=== PATIENT | female | born 1995 | race Caucasian/White ===

== ENCOUNTER 2016-05-26 02:56 | Day surgery (SDC) | payer MEDICAID, OTHER ==
[~2016-05-26] VITALS: Ht 152.4 cm; Wt 55.1 kg
--- OUTSIDE RECORDS SUMMARY | 2016-05-26 03:03 | XMS REPORT | Continuity of Care Document ---
Author Author [facility] Organization [facility] Address [address] [place] [address] Phone Unavailable Care Team Providers Care Mail Courier Name Role Phone ELINA GREENFIELD JR, MD PCP Insurance Providers Payer Name Policy Number Subscriber Name Relationship [facility] [id number] Laure Steiner 19 [facility] [id number] Laure Steiner 18 Self / Same As Patient Advance Directives Directive Response Recorded Date/Time Living Will No 03/27/13 4:41pm Advance Directives No 09/19/14 7:43pm Durable POA for HC No 09/19/14 7:43pm Power of Pressure Supervisor No 09/19/14 7:43pm Organ Donor No 09/19/14 7:42pm Living Will No 09/19/14 7:43pm Problems No known problems or medical conditions. Medications No known medications. Social History Social History Problem Response Recorded Date/Time Smoking Status Never smoker 09/19/2014 8:21pm Smoked in the last 12 months? No 09/19/2014 8:21pm Do you dip or chew tobacco? No 09/19/2014 8:21pm Approx how many cigs per day? 0 09/19/2014 8:21pm Level of Dependence Low 09/19/2014 8:21pm Former smoker, last day smoked? never 09/19/2014 8:21pm Query Response Start Date Stop Date Smoking Status Never smoker Hospital Discharge Instructions No hospital discharge instructions. Plan of Care No plan of care. Functional Status Query Response Date Recorded Activities of Daily Living Performs w/o Assistance September 19, 2014 8:22pm Cognitive Function Intact September 19, 2014 8:22pm Allergies, Adverse Reactions, Alerts No known allergies. Immunizations No immunization records. Vital Signs Acute Vital Signs Vital Response Date/Time Pulse Pulse Ox Pulse Rate (adult) 88 beats per minute (60 - 90) Pulse Location Modifier Right Oxygen Saturation Respiratory Rate 20 breaths per minute (12 - 24) O2 Sat by Pulse Oximetry 97 % (90 - 100) Blood Pressure 137/89 mm Hg Blood Pressure Mean 105 mm Hg Height 5 ft 0 in Weight 125 lb Body Mass Index 24.4 kg/m^2 Results No known relevant diagnostic tests, laboratory data and/or discharge summary. Procedures No known history of procedures. Encounters Encounter Location Date/Time Departed Emergency Room [facility] 09/19/14 7:43pm
[2016-05-26 03:29] LABS: BILIRUBIN,URINE NEGATIVE (NEGATIVE); KETONES,URINE NEGATIVE (NEGATIVE); NITRITE,URINE NEGATIVE (NEGATIVE); PH,URINE 6 (5-9); PROTEIN,URINE NEGATIVE (NEGATIVE); UROBILINOGEN,URINE NORMAL (NORMAL)
[2016-05-26 03:42] LABS: LEUKOCYTE ESTERASE ,URINE 1+ (NEGATIVE)
[2016-05-26 03:43] LABS: BASOPHILS % (AUTO) 0 % (0-10); EOSINOPHILS # (AUTO) 0.3 10^3/uL (0.0-0.3); EOSINOPHILS % (AUTO) 3 % (0-10); LYMPHOCYTES # (AUTO) 4.1 X 10^3 (1.0-4.0); LYMPHOCYTES % (AUTO) 39 % (12-44); MEAN CORPUSCULAR HEMOGLOBIN 30 PG (25-34); MEAN CORPUSCULAR HGB CONC 34 G/DL (32-36); MEAN CORPUSCULAR VOLUME 88 FL (80-99); MEAN PLATELET VOLUME 10.2 FL (7.4-10.4); MONOCYTES # (AUTO) 0.9 X 10^3 (0.0-1.0); MONOCYTES % (AUTO) 9 % (0-12); NEUTROPHILS % (AUTO) 49 % (42-75); PLATELET COUNT 263 10^3/uL (130-400); RED BLOOD COUNT 4.73 10^6/uL (4.35-5.85); RED CELL DISTRIBUTION WIDTH 13.1 % (10.0-14.5); WHITE BLOOD COUNT 10.3 10^3/uL (4.3-11.0)
[2016-05-26 03:43] LABS: WBC,URINE 0-2 /HPF
[2016-05-26 03:57] LABS: ALANINE AMINOTRANSFERASE 12 U/L (0-55); ALBUMIN 4.3 G/DL (3.2-4.5); ANION GAP 11 MMOL/L (5-14); ASPARTATE AMINO TRANSFERASE 16 U/L (5-34); BILIRUBIN,TOTAL 0.4 MG/DL (0.1-1.0); BLOOD UREA NITROGEN 13 MG/DL (7-18); BUN/CREATININE RATIO 15; CALCIUM 9.7 MG/DL (8.5-10.1); CARBON DIOXIDE 24 MMOL/L (21-32); CHLORIDE 106 MMOL/L (98-107); CREATININE SERUM 0.87 MG/DL (0.60-1.30); GFR ESTIMATED > 60; GLUCOSE 91 MG/DL (70-105); POTASSIUM 3.8 MMOL/L (3.6-5.0); SODIUM 141 MMOL/L (135-145); TOTAL PROTEIN 7.1 G/DL (6.4-8.2)
[2016-05-26] MEDS ORDERED: NS 100 ML (IVPB) BAG IV ONE (04:00)
[2016-05-26] MEDS ORDERED: IOHEXOL 350 MG/ML 100 ML (OMNIPAQUE 350) VIAL IV ONE (04:00)
[2016-05-26] MEDS ORDERED: KETOROLAC 30 MG/ML VIAL IVP ONE (05:15)
[2016-05-26] MEDS ORDERED: PIPERACILLIN SODIUM/TAZOBACTAM 4.5 GM in NS (IVPB) 100 ML IV ONE ×2 (05:15→13:45)
[2016-05-26] MEDS ORDERED: D5 1/2 NS 1000 ML IV SOLUTION 1,000 ML IV ONE (06:00)
[2016-05-26] MEDS: D5 1/2 NS 1000 ML IV SOLUTION 1,000 ML IV SCH ×2 (06:10→11:21)
[2016-05-26] MEDS ORDERED: ONDANSETRON 4 MG/2 ML (SDV) Z0FRAN IV PRN (06:15)
[2016-05-26] MEDS ORDERED: fentaNYL INJECTION 100 MCG/2 ML AMP IV PRN (06:30)
[2016-05-26] MEDS ORDERED: CATHETER FLUSH 10 ML SYR IV PRN (06:30)
--- NOTE | 2016-05-26 06:37 | ED Abdominal Pain ---
General Chief Complaint: Abdominal/GI Problems Stated Complaint: RLQ PAIN POSSIBLE APPENDICITIS Nursing Triage Note: Pt. advises lower abdominal pain that has become progressively worse. She advises a previous hx. of bladder and kidney infections. Sepsis Screen: No Definite Risk Source of Information: Patient History of Present Illness Time Seen By Provider: 03:23 Initial Comments PT STATES FOR THE LAST 2 DAYS SHE HAS HAD A CONSTANT DULL PAIN IN LOWER ABDOMEN TONIGHT PAIN IS MUCH WORSE AND SHARP AND IS IN RLQ AND RADIATES TO RIGHT FLANK HAS SOME PAIN AT THE END OF VOIDING, BUT OTHERWISE NO URINARY SYMPTOMS + NAUSEA, NO VOMITING. C/O DECREASED APPETITE--LAST FOOD INTAKE WAS 1700 YESTERDAY NO KNOWN FEVER, BUT HAS BEEN HAVING CHILLS LMP 1 WEEK AGO, ON OCP'S. DENIES MISSED DOSES OF PILLS. PCP: NONE--JUST MOVED HERE IN JANUARY FROM [place] Allergies and Home Medications Allergies Coded Allergies: No Known Drug Allergies (Unverified , 05/26/16) Review of Systems Constitutional: see HPI chills EENTM: No Symptoms Reported Respiratory: No Symptoms Reported Cardiovascular: No Symptoms Reported Gastrointestinal: See HPI Abdominal PainDenies Diarrhea, Nausea Poor AppetiteDenies Vomiting Genitourinary: See HPIDenies Burning, Denies Frequency, Flank PainDenies Hematuria, PainDenies Urgency Musculoskeletal: see HPI back pain Skin: no symptoms reported Psychiatric/Neurological: No Symptoms Reported Endocrine: No Symptoms Reported Hematologic/Lymphatic: No Symptoms Reported Past Iwilfgo-Wsphdy-Xlqnpo Hx Patient Social History Alcohol Use: Denies Use Recreational Drug Use: No Smoking Status: Never a Smoker Recent Foreign Travel: No Contact w/Someone Who Travel: No Recent Infectious Disease Expo: No Recent Hopitalizations: No Seasonal Allergies Seasonal Allergies: No Surgeries HX Surgeries: No Respiratory Hx Respiratory Disorders: Yes Respiratory Disorders: Asthma Cardiovascular Hx Cardiac Disorders: Yes Cardiac Disorders: Heart Murmur, Valvular Heart Disease Neurological Hx Neurological Disorders: No Reproductive System : No Hx : 1 Hx Para: 1 Hx Reproductive Disorders: No Female Reproductive Disorders: Denies Genitourinary Hx Genitourinary Disorders: Yes (HAS UTI'S APPROXIMATELY ONCE A YEAR ) Genitourinary Disorders: Kidney Infection, Bladder Infection Gastrointestinal Hx Gastrointestinal Disorders: No Musculoskeletal Hx Musculoskeletal Disorders: No Endocrine Hx Endocrine Disorders: No HEENT HX ENT Disorders: No Cancer Hx Cancer: No Psychosocial Hx Psychiatric Problems: No Integumentary HX Skin/Integumentary Disorder: No Blood Transfusions Hx Blood Disorders: No Physical Exam Vital Signs VS - Last 72 Hours, by Label 05/26/16 03:23 Pulse 86 Resp 12 B/P 127/77 Pulse Ox 98 O2 Delivery Room Air Capillary Refill : Less Than 3 Seconds General Appearance: WD/WN no apparent distress other (WALKS UPRIGHT AND MOVES WITHOUT DIFFICULTY) HEENT: PERRL/EOMI Neck: normal inspection Respiratory: normal breath sounds no respiratory distress no accessory muscle use Cardiovascular: regular rate, rhythm no murmur Gastrointestinal: normal bowel sounds soft no organomegaly no pulsatile massNo distended, No guarding, No rebound, tenderness (SIGNIFICANT TENDERNESS IN RLQ AND SUPRAPUBIC AREA, MILD TO MODERATE TENDERNESS IN RIGHT FLANK AND IN LLQ. EQUIVOCAL ROVSING'S. NEGATIVE HEEL TAP. EQUIVOCAL PSOAS AND OBTURATOR SIGNS. ) Back: CVA tenderness (R) Neurologic/Psychiatric: ribbon lapper tender II-XII nml as tested no motor/sensory deficits alert normal mood/affect oriented x 3 Skin: normal color warm/dryNo rash Progress/Results/Core Measures Results/Orders Lab Results Laboratory Tests Test 05/26/16 03:10 05/26/16 03:19 Range/Units Urine Bacteria TRACE /HPF Urine Bilirubin NEGATIVE NEGATIVE Urine Casts NONE /LPF Urine Clarity CLEAR Urine Color YELLOW Urine Crystals NONE /LPF Urine Culture Indicated NO Urine Glucose (UA) NEGATIVE NEGATIVE Urine Ketones NEGATIVE NEGATIVE Urine Leukocyte Esterase 1+ H NEGATIVE Urine Mucus NEGATIVE /LPF Urine Nitrite NEGATIVE NEGATIVE Urine Protein NEGATIVE NEGATIVE Urine RBC NONE /HPF Urine RBC (Auto) NEGATIVE NEGATIVE Urine Specific [place] 1.010 L 1.016-1.022 Urine Squamous Epithelial Cells 5-10 /HPF Urine Urobilinogen NORMAL NORMAL MG/DL Urine WBC 0-2 /HPF Urine pH 6 5-9 Alanine Aminotransferase (ALT/SGPT) 12 0-55 U/L Albumin 4.3 3.2-4.5 G/DL Alkaline Phosphatase 93 40-136 U/L Anion Gap 11 5-14 MMOL/L Aspartate Amino Transf (AST/SGOT) 16 5-34 U/L BUN/Creatinine Ratio 15 Basophils # (Auto) 0.0 0.0-0.1 10^3/uL Basophils (%) (Auto) 0 0-10 % Blood Urea Nitrogen 13 7-18 MG/DL Calcium Level 9.7 8.5-10.1 MG/DL Carbon Dioxide Level 24 21-32 MMOL/L Chloride Level 106 98-107 MMOL/L Creatinine 0.87 0.60-1.30 MG/DL Eosinophils # (Auto) 0.3 0.0-0.3 10^3/uL Eosinophils (%) (Auto) 3 0-10 % Estimat Glomerular Filtration Rate > 60 Glucose Level 91 70-105 MG/DL Hematocrit 42 35-52 % Hemoglobin 14.1 11.5-16.0 G/DL Lymphocytes # (Auto) 4.1 H 1.0-4.0 X 10^3 Lymphocytes (%) (Auto) 39 12-44 % Mean Corpuscular Hemoglobin 30 25-34 PG Mean Corpuscular Hemoglobin Concent 34 32-36 G/DL Mean Corpuscular Volume 88 80-99 FL Mean Platelet Volume 10.2 7.4-10.4 FL Monocytes # (Auto) 0.9 0.0-1.0 X 10^3 Monocytes (%) (Auto) 9 0-12 % Neutrophils # (Auto) 5.0 1.8-7.8 X 10^3 Neutrophils (%) (Auto) 49 42-75 % Platelet Count 263 130-400 10^3/uL Potassium Level 3.8 3.6-5.0 MMOL/L Red Blood Count 4.73 4.35-5.85 10^6/uL Red Cell Distribution Width 13.1 10.0-14.5 % Sodium Level 141 135-145 MMOL/L Total Bilirubin 0.4 0.1-1.0 MG/DL Total Protein 7.1 6.4-8.2 G/DL White Blood Count 10.3 4.3-11.0 10^3/uL My Orders Orders-GARDENIA XIAO DO Ua Culture If Indicated (05/26/16 03:23) Urine Bedside (05/26/16 03:23) Cbc With Automated Diff (05/26/16 03:32) Comprehensive Metabolic Panel (05/26/16 03:32) Ct Abd/Pelv W (Appendicitis) (05/26/16 03:52) Iohexol Injection (Omnipaque 350 Mg/Ml 1 (05/26/16 04:00) Ns (Ivpb) (Sodium Chloride 0.9% Ivpb Bag (05/26/16 04:00) Medications Given in ED Current Medications Medications Dose Ordered Sig/Rodger Route Start Time Stop Time Status Last Admin Dose Admin Iohexol 100 ml ONCE ONCE IV 05/26/16 04:00 05/26/16 06:14 DC 05/26/16 04:13 100 ML Sodium Chloride 100 ml ONCE ONCE IV 05/26/16 04:00 05/26/16 06:14 DC 05/26/16 04:13 80 ML Vital Signs/I&O Vital Sign - Last 12Hours 05/26/16 03:23 Pulse 86 Resp 12 B/P 127/77 Pulse Ox 98 O2 Delivery Room Air Blood Pressure Mean: 94 Point of Care Testing Urine -Bedside: Negative Diagnostic Imaging Comments CT ABDOMEN/PELVIS--APPENDIX 6 MM WITHOUT EVIDENCE OF INTRALUMINAL FLUID OR ADJACENT INFILTRATIVE CHANGES, BILATERAL ADNEXAL CYSTS 4.7 CM ON LEFT, 5.5 CM ON RIGHT--PER [facility] VIA FAX @ [phone] Reviewed: Reviewed by Me Departure Communication Progress Notes 0505--SPOKE WITH DR. POLANCO, ACCEPTS PT FOR ADMIT, ORDERS NOTED. Impression Impression: Primary Impression: RLQ PAIN, POSSIBLE APPENDICITIS Disposition: ADMITTED INPATIENT Condition: Stable Decision to Admit Reason: Admit from ER (General) Decision to Admit/Date: May 26, 2016 Time/Decision to Admit Time: 05:05 Departure-Patient Inst. Referrals: NO,LOCAL PHYSICIAN (PCP) Primary Care Physician GARDENIA XIAO DO May 26, 2016 06:37
[2016-05-26 08:00] VITALS: BP 100/61
--- NOTE | 2016-05-26 08:07 | Diagnostic Imaging Report ---
PROCEDURE: CT abdomen and pelvis with contrast, rule out appendicitis. TECHNIQUE: Multiple contiguous axial images were obtained through the abdomen and pelvis after the administration of intravenous contrast. INDICATION: Right lower quadrant pain. Appendix best seen on axial image 80 with maximal transverse diameter 5.7 mm. No appreciable periappendiceal edema or infiltration of the adjacent fat. No appendicolith. No findings felt suggestive of evidence for appendicitis. There is an elongated thin walled left adnexal cyst presumed ovarian 4.6 x 3.3 cm. The uterus, right adnexa and urinary bladder appeared normal. There is probable posterior uterine body and fundal fibroids There is no hydronephrosis or perinephric edema. The gallbladder contracted with no visualized stone. Liver, bile ducts, spleen, adrenals and pancreas unremarkable. IMPRESSION: Unremarkable appendix, large left ovarian/adnexal cyst. Likely chronic uterine fibroids. Unobstructed urinary tracts, no focal inflammatory process, ascites or viscus perforation. Dictated by: Dictated on workstation # [id number]
--- NOTE | 2016-05-26 08:39 | History & Physical-Surgical ---
History of Present Illness History of Present Illness Reason for visit/HPI Patient reports that she has been having right lower quadrant pain for the last 2 days. Patient states that she was at work when it first stated and she tried to power through her shift. Reports some nausea but no vomiting. She describes pain as sharp. Abdomen is soft to palpation. Patient complains of pain with palpation to the right lower quadrant. No rebound tenderness. Patient was admitted to the hospital through the ER. Denied any fever in the last two days. She also states that nothing made the pain better or worse. Date of Admission May 26, 2016 at 05:05 I consulted on this patient on 05/26/16 08:34 Attending Physician Rupert Polanco DO Admitting Physician Susanna,Local Physician Consult Allergies and Home Medications Allergies Coded Allergies: No Known Drug Allergies (Unverified , 05/26/16) Home Medications Docusate Sodium 100 Mg Capsule #60 100 MG PO BID Prescribed by: RUPERT POLANCO on 05/26/16 1345 Hydrocodone/Acetaminophen 1 Each Tablet #30 1 TAB PO Q4H PRN PRN Prescribed by: RUPERT POLANCO on 05/26/16 1345 Norgestimate-Ethinyl Estradiol 1 Each Tablet 1 TAB PO DAILY (Reported) Past Olyiezl-Frbxrk-Tycicu Hx Patient Social History Alcohol Use: Denies Use Recreational Drug Use: No Smoking Status: Never a Smoker Recent Foreign Travel: No Contact w/Someone Who Travel: No Recent Infectious Disease Expo: No Recent Hopitalizations: No Physical Abuse Screen: No Sexual Abuse: No Immunizations Up To Date Date of Influenza Vaccine: Jan 17, 2016 Seasonal Allergies Seasonal Allergies: No Surgeries HX Surgeries: No Respiratory Hx Respiratory Disorders: Yes Respiratory Disorders: Asthma Cardiovascular Hx Cardiac Disorders: Yes Cardiac Disorders: Heart Murmur, Valvular Heart Disease Neurological Hx Neurological Disorders: No Reproductive System : No Hx : 1 Hx Para: 1 Hx Reproductive Disorders: No Sexually Transmitted Disease: No HIV/AIDS: No Female Reproductive Disorders: Denies Genitourinary Hx Genitourinary Disorders: Yes (HAS UTI'S APPROXIMATELY ONCE A YEAR ) Genitourinary Disorders: Kidney Infection, Bladder Infection Gastrointestinal Hx Gastrointestinal Disorders: No Musculoskeletal Hx Musculoskeletal Disorders: No Endocrine Hx Endocrine Disorders: No HEENT HX ENT Disorders: No Cancer Hx Cancer: No Psychosocial Hx Psychiatric Problems: No Integumentary HX Skin/Integumentary Disorder: No Blood Transfusions Hx Blood Disorders: No Adverse Reaction to a Blood Tr: No Family Medical History Significant Family History: No Pertinent Family Hx Constitutional: see HPI EENTM: no symptoms reported Respiratory: no symptoms reported Cardiovascular: no symptoms reported Gastrointestinal: RLQ nausea Genitourinary: no symptoms reported Musculoskeletal: no symptoms reported Skin: no symptoms reported Psychiatric/Neurological: No Symptoms Reported Physical Exam Vital Signs Vital Sign - Last 12Hours 05/26/16 05/26/16 03:23 08:00 Temp 98.3 Pulse 86 Resp 12 B/P 127/77 Pulse Ox 98 O2 Delivery Room Air Capillary Refill : Less Than 3 Seconds General Appearance: No Apparent Distress WD/WN Neck: Normal Inspection Non Tender Respiratory: Chest Non Tender No Accessory Muscle Use No Respiratory Distress Cardiovascular: Regular Rate, Rhythm Gastrointestinal: No Organomegaly No Pulsatile Mass Soft Tenderness (RLQ and suprapubic) Extremity: Non Tender No Calf Tenderness No Pedal Edema Neurologic/Psychiatric: Alert Oriented x3 Skin: Normal Color Data Review Labs Microbiology 05/26/16 MRSA Screen - Final, Complete MRSA not isolated Radiology NAME: ALVARO KIDD [facility] REC#: [id number] PT STATUS: ADM Kaci : 1995 PHYSICIAN: GARDENIA XIAO DO ADMIT DATE: 05/26/16 Draft Date of Exam:05/26/16 CT ABD/PELV W (APPENDICITIS) PROCEDURE: CT abdomen and pelvis with contrast, rule out appendicitis. TECHNIQUE: Multiple contiguous axial images were obtained through the abdomen and pelvis after the administration of intravenous contrast. INDICATION: Right lower quadrant pain. Appendix best seen on axial image 80 with maximal transverse diameter 5.7 mm. No appreciable periappendiceal edema or infiltration of the adjacent fat. No appendicolith. No findings felt suggestive of evidence for appendicitis. There is an elongated thin walled left adnexal cyst presumed ovarian 4.6 x 3.3 cm. The uterus, right adnexa and urinary bladder appeared normal. There is probable posterior uterine body and fundal fibroids There is no hydronephrosis or perinephric edema. The gallbladder contracted with no visualized stone. Liver, bile ducts, spleen, adrenals and pancreas unremarkable. IMPRESSION: Unremarkable appendix, large left ovarian/adnexal cyst. Likely chronic uterine fibroids. Unobstructed urinary tracts, no focal inflammatory process, ascites or viscus perforation. Dictated on workstation # [id number] Dict: 05/26/16 0800 Trans: 05/26/16 0806 [facility] [id number] Interpreted by: SO LARKIN Electronically signed by: Assessment/Plan Assessment/Plan Assessment/Plan RLQ pain Nausea Large left ovarian/adnexal cyst. Currently Transvaginal Ultrasound has been ordered. Patient NPO. Possible diagnostic Laparoscopy, cystectomy, possible oophorectomy and all other indicated procedures for this afternoon. We will continue to monitor pt. Oly- patient is mzaclpn-bbtt-xub female who is been having a dull aching pain in the right lower quadrant last 2 days. Pain this morning became sharp pain more focalized to the right lower quadrant. No radiation of the pain. Pain is moderate to severe. Nothing seems to make worsened nothing seems to make it better for her she states. Patient was also having associated nausea but no emesis. Patient has CT scan due to straining bilateral adnexal cysts and appendix was upper limits of normal size. She denies any fever sweats chills shortness of breath or chest pain. Gen. patient's in no acute distress Head is normocephalic atraumatic eyes nonicteric nares are patent mouth is moist trachea is midline Heart regular Lungs nonlabored breathing Abdomen soft point tenderness the right lower quadrant at McBurney's point Extremities nontender Normal mood and affect Alert and oriented Right lower quadrant abdominal pain, ovarian cysts, possible appendicitis. Patient exam consistent with appendicitis but also may be ovarian in nature. Discussed with patient risk and benefits of diagnostic laparoscopy all other indicated procedures such as appendectomy cystectomy oophorectomy. She understands and wishes to proceed. Discussed with Dr. Buckley and we'll get a transvaginal ultrasound prior to diagnostic laparoscopy. Also obtain urine test. Zosyn. Clinical Quality Measures DVT/VTE Risk/Contraindication: Risk Factor Score Per Nursin RFS Level Per Nursing on Admit: 1=Low/No VTE PPX BLAKE MCCALL APRN May 26, 2016 08:39 RUPERT POLANCO DO May 26, 2016 09:27 Patient exam consistent with appendicitis but also may be ovarian in nature. Discussed with patient risk and benefits of diagnostic laparoscopy all other indicated procedures such as appendectomy cystectomy oophorectomy. She understands and wishes to proceed. Discussed with Dr. Buckley and we'll get a transvaginal ultrasound prior to diagnostic laparoscopy. Also obtain urine test. Carlos. Clinical Quality Measures DVT/VTE Risk/Contraindication: Risk Factor Score Per Nursin RFS Level Per Nursing on Admit: 1=Low/No VTE PPX STEFANYSTUPEDRO Lucas APRN May 26, 2016 08:39 RUPERT POLANCO DO May 26, 2016 09:27 Glucose Level 91 70-105 MG/DL Hematocrit 42 35-52 % Hemoglobin 14.1 11.5-16.0 G/DL Lymphocytes # (Auto) 4.1 H 1.0-4.0 X 10^3 Lymphocytes (%) (Auto) 39 12-44 % Mean Corpuscular Hemoglobin 30 25-34 PG Mean Corpuscular Hemoglobin Concent 34 32-36 G/DL Mean Corpuscular Volume 88 80-99 FL Mean Platelet Volume 10.2 7.4-10.4 FL Monocytes # (Auto) 0.9 0.0-1.0 X 10^3 Monocytes (%) (Auto) 9 0-12 % Neutrophils # (Auto) 5.0 1.8-7.8 X 10^3 Neutrophils (%) (Auto) 49 42-75 % Platelet Count 263 130-400 10^3/uL Potassium Level 3.8 3.6-5.0 MMOL/L Red Blood Count 4.73 4.35-5.85 10^6/uL Red Cell Distribution Width 13.1 10.0-14.5 % Sodium Level 141 135-145 MMOL/L Total Bilirubin 0.4 0.1-1.0 MG/DL Total Protein 7.1 6.4-8.2 G/DL White Blood Count 10.3 4.3-11.0 10^3/uL Radiology NAME: ALVARO KIDD Ricardo [facility] REC#: [id number] PT STATUS: ADM Kaci : 1995 PHYSICIAN: GARDENIA XIAO DO ADMIT DATE: 05/26/16/ Draft Date of Exam:05/26/16 CT ABD/PELV W (APPENDICITIS) PROCEDURE: CT abdomen and pelvis with contrast, rule out appendicitis. TECHNIQUE: Multiple contiguous axial images were obtained through the abdomen and pelvis after the administration of intravenous contrast. INDICATION: Right lower quadrant pain. Appendix best seen on axial image 80 with maximal transverse diameter 5.7 mm. No appreciable periappendiceal edema or infiltration of the adjacent fat. No appendicolith. No findings felt suggestive of evidence for appendicitis. There is an elongated thin walled left adnexal cyst presumed ovarian 4.6 x 3.3 cm. The uterus, right adnexa and urinary bladder appeared normal. There is probable posterior uterine body and fundal fibroids There is no hydronephrosis or perinephric edema. The gallbladder contracted with no visualized stone. Liver, bile ducts, spleen, adrenals and pancreas unremarkable. IMPRESSION: Unremarkable appendix, large left ovarian/adnexal cyst. Likely chronic uterine fibroids. Unobstructed urinary tracts, no focal inflammatory process, ascites or viscus perforation. Dictated on workstation # [id number] Dict: 05/26/16 0800 Trans: 05/26/16 0806 [facility] [id number] Interpreted by: SO LARKIN Electronically signed by: Assessment/Plan Assessment/Plan Assessment/Plan RLQ pain Nausea left adnexal cyst presumed ovarian 4.6 x 3.3 cm. Currently Transvaginal Ultrasound has been ordered. Patient NPO. Possible diagnostic Laparotomy, cystectomy, possible oophorectomy and all other indicated procedures for this afternoon. We will continue to monitor pt. Clinical Quality Measures DVT/VTE Risk/Contraindication: Risk Factor Score Per Nursin RFS Level Per Nursing on Admit: 1=Low/No VTE PPX BLAKE MCCALL APRN May 26, 2016 08:39
[2016-05-26] MEDS ORDERED: NORG1TAB6 PO (09:09)
[2016-05-26 09:55] VITALS: BP 97/58
--- NOTE | 2016-05-26 10:32 | Diagnostic Imaging Report ---
EXAMINATION: Transvaginal pelvic ultrasound. INDICATION: Pelvic pain. FINDINGS: The uterus is 7.3 x 4.6 x 3.8 cm. The endometrial stripe is 6 mm in thickness. The myometrium demonstrate no discrete mass. Slight heterogeneity in the anterior myometrium however is seen. The right ovary is 5.8 x 5.4 x 6.2 CM with a 5.4 x 5.3 x 4.8 cm unilocular cystic lesion seen without a solid component identified. The left ovary is 5.2 x 5.6 x 3 CM. Similar on the right side there is a 4.6 x 2.4 x 4.4 cm unilocular cystic lesion with no solid component identified. Arterial and venous waveforms are demonstrated in the peripheral ovarian tissue around the cystic lesions seen on both sides. IMPRESSION: Relatively large unilocular cystic lesions in the ovaries bilaterally. These could be large simple ovarian cysts versus low-grade cystic neoplasms. Followup with ultrasound in 6 months is recommended. Dictated by: Dictated on workstation # [id number]
[2016-05-26] MEDS ORDERED: LIDOCAINE 1% INJ 20 ML (XYLOCAINE) VIAL ONE (11:24)
[2016-05-26] MEDS ORDERED: BUPIVACAINE 0.5% 30 ML (SENSORCAINE) VIAL ONE (11:25)
[2016-05-26] MEDS ORDERED: ONDANSETRON 4 MG/2 ML (SDV) Z0FRAN ONE (11:32)
[2016-05-26] MEDS ORDERED: ROCURONIUM 50 MG/5 ML (ZEMURON) VIAL IV ONE (11:32)
[2016-05-26] MEDS ORDERED: proPOfol 200 MG/20 ML (DIPRIVAN) VIAL IV ONE (11:32)
[2016-05-26] MEDS ORDERED: fentaNYL INJECTION 100 MCG/2 ML AMP ONE (11:32)
[2016-05-26] MEDS ORDERED: LACTATED RINGERS 1,000 ML IV ONE (11:32)
[2016-05-26] MEDS ORDERED: LIDOCAINE PF 2% 10 ML (XYLOCAINE) AMP ONE (11:32)
[2016-05-26] MEDS ORDERED: MIDAZOLAM 2 MG/2 ML (VERSED) VIAL ONE (11:33)
[2016-05-26] MEDS ORDERED: DEXAMETHASONE PF 10 MG/ML (DECADRON) VIAL ONE (11:33)
[2016-05-26] MEDS ORDERED: KETOROLAC 30 MG/ML VIAL ONE (11:36)
[2016-05-26] MEDS ORDERED: SEVOFLURANE (ULTANE) 15 ML INHAL SOLN ONE ×6 (11:37→13:55)
[2016-05-26] MEDS ORDERED: LACTATED RINGERS 1,000 ML IV PRN (12:15)
[2016-05-26] MEDS ORDERED: ceFAZolin 1,000 MG (ANCEF) VIAL ONE (12:16)
--- NOTE | 2016-05-26 13:44 | Progress Note-Post Operative ---
Post-Operative Progess Note Pre-Operative Diagnosis rlq abdominal pain Post-Operative Diagnosis early appendicitis b/l ovarian cyst Post-Op Procedure Note Date of Procedure: May 26, 2016 Name of Procedure: laparoscopic appendectomy- Oly. b/l cystectomy- Dr. Buckley Procedure Note/Findings see note Anesthesia Type general Estimated blood loss (mL): minimal Specimen(s) collected appendix, b/l cyst wall RUPERT POLANCO DO May 26, 2016 13:44
[2016-05-26] MEDS ORDERED: HYDR-3812 PO (13:45)
[2016-05-26] MEDS ORDERED: DOCU-143 PO (13:45)
[2016-05-26] MEDS ORDERED: HYDROcodone/APAP 5 MG/325 MG (LORTAB) TAB PO PRN (13:45)
--- NOTE | 2016-05-26 13:47 | Discharge Inst-Simple/Standard ---
Discharge Inst-Standard Discharge Medications New, Converted or Re-Newed RX: RX on Chart Patient Instructions/Follow Up Plan of Care/Instructions/FU: Oly 2 weeks. Ina 2 weeks. Activity as Tolerated: No Discharge Diet: Regular Diet Other Inst to Patient Follow up Appt: Make appointment for 2 week Mari. Instructions: No lifting greater than 10 pounds. No strenuous activity. May shower in 24 hours, no tub bath or soaking. Use incentive spirometer at home as directed. No Smoking Skin/Wound Care: May remove bandages in 24 hours. You need to leave the white strips over incision on they will fall off on their own. Symptoms to Report: Appetite Changes, Extremity Discoloration, Numbness/Tingling, Swelling Increased , Bleeding Excessive, Eyesight Changes, Pain Increased, Urine Color Change, Constipation(Persistent), Fever over 101 degree F, Pain/Pressure in chest, Urinating Difficulty, Cough Up/Vomit Blood, Heart Beat Irreg/Pounding, Pain/ Pressure in jaw, Vaginal Bleeding Increase, Cramps in feet or legs, Lightheadedness, Pain/Pressure in shoulder, Diarrhea(Persistent), Memory Changes Suddenly, Questions/Concerns, Weight gain consecutive days, Dizziness/ Fainting, Nausea/Vomiting, Shortness of Breath, Weight gain over 2 pounds If questions or concerns contact your physician Or seek help at emergency department. RUPERT POLANCO DO May 26, 2016 13:47
[2016-05-26] MEDS ORDERED: CATHETER FLUSH 10 ML SYR IV SCH (14:00)
[2016-05-26] MEDS ORDERED: MEPERIDINE (DEMEROL) INJ 50 MG/ML IVP PRN (14:00)
[2016-05-26] MEDS ORDERED: morphine INJ 10 MG/ML 1ML (SYR OR VIAL) IVP PRN (14:00)
[2016-05-26] MEDS ORDERED: ONDANSETRON 4 MG/2 ML (SDV) Z0FRAN IVP PRN (14:00)
[2016-05-26] MEDS ORDERED: HYDROmorphone (DILAUDID) 2 MG/ML VIAL IVP PRN (14:00)
[2016-05-26 14:58] VITALS: BP 104/68
--- NOTE | 2016-05-26 16:43 | Progress Note ---
Objective Exam Vital Signs Date Time Temp Pulse Resp B/P Pulse Ox O2 Delivery O2 Flow Rate FiO2 05/26/16 14:58 97.4 81 16 104/68 100 Room Air 05/26/16 09:55 98.4 68 18 97/58 98 Room Air 05/26/16 08:00 98.3 64 20 100/61 97 Room Air 05/26/16 06:00 87 14 98 05/26/16 03:23 86 12 127/77 98 Room Air I & O 05/26/16 07:00 Intake Total 100 ml Output Total 0 ml Balance 100 ml Capillary Refill : Less Than 3 Seconds General Appearance: No Apparent Distress WD/WN Neck: Normal Inspection Non Tender Respiratory: Chest Non Tender No Accessory Muscle Use No Respiratory Distress Cardiovascular: Regular Rate, Rhythm Gastrointestinal: normal bowel sounds soft no organomegaly no pulsatile massNo distended, No guarding, No rebound, tenderness (SIGNIFICANT TENDERNESS IN RLQ AND SUPRAPUBIC AREA, MILD TO MODERATE TENDERNESS IN RIGHT FLANK AND IN LLQ. EQUIVOCAL ROVSING'S. NEGATIVE HEEL TAP. EQUIVOCAL PSOAS AND OBTURATOR SIGNS. ) Extremity: Non Tender No Calf Tenderness No Pedal Edema Neurologic/Psychiatric: Alert Oriented x3 Skin: Normal Color Results Lab Laboratory Tests 05/26/16 03:10: Urine Bacteria TRACE, Urine Bilirubin NEGATIVE, Urine Casts NONE, Urine Clarity CLEAR, Urine Color YELLOW, Urine Crystals NONE, Urine Culture Indicated NO, Urine Glucose (UA) NEGATIVE, Urine Ketones NEGATIVE, Urine Leukocyte Esterase 1+ H, Urine Mucus NEGATIVE, Urine Nitrite NEGATIVE, Urine Protein NEGATIVE, Urine RBC NONE, Urine RBC (Auto) NEGATIVE, Urine Specific [place] 1.010L, Urine Squamous Epithelial Cells 5-10, Urine Urobilinogen NORMAL, Urine WBC 0-2, Urine pH 6 05/26/16 03:19: Alanine Aminotransferase (ALT/SGPT) 12, Albumin 4.3, Alkaline Phosphatase 93, Anion Gap 11, Aspartate Amino Transf (AST/SGOT) 16, BUN/Creatinine Ratio 15, Basophils # (Auto) 0.0, Basophils (%) (Auto) 0, Blood Urea Nitrogen 13, Calcium Level 9.7, Carbon Dioxide Level 24, Chloride Level 106, Creatinine 0.87, Eosinophils # (Auto) 0.3, Eosinophils (%) (Auto) 3, Estimat Glomerular Filtration Rate > 60, Glucose Level 91, Hematocrit 42, Hemoglobin 14.1, Lymphocytes # (Auto) 4.1H, Lymphocytes (%) (Auto) 39, Mean Corpuscular Hemoglobin 30, Mean Corpuscular Hemoglobin Concent 34, Mean Corpuscular Volume 88, Mean Platelet Volume 10.2, Monocytes # (Auto) 0.9, Monocytes (%) (Auto) 9, Neutrophils # (Auto) 5.0, Neutrophils (%) (Auto) 49, Platelet Count 263, Potassium Level 3.8, Red Blood Count 4.73, Red Cell Distribution Width 13.1, Sodium Level 141, Total Bilirubin 0.4, Total Protein 7.1, White Blood Count 10.3 05/26/16 10:50: Urine Test NEGATIVE Assessment/Plan Assessment/Plan Assessment/Plan RLQ pain s/p appendectomy b/l cystectomy early appendicitis Final Diagnosis RLQ pain s/p laparoscopic appendectomy b/l cystectomy early appendicitis Clinical Quality Measures DVT/VTE Risk/Contraindication: Risk Factor Score Per Nursin RFS Level Per Nursing on Admit: 1=Low/No VTE PPX RUPERT POLANCO DO May 26, 2016 16:42
[2016-05-26 17:31] VITALS: BP 113/71
--- NOTE | 2016-05-26 20:39 | OB/GYN Operative Report ---
Operative Report Date of Procedure: May 26, 2016 Preoperative Diagnosis: Bilateral ovarian cysts, pelvic pain, possible appendicitis Postoperative Diagnosis: Same plus early appendicitis Procedure: Operative laparoscopy, appendectomy (Dr. Aldridge), bilateral ovarian cystectomies (myself) Surgeon: Dr. Amarjit Aldridge, Dr. Remi Buckley Anesthesia: General Indications for Procedure: This is a 21 year old female who presented to the ER with abdominal pain. CT scan was concerning for appendicitis; there were also bilateral ovarian cysts noted, right greater than left in size. They were simple in appearance and ultrasound was ordered as a confirmatory gynecologic study. Bilateral cysts were simple in appearance with no ultrasonographic findings concerning for malignancy. Dr. Aldridge asked me to assist him in this case for possible ovarian cystectomies. The patient was aware of the possibility of oophorectomy and consented to all indicated procedures. I unfortunately was not able to visit with the patient prior to the case but Dr. Aldridge had discussed these procedures with her. She reportedly has been off oral contraceptive pills which she utilizes partially for reduction of ovarian cyst formation which she has had in the past, but plans to fill this prescription today from her mold operator in [place]. Estimated Blood Loss: Minimal Specimens: Bilateral ovarian cyst rodriguez to pathology; appendix to pathology Findings: Bilateral simple ovarian cysts, right greater than left in size. Normal appearing uterus and bilateral fallopian tubes. Remainder of abdominal and pelvic survey as per Dr. Aldridge. Procedure: Please see Dr. Aldridge's dictation for the description of the operative laparoscopy with appendectomy. Following appendectomy, I performed a pelvic survey which noted the aforementioned findings. The right ovary was gently lifted out of the pelvis. The Harmonic scalpel was utilized to drain the right ovarian cyst with clear fluid noted and quickly removed from the pelvis with suction. The cyst wall was from healthy appearing ovarian tissue with the use of the Harmonic scalpel. This was completely excised from the ovary and removed intact and sent to pathology. Floseal was placed in the cyst wall bed of the right ovary for excellent hemostasis, and the ovary was returned to the pelvis. Great care was taken to avoid injury to the fallopian tube. The same procedure was repeated on the patient's left side, with again noted clear fluid. The abdomen and pelvis were inspected and noted to be hemostatic. Please see Dr. Aldridge's note for further details on the case including closure. The patient was awakened from general anesthesia and taken to recovery in stable condition. Sponge, lap and needle counts were correct. Complications: None Disposition: Recovery room, stable REMI BUCKLEY MD May 26, 2016 20:39
--- NOTE | 2016-05-27 13:35 | Anesthesia-General Post-Op ---
General Patient Condition Mental Status/LOC: Same as Preop Cardiovascular: Satisfactory Nausea/Vomiting: Absent Respiratory: Satisfactory Pain: Controlled Complications: Absent Post Op Complications Complications None Follow Up Care/Instructions Patient Instructions None needed. Anesthesia/Patient Condition Patient Condition Patient is doing well, no complaints, stable vital signs, no apparent adverse anesthesia problems. No complications reported per nursing. D/C home per [facility] Criteria: Yes KAILA CHAPPELL CRNA May 27, 2016 13:34
--- NOTE | 2016-05-28 08:03 | OPERATIVE REPORT ---
PROCEDURE PHYSICIAN: RUPERT POLANCO DATE OF PROCEDURE: 05/26/2016 PREOPERATIVE DIAGNOSIS: Right lower quadrant abdominal pain. POSTOPERATIVE DIAGNOSIS: 1. Early appendicitis. 2. Bilateral ovarian cyst. PROCEDURE: Laparoscopic appendectomy performed by myself and bilateral cystectomy by Dr. Buckley SURGEON: Oly. ANESTHESIA: General. ESTIMATED BLOOD LOSS: Minimal. COMPLICATIONS: None. INDICATIONS: The patient is a 21-year-old female who presented with 2 days of right lower quadrant abdominal pain that was dull, which then became more sharp and pinpoint. The patient had a CT scan, which I reviewed with Dr. Harvey. The appendix did appear to be fairly normal but there was some very slight straightening appearance around this area. The patient also with a large cyst to the right ovary and also to the left. Transvaginal ultrasound was also performed which demonstrated these to be likely simple cysts. The patient's physical exam was consistent with appendicitis. I discussed the risks and benefits of diagnostic laparoscopy and all other indicated procedures with the patient which she understands the risks and benefits and wished to proceed. Consent was on the chart. PROCEDURE: The patient was taken to the operating suite. She was prepped and draped in the sterile fashion. A surgical pause was performed. A 5 mm incision was made at the umbilicus. Sujatha used to dissect down the fascia, grasped and elevated. A Veress needle was inserted in the abdomen and pneumoperitoneum was achieved. Under direct visualization of the laparoscope, a 5 mm trocar was then placed. Under direct visualization of the laparoscope, a 5 mm trocar was placed in the suprapubic region and a 12 mm trocar was placed in the left lower quadrant. The small bowel was then slightly moved away from the cecum, and the appendix was visualized. The tip of the appendix appeared to be slightly rigid and with some slight erythema. The base of the appendix appears normal and normal caliber in size. Due to the slight inflammation and rigidity at the tip of the appendix it was decided to remove the appendix. [place] was used to dissect around the base of the appendix which had an Endo NAZANIN 2.5 stapler fired across the base. An endo- Endo NAZANIN 2.0 reload was then fired across the mesoappendix. The appendix was then placed in an Endobag and removed through the 12 mm trocar site. The patient is also noted to have a normal appearing uterus. There was a large cyst on the right ovary that was able to be visualized. Another 5 mm trocar was placed in the right lower quadrant. Dr. Buckley then performed a right ovarian cystectomy. The left ovary was then elevated out of the pelvis which also demonstrated another large cyst on the left ovary which Dr. Buckley performed cystectomy as well. At this time the abdomen was irrigated and suctioned. Hemostasis had been achieved. The 12 mm fascial defect was then closed using 0 Vicryl with Endo Close. The abdomen was then desufflated. The trocars were removed. A total of 20 mL of 0.5% Marcaine and 1% lidocaine at 50:50 ratio was used to anesthetize the trocar sites. The skin was then closed using 4-0 Vicryl in a subcuticular fashion. The area was then washed and dried. Mastisol and Steri-Strips Atripla and sterile bandages were applied. The patient tolerated procedure well without any complications. She was taken to recovery room in stable condition. Job ID: [id number] Dictated Date: 05/26/2016 16:49:17 Endorsement Clerk Date: 05/28/2016 07:52:02 / sho
--- OUTSIDE RECORDS SUMMARY | 2016-05-28 13:58 | XMS REPORT | Continuity of Care Document ---
Author Author [facility] Organization [facility] Address [address] [place] [address] Phone Unavailable Care Team Providers Care Quality Assurance Supervisor Final Name Role Phone ELINA GREENFIELD JR, MD PCP Insurance Providers Payer Name Policy Number Subscriber Name Relationship [facility] [id number] Laure Steiner 19 [facility] [id number] Laure Steiner 18 Self / Same As Patient Advance Directives Directive Response Recorded Date/Time Living Will No 03/27/13 4:41pm Advance Directives No 09/19/14 7:43pm Durable POA for HC No 09/19/14 7:43pm Power of Distributed Energy Systems Consultant No 09/19/14 7:43pm Organ Donor No 09/19/14 [...] Encounters Encounter Location Date/Time Departed Emergency Room [facility] 09/19/14 7:43pm
--- OUTSIDE RECORDS SUMMARY | 2016-05-28 13:58 | XMS REPORT | Continuity of Care Document ---
Author Author [facility] Organization [facility] Address [address] [place] [address] Phone Unavailable Care Team Providers Care Shower Enclosure Installer Name Role Phone ELINA GREENFIELD JR, MD PCP Insurance Providers Payer Name Policy Number Subscriber Name Relationship [facility] [id number] Laure Steiner 19 [facility] [id number] Laure Steiner 18 Self / Same As Patient Advance Directives Directive Response Recorded Date/Time Living Will No 03/27/13 4:41pm Advance Directives No 09/19/14 7:43pm Durable POA for HC No 09/19/14 7:43pm Power of Carpet Mechanic No 09/19/14 7:43pm Organ Donor No 09/19/14 [...] Encounters Encounter Location Date/Time Departed Emergency Room [facility] 09/19/14 7:43pm
== END 2016-05-26 17:50 | disposition home or self-care (01) ==
LOC: ER 02:59 → 4TH 05:05 → UNDOADMOB 05:05 → ER 05:59 → WS 06:00 → SDC 06:00 → 4TH 09:56 → WS 09:56 → SDC 17:50 → UNDODISOB 17:50
PROVIDERS: ATTEND Surgery
DX: K37 Unspecified appendicitis (principal); N83.201 Unspecified ovarian cyst, right side; N83.202 Unspecified ovarian cyst, left side
CPT/HCPCS: 36415; 74177; 76830; 80053; 81000; 84703; 85025; 87081; 88304; 88307; 94664; 96361; 96365; 96375

== ENCOUNTER 2017-05-17 02:18 | Emergency (ER) | payer MEDICAID ==
[~2017-05-17] VITALS: Ht 152.4 cm; Wt 59.0 kg
[~2017-05-17 02:18] MED LIST: ACHD5005 PO; DOCU-143 PO; NORG1TAB6 PO
--- OUTSIDE RECORDS SUMMARY | 2017-05-17 02:24 | XMS REPORT | Continuity of Care Document ---
Author Author [facility] Organization [facility] Address [address] [place] [address] Phone Unavailable Care Team Providers Care Fur Operator Name Role Phone ELINA GREENFIELD JR, MD PCP Insurance Providers Payer Name Policy Number Subscriber Name Relationship [facility] Comm Plan [id number] Laure Steiner 18 Self / Same As Patient Advance Directives Directive Response Recorded Date/Time Living Will No 03/27/13 4:41pm Advance Directives No 09/19/14 7:43pm Advance Directive on File No 07/05/15 6:49pm Durable POA for HC No 07/05/15 6:49pm Power of Design Chief No 07/05/15 6:49pm Organ Donor No 07/05/15 6:49pm Living Will No 07/05/15 6:49pm Chief Complaint and Reason for Visit Chief Complaint OB/Uterine Contactions Reason for Visit [id number] Problems Active Problems Medical Problem Onset Date Status Contusion Unknown Acute Intrauterine normal Unknown Acute UTI (urinary tract infection) in in third trimester Unknown Acute UTI (urinary tract infection) in in third trimester Unknown Acute Medications Current Home Medications Medication Dose Units Route Directions Days/Qty Instructions Start Date Nitrofurantoin Macrocrystal (Macrobid) 100 Mg 100 Mg Oral Twice A Day With Meals 20 Take until gone, even if you are feeling better. This is an antibiotic for bladder infection. Take w/ food to avoid stomach upset. 07/05/15 Social History Social History Problem Response Recorded Date/Time Alcohol Use none 07/05/2015 7:17pm Drug Use none 07/05/2015 7:17pm Smoking Status Never smoker 07/05/2015 6:50pm Smoked in the last 12 months? No 07/05/2015 6:50pm Do you dip or chew tobacco? No 07/05/2015 6:50pm Approx how many cigs per day? 0 07/05/2015 6:50pm Level of Dependence Low 07/05/2015 7:17pm Former smoker, last day smoked? 0 07/05/2015 6:50pm Query Response Start Date Stop Date Smoking Status Never smoker Hospital Discharge Instructions No hospital discharge instructions. Plan of Care Discharge Date 07/05/15 7:35pm Disposition 01 D/C HOME Condition at Discharge Improved Instructions/Education Provided (ED) Forms Provided ER Discharge Phone Call Check Prescriptions See Medication Section Referrals ELINA GREENFIELD JR, MD - Additional Instructions/Education Drink water every 20 minutes while awake -- - your urine should be either clear or very pale yellow. A culture has been obtained. This typically takes 3-4 days in order to obtain results. Occasionally a different antibiotic will be needed based on your results. You may obtain these results through the [facility] Patient Portal, or by contacting your provider's office. Take all of your antibiotics until gone, even if you are feeling better. Reference Links Adult immunizations Functional Status Query Response Date Recorded Activities of Daily Living Performs w/o Assistance July 05, 2015 6:51pm Cognitive Function Intact July 05, 2015 6:51pm Allergies, Adverse Reactions, Alerts No known allergies. Immunizations No immunization records. Vital Signs Acute Vital Signs Vital Response Date/Time Temperature (Fahrenheit) 97.8 degrees F (97.6 - 99.5) 07/05/2015 6:35pm Temperature (Calculated Celsius) 36.33995 degrees C (36.4 - 37.5) 07/05/2015 6:35pm Temperature Source Oral 07/05/2015 6:35pm Pulse Pulse Ox Pulse Rate (adult) 80 beats per minute (60 - 90) 07/05/2015 6:35pm Pulse Location Modifier Right 07/05/2015 6:35pm Oxygen Saturation Respiratory Rate 18 breaths per minute (12 - 24) 07/05/2015 6:35pm O2 Sat by Pulse Oximetry 100 % (90 - 100) 07/05/2015 6:35pm Blood Pressure 122/74 mm Hg 07/05/2015 6:35pm Blood Pressure Mean 90 mm Hg 07/05/2015 6:35pm Height 5 ft 0 in Weight 141 lb Body Mass Index 27.5 kg/m^2 Results Laboratory Results Test Name Result Units Flags Reference Collection Date/Time Result Date/ Time Comments Volume Urine Centrifuged 12 ML ml 07/05/2015 6:54pm 07/05/2015 7: 15pm Test based ON 12 ml volume. Urine Color STRAW STRAW 07/05/2015 6:54pm 07/05/2015 7:15pm Urine Clarity HAZY A CLEAR 07/05/2015 6:54pm 07/05/2015 7:15pm Urine Specific [place] 1.020 1.010-1.020 07/05/2015 6:54pm 2015 7:15pm Urine pH 6.0 5.0-6.0 07/05/2015 6:54pm 07/05/2015 7:15pm Urine Leukocyte Esterase 2+ A NEGATIVE 07/05/2015 6:54pm 07/05/2015 7: 15pm Urine Nitrite NEGATIVE NEGATIVE 07/05/2015 6:54pm 07/05/2015 7:15pm Urine Protein NEGATIVE NEGATIVE 07/05/2015 6:54pm 07/05/2015 7:15pm Urine Glucose (UA) NEGATIVE NEGATIVE 07/05/2015 6:54pm 07/05/2015 7: 15pm Urine Ketones NEGATIVE NEGATIVE 07/05/2015 6:54pm 07/05/2015 7:15pm Urine Urobilinogen 0.2 0.2-1.0 07/05/2015 6:54pm 07/05/2015 7:15pm Urine Bilirubin NEGATIVE NEGATIVE 07/05/2015 6:54pm 07/05/2015 7: 15pm Urine Occult Blood TRACE A NEGATIVE 07/05/2015 6:54pm 07/05/2015 7: 15pm Urine WBC 11-25 #/HPF A OCCASIONAL 07/05/2015 6:54pm 07/05/2015 7:15pm Urine RBC NONE #/HPF OCCASIONAL 07/05/2015 6:54pm 07/05/2015 7:15pm Urine Epithelial Cells MANY #/HPF A OCCASIONAL 07/05/2015 6:54pm 2015 7:15pm Urine Other Casts NONE #/LPF NEGATIVE 07/05/2015 6:54pm 07/05/2015 7: 15pm Urine Bacteria NONE NONE 07/05/2015 6:54pm 07/05/2015 7:15pm Urine Other Crystals NONE NONE 07/05/2015 6:54pm 07/05/2015 7:15pm Urine Mucus NONE NONE 07/05/2015 6:54pm 07/05/2015 7:15pm Urine Culture Indicated YES A NO 07/05/2015 6:54pm 07/05/2015 7:15pm Procedures No known history of procedures. Encounters Encounter Location Arrival/Admit Date Discharge/Depart Date Attending Provider Departed Emergency Room [facility] 07/05/15 6:35pm 07/05/15 7: 35pm DINAH SUGGS APRN Recent Diagnosis
--- OUTSIDE RECORDS SUMMARY | 2017-05-17 02:24 | XMS REPORT | Continuity of Care Document ---
Author Author [facility] Organization [facility] Address [facility] [address] [place] [address] Phone Unavailable Care Team Providers Care Business Services Administrator Name Role Phone Jan Story M.D. PCP Insurance Providers Payer Name Policy Number Subscriber Name Relationship [facility] [id number] Laure Kidd 18 Self / Same As Patient Advance Directives Directive Response Recorded Date/Time Advance Directives No 09/03/15 3:23am Living Will No 09/03/15 3:23am Health Care Proxy No 10/03/15 5:31pm Power of Vice Provost for Health Care No 09/03/15 3:23am Organ, Tissue, or Eye Donor No 09/03/15 3:23am Do you have a signed organ donor card? No 06/18/15 11:06pm Chief Complaint and Reason for Visit Chief Complaint FEMALE UROGENITAL PROBLEMS Reason for Visit [id number] Problems Active Problems Medical Problem Onset Date Status Vulvar edema Unknown Acute Medications Current Home Medications Medication Dose Units Route Directions Days/Qty Instructions Start Date Albuterol (Ventolin 17GM Hfa Inhaler*) 1 Puff 2 Puff Inhalation As Needed as needed for Ad INHALE 2 PUFFS 06/18/15 Prenat Multivit/[place]/Iron/Folic Ac 1 Each 1 Udtab Oral Daily Past Home Medications Medication Directions Ordered Status Prenat Multivit/Fire Alarm Technician/Iron/Folic Ac 1 Each Tablet, 1 Udtab Oral 06/18/15 Discontinued Social History Social History Problem Response Recorded Date/Time Smoking Status Never smoker 09/03/2015 3:23am Alcohol Use none 10/03/2015 7:11pm Drug Use none 10/03/2015 7:11pm Query Response Start Date Stop Date Smoking Status Never smoker Hospital Discharge Instructions No hospital discharge instructions. Plan of Care Discharge Date 10/03/15 7:20pm Condition at Discharge Stable Prescriptions See Medication Section Referrals Jan Story M.D. - Additional Instructions/Education You have been seen today for edema in your vulva. After this was inspected by your physician, this appears to be a normal finding after your recent vaginal delivery. The doctor feels at this time that it is safe for you to be discharged. You must monitor closely for any concerning symptoms including but not limited to fever chills vulvar pain dysuria vaginal discharge or abnormal bleeding difficulty with bowel movements Please return to the ER if you develop any concerning symptoms or your condition worsens in any way. Otherwise, keep your follow up appointment with your OBGYN as scheduled. Functional Status Query Response Date Recorded [place] Coma Scale Total 15 October 03, 2015 6:02pm Patient Behavior Cooperative Appropriate October 03, 2015 6:02pm Allergies, Adverse Reactions, Alerts No known allergies. Immunizations Name Given Type Hx Diphtheria, Pertussis, Tetanus Vaccination Up To Date Historical Hx Influenza Vaccination Y JAN 2015 Historical Hx Pneumococcal Vaccination No Historical Vital Signs Acute Vital Signs Vital Response Date/Time Temperature (Fahrenheit) 97.4 degrees F (97.6 - 99.5) 10/03/2015 7:20pm Temperature Source Temporal Artery 10/03/2015 7:20pm Pulse Rate (adult) 85 bpm (60 - 90) 10/03/2015 7:20pm Respiratory Rate 18 bpm (12 - 24) 10/03/2015 7:20pm Blood Pressure 104/70 mm Hg 10/03/2015 7:20pm O2 Sat by Pulse Oximetry 99 % (90 - 100) 10/03/2015 7:20pm Oxygen Delivery Method 10/03/2015 7:20pm Pain Intensity 6 09/04/2015 3:30am Pain Location Body Site Modifier 09/05/2015 12:00am Pain Description 09/05/2015 12:00am Height 5 ft 0 in Weight 125 lb Body Mass Index 24.0 kg/m^2 Results Pending Laboratory Results Test Name Collection Date/Time Procedures Procedure Status Date Provider(s) DELIVERY OF PRODUCTS OF CONCEPTION, EXTERNAL APPROACH Completed 09/03/15 Jan Story M.D. Encounters Encounter Location Arrival/Admit Date Discharge/Depart Date Attending Provider Departed Emergency Room [facility] 10/03/15 5:33pm 10/03/15 7:20pm DIYA BUENO MD Discharged Inpatient [facility] 09/03/15 2:01am 09/04/15 11:59pm Jan Story M.D. Registered Clinic [facility] 08/31/15 1:47am Jan Story M.D. Registered Clinic [facility] 08/26/15 12:01pm Jan Story M.D. Registered Referred [facility] 08/19/15 2:17pm Jan Story M.D. Registered Clinic [facility] 07/28/15 1:49am Jan Story M.D. Registered Referred [facility] 07/22/15 11:16am JORDAN BARRY APRN Recent Diagnosis
--- OUTSIDE RECORDS SUMMARY | 2017-05-17 02:24 | XMS REPORT | Continuity of Care Document ---
Author Author [facility] Organization [facility] Address [address] [place] [address] Phone Unavailable Care Team Providers Care Lead Producer Name Role Phone ELINA GREENFIELD JR, MD PCP Insurance Providers Payer Name Policy Number Subscriber Name Relationship [facility] Comm Plan [id number] Laure Steiner 18 Self / Same As Patient Advance Directives Directive Response Recorded Date/Time Living Will No 03/27/13 4:41pm Advance Directives No 09/19/14 7:43pm Advance Directive on File No 08/03/15 11:23pm Durable POA for HC No 08/03/15 11:23pm Power of Breakdown Worker No 08/03/15 11:23pm Organ Donor No 08/03/15 11:23pm Living Will No 08/03/15 11:23pm Chief Complaint and Reason for Visit Chief Complaint Skin Rash/Abscess Reason for Visit [id number] Problems Active Problems Medical Problem Onset Date Status Abscess of bursa, right elbow Unknown Acute Contusion Unknown Acute Intrauterine normal Unknown Acute UTI (urinary tract infection) in in third trimester Unknown Acute UTI (urinary tract infection) in in third trimester Unknown Acute Medications Current Home Medications Medication Dose Units Route Directions Days/Qty Instructions Start Date Amoxicillin/Potassium Clav 500-125 1 Each Oral Twice A Day 20 08/03/15 [Hibiclens Wash] 0.5 Oz External Four Times A Day 120 08/03/15 [ Vit] for 08/03/15 Past Home Medications Medication Directions Ordered Status Nitrofurantoin Macrocrystal 100 Mg Capsule, 100 Mg Oral Twice A Day With Meals 07/05/15 Discontinued Social History Social History Problem Response Recorded Date/Time Smoking Status Never smoker 08/03/2015 11:23pm Smoked in the last 12 months? No 08/03/2015 11:23pm Do you dip or chew tobacco? No 08/03/2015 11:23pm Approx how many cigs per day? 0 08/03/2015 11:23pm Level of Dependence Low 08/03/2015 11:23pm Former smoker, last day smoked? na 08/03/2015 11:23pm Query Response Start Date Stop Date Smoking Status Never smoker Hospital Discharge Instructions No hospital discharge instructions. Plan of Care Discharge Date 08/03/15 10:20pm Disposition 01 D/C HOME Condition at Discharge Improved Instructions/Education Provided Abscess (ED) Forms Provided ER Discharge Phone Call Check Prescriptions See Medication Section Referrals ELINA GREENFIELD JR, MD - Additional Instructions/Education Apply warm/moist compresses to area 4-6 times a day to encourage circulation and drainage. Avoid use of topical creams or ointments for healing, as it is important the the wound remain able to drain. Avoid squeezing or pinching. Take antibiotics as prescribed until gone. Follow up if symptoms worsen or fail to resolve. Reference Links Immunizations Functional Status Query Response Date Recorded Activities of Daily Living Performs w/o Assistance July 05, 2015 6:51pm Allergies, Adverse Reactions, Alerts No known allergies. Immunizations No immunization records. Vital Signs Acute Vital Signs Vital Response Date/Time Temperature (Fahrenheit) 98.3 degrees F (97.6 - 99.5) 08/03/2015 11:23pm Temperature (Calculated Celsius) 36.20636 degrees C (36.4 - 37.5) 08/03/2015 11:23pm Temperature Source Temporal Artery Scan 08/03/2015 11:23pm Pulse Pulse Ox Pulse Rate (adult) 69 beats per minute (60 - 90) 08/03/2015 11:23pm Oxygen Saturation Respiratory Rate 18 breaths per minute (12 - 24) 08/03/2015 11:23pm O2 Sat by Pulse Oximetry 96 % (90 - 100) 08/03/2015 11:23pm Blood Pressure 128/67 mm Hg 08/03/2015 11:23pm Blood Pressure Mean 87 mm Hg 08/03/2015 11:23pm Height 5 ft 0 in Weight 144 lb Body Mass Index 28.1 kg/m^2 Results No known relevant diagnostic tests, laboratory data and/or discharge summary. Procedures No known history of procedures. Encounters Encounter Location Arrival/Admit Date Discharge/Depart Date Attending Provider Departed Emergency Room [facility] 08/03/15 9:45pm 08/03/15 10: 20pm DINAH SUGGS APRN Recent Diagnosis
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
--- OUTSIDE RECORDS SUMMARY | 2017-05-17 02:24 | XMS REPORT | Continuity of Care Document ---
Author Author [facility] Organization [facility] Address [address] [place] [address] Phone Unavailable Care Team Providers Care Coding And Reimbursement Specialist Name Role Phone ELINA GREENFIELD JR, MD PCP Insurance Providers Payer Name Policy Number Subscriber Name Relationship [facility] [id number] Laure Steiner 19 [facility] [id number] Laure Steiner 18 Self / Same As Patient Advance Directives Directive Response Recorded Date/Time Living Will No 03/27/13 4:41pm Advance Directives No 09/19/14 7:43pm Durable POA for HC No 09/19/14 7:43pm Power of Treating Plant Supervisor No 09/19/14 7:43pm Organ Donor No [...] Encounters Encounter Location Date/Time Departed Emergency Room [facility] 09/19/14 7:43pm
--- OUTSIDE RECORDS SUMMARY | 2017-05-17 02:25 | XMS REPORT | Continuity of Care Document ---
Author Author [facility] Organization [facility] Address Unknown Phone Unavailable Allergies Active Description Code Type Severity Reaction Onset Reported/Identified Relationship to Patient Clinical Status Yes No Known Medication Allergies Drug N/A N/A Yes No Known Medication Allergies Drug N/A N/A Medications There is no data. Problems Date Dx Coded Attending Type Code Diagnosis Diagnosed By 05/20/2014 SNEHA SHAHID Final 620.2 Other and Unspecified Ovarian Cyst 05/20/2014 SNEHA SHAHID Final 788.1 Dysuria 05/20/2014 SNEHA SHAHID Final 789.04 Abdominal Pain, Left Lower Quadrant Procedures There is no data. Results There is no data. Encounters ACCT No. Visit Date/Time Discharge Status Pt. Type Provider Facility Loc./Unit Complaint [id number] 05/19/2014 22:43:00 05/20/2014 03:05:00 DIS Emergency [facility] ER Abdominal Pain [id number] 05/31/2014 00:00:00 05/31/2014 23:59:59 [facility] Outpatient Scanned Documents [id number] 05/29/2014 10:14:16 05/29/2014 23:59:59 [facility] Outpatient Alban Cavanaugh [employer] OBG f/u [facility] ED 05/20/14
[2017-05-17] MEDS ORDERED: NORG1TAB14 (02:31)
[2017-05-17 03:02] LABS: BASOPHILS # (AUTO) 0.1 10^3/uL (0.0-0.1); BASOPHILS % (AUTO) 1 % (0-10); EOSINOPHILS # (AUTO) 0.5 10^3/uL (0.0-0.3); EOSINOPHILS % (AUTO) 7 % (0-10); HEMATOCRIT 42 % (35-52); HEMOGLOBIN 14.4 G/DL (11.5-16.0); LYMPHOCYTES # (AUTO) 2.8 X 10^3 (1.0-4.0); LYMPHOCYTES % (AUTO) 36 % (12-44); MEAN CORPUSCULAR HEMOGLOBIN 31 PG (25-34); MEAN CORPUSCULAR HGB CONC 35 G/DL (32-36); MEAN CORPUSCULAR VOLUME 88 FL (80-99); MEAN PLATELET VOLUME 9.4 FL (7.4-10.4); MONOCYTES % (AUTO) 12 % (0-12); NEUTROPHILS # (AUTO) 3.5 X 10^3 (1.8-7.8); NEUTROPHILS % (AUTO) 44 % (42-75); PLATELET COUNT 318 10^3/uL (130-400); RED BLOOD COUNT 4.72 10^6/uL (4.35-5.85); RED CELL DISTRIBUTION WIDTH 12.3 % (10.0-14.5); WHITE BLOOD COUNT 7.9 10^3/uL (4.3-11.0)
[2017-05-17 03:06] LABS: AMPHETAMINE SCREEN, URINE NEGATIVE (NEGATIVE); BARBITURATE SCREEN URINE NEGATIVE (NEGATIVE); BENZODIAZEPINES SCREEN URINE NEGATIVE (NEGATIVE); CANNABINOID SCREEN, URINE NEGATIVE (NEGATIVE); COCAINE SCREEN URINE NEGATIVE (NEGATIVE); METHADONE STAT NEGATIVE (NEGATIVE); METHAMPHETAMINE SCREEN URINE S NEGATIVE (NEGATIVE); OPIATE SCREEN URINE NEGATIVE (NEGATIVE); OXYCODONE STAT NEGATIVE (NEGATIVE); PROPOXYPHENE STAT NEGATIVE (NEGATIVE); TRICYCLIC ANTIDEPRESSANTS SCRE NEGATIVE (NEGATIVE)
[2017-05-17 03:23] LABS: ALANINE AMINOTRANSFERASE 18 U/L (0-55); ALBUMIN 3.9 GM/DL (3.2-4.5); ALKALINE PHOSPHATASE 69 U/L (40-136); BILIRUBIN,TOTAL 0.4 MG/DL (0.1-1.0); BUN/CREATININE RATIO 18; CARBON DIOXIDE 25 MMOL/L (21-32); CHLORIDE 106 MMOL/L (98-107); CREATININE SERUM 0.95 MG/DL (0.60-1.30); GFR ESTIMATED > 60; GLUCOSE 97 MG/DL (70-105); POTASSIUM 3.5 MMOL/L (3.6-5.0); SODIUM 142 MMOL/L (135-145); TOTAL PROTEIN 7.4 GM/DL (6.4-8.2)
[2017-05-17 03:30] VITALS: BP 121/89
[2017-05-17 03:43] LABS: TSH (THYROID ANALYZER) 6.12 UIU/ML (0.35-4.94)
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
[2017-05-17] MEDS ORDERED: AMOX-358 PO (04:17)
[2017-05-17] MEDS ORDERED: FLUT9.9S NS (04:17)
[2017-05-17] MEDS ORDERED: GUAI1TBM19 PO (04:17)
[2017-05-17 04:18] VITALS: BP 115/67
[2017-05-17 04:19] LABS: FREE T4 (FREE THYROXINE) 1.24 NG/DL (0.70-1.48)
[2017-05-17 04:27] VITALS: BP 115/67
--- NOTE | 2017-05-17 08:11 | Diagnostic Imaging Report ---
INDICATION: Heart palpitations. No prior examinations are available for comparison. FINDINGS: The heart size, mediastinal configuration, and pulmonary vascularity are within normal limits. There is no pleural effusion, pneumothorax, or pneumonia. The osseous structures are unremarkable. IMPRESSION: No acute cardiopulmonary abnormality. Dictated by: Dictated on workstation # [id number]
== END 2017-05-17 04:27 | disposition home or self-care (01) ==
LOC: EDUNIT# 02:18 → ER 02:21
DX: F51.5 Nightmare disorder (principal); R00.2 Palpitations; J06.9 Acute upper respiratory infection, unspecified; H65.93 Unspecified nonsuppurative otitis media, bilateral; R94.6 Abnormal results of thyroid function studies; J45.909 Unspecified asthma, uncomplicated; F41.9 Anxiety disorder, unspecified; Z90.49 Acquired absence of other specified parts of digestive tract; Z87.448 Personal history of other diseases of urinary system
CPT/HCPCS: 36415; 71045; 80053; 80306; 80320; 83735; 84439; 84443; 84484; 84703; 85025; 87804; 93005; 93041

== ENCOUNTER 2017-08-16 11:08 | Emergency (ER) | payer MEDICAID ==
[~2017-08-16] VITALS: Ht 152.4 cm; Wt 59.0 kg
[~2017-08-16 11:08] MED LIST changes: +AMOX-358 PO; +FLUT9.9S NS; +GUAI1TBM19 PO; +NORG1TAB14
[2017-08-16] MEDS ORDERED: TR1C15 (11:25)
[2017-08-16] MEDS ORDERED: NORE1PAT7 (11:25)
--- NOTE | 2017-08-16 11:44 | ED GU-Female ---
General Chief Complaint: Abdominal/GI Problems Stated Complaint: ABDOMINAL PAIN Nursing Triage Note: ARRIVED VIA WC TO ROOM 08. COMPLAINS OF ABD CRAMPING STARTING APPX 30MINS AGO. STATES SHE THINKS ITS HER OVARIAN CYST AND THAT SHE CHANGED CONTROL 2 WEEKS AGO. STATES SHE TOOK A CYCLOBENZAPRINE BEFORE COMING Nursing Sepsis Screen: No Definite Risk Source: patient, spouse Exam Limitations: no limitations History of Present Illness Date Seen by Provider: August 16, 2017 Time Seen by Provider: 11:44 Initial Comments 22 yo female patient presents to the ED via POV with c/o pelvic pain beginning 30 minutes [employer]. Patient tried using flexeril. initially did not feel like the flexeril was helping, but now thinks the pain is a little better. Patient does have a h/o ovarian cysts. Patient reports having a pelvic exam, pelvic cultures , and a pap 2 wks ago. She was also changed from BCP's to a patch to better regulate the ovarian cysts. LMP approx 1.5-2 wks ago. Timing/Duration: just prior to arrival, other (improved) Severity/Quality: cramping Location: suprapubic Radiation: none Activities at Onset: none Prior Genitourinary Problems: similar symptoms Sexual [place] History: less than 2 months ago, single partner Allergies and Home Medications Allergies Coded Allergies: No Known Drug Allergies (Unverified , 05/26/16) Home Medications Hydrocodone Bit/Acetaminophen 1 Tab Tab, 1 TAB PO Q4H PRN for pain Prescribed by: LUCY CHACON on 08/16/171426 Naproxen 500 Mg Tablet, 500 MG PO BID PRN for pain Prescribed by: LUCY CHACON on 08/16/17 142 Ondansetron 8 Mg Tab.rapdis, 8 MG PO Q6H PRN for NAUSEA/VOMITING-1ST LINE Prescribed by: LUCY CHACON on 08/16/17 142 Patient Home Medication List Home Medication List Reviewed: Yes Review of Systems Constitutional: No chills, No diaphoresis, No dizziness, No fever, No malaise EENTM: no symptoms reported Respiratory: no symptoms reported Cardiovascular: no symptoms reported Gastrointestinal: see HPI, abdominal pain (pelvic pain); No constipation, No diarrhea, No loss of appetite, No melena, No nausea, No vomiting Genitourinary: see HPI; denies burning, denies discharge, denies dysuria, denies frequency, denies flank pain, denies hematuria; pain : No Musculoskeletal: no symptoms reported Skin: no symptoms reported Psychiatric/Neurological: No Symptoms Reported All Other Systemes Reviewed Negative Unless Noted: Yes (Negative excepted noted.) Past Mradwar-Nmelez-Ncgaht Hx Patient Social History Alcohol Use: Denies Use Recreational Drug Use: No Smoking Status: Never a Smoker 2nd Hand Smoke Exposure: No Recent Foreign Travel: No Contact w/Someone Who Travel: No Recent Infectious Disease Expo: No Recent Hopitalizations: No Immunizations Up To Date Tetanus Booster (TDap): Unknown Date of Influenza Vaccine: Jan 17, 2016 Seasonal Allergies Seasonal Allergies: No Past Medical History Surgeries: Yes (BILATERAL OVARIAN CYSTS REMOVED WITH APPY 05/2016) Appendectomy Respiratory: Yes Asthma Cardiac: Yes (Pulmonary Valve Prolapse) Heart Murmur, Valvular Heart Disease Neurological: No : No Hx : 1 Hx Para: 1 Hx Total # of Abortions (Sp): 0 Reproductive Disorders: No Female Reproductive Disorders: Ovarian Cyst Sexually Transmitted Disease: No HIV/AIDS: Yes Genitourinary: Yes Kidney Infection, Bladder Infection Gastrointestinal: No Musculoskeletal: No Endocrine: No HEENT: No Cancer: No Psychosocial: Yes Anxiety Integumentary: No Blood Disorders: No Adverse Reaction/Blood Tranf: No Family Medical History Reviewed Nursing Family Hx No Pertinent Family Hx Physical Exam Vital Signs Vital Signs - First Documented 08/16/17 11:10 Temp 98.0 Pulse 77 Resp 18 B/P (MAP) 136/88 (104) Pulse Ox 96 O2 Delivery Room Air Capillary Refill : Less Than 3 Seconds General Appearance: WD/WN, no apparent distress HEENT: PERRL/EOMI, pharynx normal Neck: supple, normal inspection Cardiovascular: normal peripheral pulses, regular rate, rhythm, no murmur Respiratory: lungs clear, normal breath sounds, no respiratory distress, no accessory muscle use Gastrointestinal: normal bowel sounds, soft, no organomegaly; No distended; guarding (mild suprapubic guarding); No rebound; tenderness (suprapubic tenderness); No mass Back: normal inspection, no CVA tenderness Extremities: no pedal edema, normal capillary refill Neurologic/Psychiatric: alert, normal mood/affect, oriented x 3 Skin: normal color, warm/dry Progress/Results/Core Measures Suspected Sepsis Recent Fever Within 48 Hours: No Infection Criteria Present: None New/Unexplained Altered Menta: No Sepsis Screen: No Definite Risk SIRS Temperature:98.0 Pulse: 77 Respiratory Rate: 18 Laboratory Tests 08/16/17 11:45: White Blood Count 10.0 Blood Pressure 136 /88 Mean: 104 Laboratory Tests 08/16/17 11:45: Creatinine 0.89, Platelet Count 263, Total Bilirubin 1.0 Results/Orders Lab Results Laboratory Tests Test 08/16/17 11:45 08/16/17 11:55 Range/Units White Blood Count 10.0 4.3-11.0 10^3/uL Red Blood Count 4.97 4.35-5.85 10^6/uL Hemoglobin 15.1 11.5-16.0 G/DL Hematocrit 44 35-52 % Mean Corpuscular Volume 88 80-99 FL Mean Corpuscular Hemoglobin 30 25-34 PG Mean Corpuscular Hemoglobin Concent 35 32-36 G/DL Red Cell Distribution Width 12.3 10.0-14.5 % Platelet Count 263 130-400 10^3/uL Mean Platelet Volume 9.9 7.4-10.4 FL Neutrophils (%) (Auto) 62 42-75 % Lymphocytes (%) (Auto) 29 12-44 % Monocytes (%) (Auto) 6 0-12 % Eosinophils (%) (Auto) 3 0-10 % Basophils (%) (Auto) 0 0-10 % Neutrophils # (Auto) 6.1 1.8-7.8 X 10^3 Lymphocytes # (Auto) 2.9 1.0-4.0 X 10^3 Monocytes # (Auto) 0.6 0.0-1.0 X 10^3 Eosinophils # (Auto) 0.3 0.0-0.3 10^3/uL Basophils # (Auto) 0.0 0.0-0.1 10^3/uL Sodium Level 139 135-145 MMOL/L Potassium Level 3.9 3.6-5.0 MMOL/L Chloride Level 106 98-107 MMOL/L Carbon Dioxide Level 21 21-32 MMOL/L Anion Gap 12 5-14 MMOL/L Blood Urea Nitrogen 12 7-18 MG/DL Creatinine 0.89 0.60-1.30 MG/DL Estimat Glomerular Filtration Rate > 60 BUN/Creatinine Ratio 13 Glucose Level 86 70-105 MG/DL Calcium Level 9.6 8.5-10.1 MG/DL Total Bilirubin 1.0 0.1-1.0 MG/DL Aspartate Amino Transf (AST/SGOT) 20 5-34 U/L Alanine Aminotransferase (ALT/SGPT) 16 0-55 U/L Alkaline Phosphatase 50 40-136 U/L Total Protein 7.8 6.4-8.2 GM/DL Albumin 4.5 3.2-4.5 GM/DL Lipase 17 8-78 U/L Urine Color YELLOW Urine Clarity CLEAR Urine pH 6 5-9 Urine Specific [place] 1.015 L 1.016-1.022 Urine Protein NEGATIVE NEGATIVE Urine Glucose (UA) NEGATIVE NEGATIVE Urine Ketones NEGATIVE NEGATIVE Urine Nitrite NEGATIVE NEGATIVE Urine Bilirubin NEGATIVE NEGATIVE Urine Urobilinogen NORMAL NORMAL MG/DL Urine Leukocyte Esterase 1+ H NEGATIVE Urine RBC (Auto) NEGATIVE NEGATIVE Urine RBC NONE /HPF Urine WBC RARE /HPF Urine Squamous Epithelial Cells 2-5 /HPF Urine Crystals NONE /LPF Urine Bacteria TRACE /HPF Urine Casts NONE /LPF Urine Mucus NEGATIVE /LPF Urine Culture Indicated NO My Orders Orders - LUCY CHACON Cbc With Automated Diff (08/16/17 11:34) Comprehensive Metabolic Panel (08/16/17 11:34) Lipase (08/16/17 11:34) Ua Culture If Indicated (08/16/17 11:34) Saline Lock/Iv-Start (08/16/17 11:34) Urine Bedside (08/16/17 11:34) Ketorolac Injection (Toradol Injection) (08/16/17 12:18) Ns Iv 1000 Ml (Sodium Chloride 0.9%) (08/16/17 12:18) Us Non Ob Pelvis Comp/Transvag (08/16/17 ) Medications Given in ED Vital Signs/I&O 08/16/17 14:36 Pulse 76 Resp 18 B/P (MAP) 124/74 Pulse Ox 100 O2 Delivery Room Air Capillary Refill : Less Than 3 Seconds Blood Pressure Mean: 104 Diagnostic Imaging Diagonstic Imaging: Ultrasound Plain Films/CT/US/NM/MRI: pelvis Comments Date of Exam:08/16/17 US NON OB PELVIS COMP/TRANSVAG INDICATION: Pelvic pain. TECHNIQUE: Transabdominal and transvaginal pelvic sonography was performed. FINDINGS: The uterus measures 6.9 x 5.0 x 4.4 cm. Endometrium is 8 mm in thickness. No uterine mass is detected. The right ovary measures 5.2 x 4.1 x 3.4 cm and the left ovary measures 2.1 x 1.5 x 2.1 cm. There is a probable hemorrhagic cyst involving the right ovary measuring 3.6 x 3.0 x 3.5 cm. There is also a slightly complicated cyst in the right ovary measuring approximately 1.7 x 1.9 cm. There is some free fluid in the right adnexa. IMPRESSION: Right ovarian complicated cysts, largest approximately 3.6 cm in diameter with some adjacent free fluid. Findings are most consistent with hemorrhagic cysts with recent rupture. No other abnormality is seen. Dictated on workstation # [id number] Reviewed: Reviewed by Me (radiology report reviewed by me) Departure Communication (Admissions) Hasn't seen and evaluated. Plan for discharge to home with follow-up as an outpatient with her PCP for recheck and outpatient pelvic culture results. Patient call for an appointment time. Impression Primary Impression: Hemorrhagic cyst of ovary Disposition: , SELF-CARE Condition: Improved Departure-Patient Inst. Decision time for Depature: 14:25 Referrals: NO,LOCAL PHYSICIAN (PCP/Family) Primary Care Physician Patient Instructions: Ovarian Cyst (DC) Add. Discharge Instructions: All discharge instructions reviewed with patient and/or family. Voiced understanding. Medications as instructed. All up with your primary care provider for recheck as an outpatient. They may schedule a repeat outpatient ultrasound to further evaluate the ovarian cyst. Call for appointment time. Return to the emergency department for worsened symptoms, fever, vomiting, decreased urination, or any other concerns. Scripts Naproxen (Naprosyn) 500 Mg Tablet 500 MG PO BID PRN for pain, #20 TAB 0 Refills Prov: LUCY CHACON 08/16/17 Ondansetron (Ondansetron Odt) 8 Mg Tab.rapdis 8 MG PO Q6H PRN for NAUSEA/VOMITING-1ST LINE, #10 TAB 0 Refills Prov: LUCY CHACON 08/16/17 Hydrocodone Bit/Acetaminophen (Hydrocodone/Acetaminophen 5/325mg Tablet) 1 Tab Tab 1 TAB PO Q4H PRN for pain, #14 TAB 0 Refills Prov: LUCY CHACON 08/16/17 LUCY CHACON August 16, 2017 11:44
[2017-08-16 12:01] LABS: BASOPHILS % (AUTO) 0 % (0-10); EOSINOPHILS # (AUTO) 0.3 10^3/uL (0.0-0.3); EOSINOPHILS % (AUTO) 3 % (0-10); HEMATOCRIT 44 % (35-52); HEMOGLOBIN 15.1 G/DL (11.5-16.0); LYMPHOCYTES # (AUTO) 2.9 X 10^3 (1.0-4.0); LYMPHOCYTES % (AUTO) 29 % (12-44); MEAN CORPUSCULAR HEMOGLOBIN 30 PG (25-34); MEAN CORPUSCULAR HGB CONC 35 G/DL (32-36); MEAN CORPUSCULAR VOLUME 88 FL (80-99); MEAN PLATELET VOLUME 9.9 FL (7.4-10.4); MONOCYTES # (AUTO) 0.6 X 10^3 (0.0-1.0); MONOCYTES % (AUTO) 6 % (0-12); NEUTROPHILS # (AUTO) 6.1 X 10^3 (1.8-7.8); NEUTROPHILS % (AUTO) 62 % (42-75); PLATELET COUNT 263 10^3/uL (130-400); RED BLOOD COUNT 4.97 10^6/uL (4.35-5.85); RED CELL DISTRIBUTION WIDTH 12.3 % (10.0-14.5)
[2017-08-16 12:02] LABS: BILIRUBIN,URINE NEGATIVE (NEGATIVE); CLARITY,URINE CLEAR; COLOR,URINE YELLOW; GLUCOSE, URINE (UA) NEGATIVE (NEGATIVE); KETONES,URINE NEGATIVE (NEGATIVE); LEUKOCYTE ESTERASE ,URINE 1+ (NEGATIVE); NITRITE,URINE NEGATIVE (NEGATIVE); PH,URINE 6 (5-9); PROTEIN,URINE NEGATIVE (NEGATIVE); UROBILINOGEN,URINE NORMAL (NORMAL)
[2017-08-16 12:13] LABS: BACTERIA,URINE TRACE /HPF; WBC,URINE RARE /HPF
[2017-08-16] MEDS ORDERED: NS IV 1000 ML 1,000 ML IV ONE (12:18)
[2017-08-16] MEDS ORDERED: KETOROLAC 30 MG/ML VIAL IVP STA (12:18)
[2017-08-16 12:25] LABS: ALANINE AMINOTRANSFERASE 16 U/L (0-55); ALBUMIN 4.5 GM/DL (3.2-4.5); ALKALINE PHOSPHATASE 50 U/L (40-136); BUN/CREATININE RATIO 13; CALCIUM 9.6 MG/DL (8.5-10.1); CARBON DIOXIDE 21 MMOL/L (21-32); CHLORIDE 106 MMOL/L (98-107); CREATININE SERUM 0.89 MG/DL (0.60-1.30); GFR ESTIMATED > 60; GLUCOSE 86 MG/DL (70-105); LIPASE 17 U/L (8-78); POTASSIUM 3.9 MMOL/L (3.6-5.0); SODIUM 139 MMOL/L (135-145); TOTAL PROTEIN 7.8 GM/DL (6.4-8.2)
--- NOTE | 2017-08-16 14:12 | Diagnostic Imaging Report ---
INDICATION: Pelvic pain. TECHNIQUE: Transabdominal and transvaginal pelvic sonography was performed. FINDINGS: The uterus measures 6.9 x 5.0 x 4.4 cm. Endometrium is 8 mm in thickness. No uterine mass is detected. The right ovary measures 5.2 x 4.1 x 3.4 cm and the left ovary measures 2.1 x 1.5 x 2.1 cm. There is a probable hemorrhagic cyst involving the right ovary measuring 3.6 x 3.0 x 3.5 cm. There is also a slightly complicated cyst in the right ovary measuring approximately 1.7 x 1.9 cm. There is some free fluid in the right adnexa. IMPRESSION: Right ovarian complicated cysts, largest approximately 3.6 cm in diameter with some adjacent free fluid. Findings are most consistent with hemorrhagic cysts with recent rupture. No other abnormality is seen. Dictated by: Dictated on workstation # [id number]
[2017-08-16] MEDS ORDERED: ONDA8TAB13 PO (14:27)
[2017-08-16] MEDS ORDERED: NAPR-1071 PO (14:27)
[2017-08-16] MEDS ORDERED: ACHD5005 PO (14:27)
[2017-08-16 14:36] VITALS: BP 124/74
== END 2017-08-16 14:36 | disposition home or self-care (01) ==
LOC: EDUNIT# 11:08 → ER 11:12
DX: N83.201 Unspecified ovarian cyst, right side (principal); J45.909 Unspecified asthma, uncomplicated; F41.9 Anxiety disorder, unspecified; Z21 Asymptomatic human immunodeficiency virus [HIV] infection status; Z90.49 Acquired absence of other specified parts of digestive tract
CPT/HCPCS: 36415; 76830; 76856; 80053; 81000; 83690; 84703; 85025; 96361; 96374

== ENCOUNTER 2019-05-23 20:05 | Emergency (ER) | payer MEDICAID ==
[~2019-05-23] VITALS: Ht 152 cm; Wt 64.8 kg
[~2019-05-23 20:05] MED LIST changes: +HYOS0.1283 SL; +NAPR-1071 PO; +NORE1PAT7; +ONDA8TAB13 PO; +ONDA8TAB9 PO; +TR1C15
--- NOTE | 2019-05-23 22:09 | ED Cough/URI ---
General Chief Complaint: Cough/Cold/Flu Symptoms Stated Complaint: FEVER,CONGESTION Nursing Triage Note: cough/sneezing/ runny nose, sore throat, fever since 05/19/2019 Sepsis Screen: Possible Severe Sepsis Risk Source: patient Exam Limitations: no limitations History of Present Illness Date Seen by Provider: May 23, 2019 Time Seen by Provider: 22:07 Initial Comments To ER with cough runny nose sneeze sore throat fever since 05/19/19. Timing/Duration: just prior to arrival Severity/Quality: dry cough Associated Symptoms: cough, sore throat Allergies and Home Medications Allergies Coded Allergies: No Known Drug Allergies (Unverified , 05/26/16) Home Medications Hydrocodone Bit/Acetaminophen 1 Tab Tab, 1 TAB PO Q4H PRN for pain Prescribed by: LUCY CHACON on 08/16/17 142 Hyoscyamine Sulfate 0.125 Mg Tab.subl, 0.125 MG SL Q4H PRN for CRAMPS Prescribed by: YESICA MENDIOLA on 12/11/172207 Naproxen 500 Mg Tablet, 500 MG PO BID PRN for pain Prescribed by: LUCY CHACON on 08/16/17 142 Ondansetron 8 Mg Tab.rapdis, 8 MG PO Q6H PRN for NAUSEA/VOMITING-1ST LINE Prescribed by: LUCY CHACON on 08/16/17 142 Ondansetron 8 Mg Tab.rapdis, 8 MG PO Q6H PRN for NAUSEA/VOMITING-1ST LINE Prescribed by: YESICA MENDIOLA on 12/11/172207 Patient Home Medication List Home Medication List Reviewed: Yes Review of Systems Review of Systems Constitutional: see HPI EENTM: see HPI Respiratory: see HPI Cardiovascular: no symptoms reported Genitourinary: no symptoms reported Musculoskeletal: no symptoms reported Skin: no symptoms reported Psychiatric/Neurological: No Symptoms Reported Hematologic/Lymphatic: No Symptoms Reported Immunological/Allergic: no symptoms reported Past Ystubvm-Kvghid-Jsejmf Hx Patient Social History Alcohol Use: Denies Use Recreational Drug Use: No Smoking Status: Never a Smoker 2nd Hand Smoke Exposure: No Recent Foreign Travel: No Contact w/Someone Who Travel: No Recent Infectious Disease Expo: No Recent Hopitalizations: No Physical Abuse: No Sexual Abuse: No Mistreated: No Fear: No Immunizations Up To Date Tetanus Booster (TDap): Unknown Date of Influenza Vaccine: Jan 17, 2016 Seasonal Allergies Seasonal Allergies: No Past Medical History Surgeries: Yes (BILATERAL OVARIAN CYSTS REMOVED WITH APPY 05/2016) Appendectomy Respiratory: Yes Asthma Cardiac: Yes (Pulmonary Valve Prolapse) Heart Murmur, Valvular Heart Disease Neurological: No : No Reproductive Disorders: No Female Reproductive Disorders: Ovarian Cyst Sexually Transmitted Disease: No HIV/AIDS: Yes Genitourinary: Yes Kidney Infection, Bladder Infection Gastrointestinal: No Musculoskeletal: No Endocrine: No HEENT: No Cancer: No Psychosocial: Yes Anxiety Integumentary: No Blood Disorders: No Adverse Reaction/Blood Tranf: No Family Medical History No Pertinent Family Hx Physical Exam Vital Signs - First Documented 05/23/19 21:25 Temp 38.2 Pulse 102 Resp 18 B/P (MAP) 122/70 (87) Pulse Ox 100 O2 Delivery Room Air Capillary Refill : Less Than 3 Seconds Height: 5'2.00" Weight: 130lbs. 0oz. 58.263185pn; 28.00 BMI Method:Stated General Appearance: WD/WN, no apparent distress Eyes: Bilateral Eye Normal Inspection, Bilateral Eye PERRL, Bilateral Eye EOMI HEENT: PERRL/EOMI, normal ENT inspection Neck: non-tender, full range of motion Respiratory: no respiratory distress, no accessory muscle use Gastrointestinal: normal bowel sounds, non tender Extremities: normal range of motion, non-tender Neurologic/Psychiatric: alert, normal mood/affect, oriented x 3 Skin: normal color, warm/dry Progress/Results/Core Measures Suspected Sepsis Recent Fever Within 48 Hours: Yes Infection Criteria Present: Suspected New Infection New/Unexplained Altered Menta: No Sepsis Screen: Possible Severe Sepsis Risk SIRS Temperature: Pulse: 102 Respiratory Rate: 18 Blood Pressure 122 /70 Mean: 87 Results/Orders Lab Results Laboratory Tests Test 05/23/19 21:30 Range/Units Group A Streptococcus Screen NEGATIVE NEGATIVE Micro Results Microbiology 05/23/19 Influenza Types A,B Antigen (PIERRE) - Final, Complete My Orders Orders - YESICA MENDIOLA APRN Rapid Strep A Screen (05/23/19 20:14) Influenza A And B Antigens (05/23/19 20:14) Vital Signs/I&O 05/23/19 05/23/19 05/23/19 21:25 21:25 22:11 Temp 38.2 38.2 Pulse 102 102 Resp 18 18 B/P (MAP) 122/70 (87) 122/70 (87) Pulse Ox 100 100 O2 Delivery Room Air Room Air Room Air Capillary Refill : Less Than 3 Seconds Blood Pressure Mean: 87 Departure Impression Primary Impression: Influenza Disposition: 01 HOME, SELF-CARE Condition: Stable Departure-Patient Inst. Decision time for Depature: 22:20 Referrals: NO,LOCAL PHYSICIAN (PCP/Family) Primary Care Physician Patient Instructions: Flu Add. Discharge Instructions: 1. Return to ER for any concerns 2. Follow-up with your doctor next week 3. All discharge instructions reviewed with patient and/or family. Voiced understanding. Work/School Note: Work Release Form Date Seen in the Emergency Department: May 23, 2019 Return to Work: May 28, 2019 YESICA MENDIOLA APRN May 23, 2019 22:09
[2019-05-23 22:11] VITALS: BP 122/70
== END 2019-05-23 22:15 | disposition home or self-care (01) ==
LOC: EDUNIT# 20:05 → ER 20:06
DX: J11.1 Influenza due to unidentified influenza virus with other respiratory manifestations (principal)
CPT/HCPCS: 87430; 87804

== ENCOUNTER 2020-04-30 04:25 | Inpatient (IN) | payer MEDICAID ==
[2020-04-30] VITALS (47 sets, daily range): BP systolic 119–177; BP diastolic 49–96
[~2020-04-30] VITALS: Ht 60 cm; Wt 74.9 kg
--- NOTE | 2020-04-30 04:25 | NUR ---
ALVARO KIDD presented to unit via AMBULATORY from ED, accompanied by ADULT MALE, with c/o CONTRACTIONS. ALVARO KIDD weighed, gowned, voided, and to bed. EFHM and TOCO applied, VS taken. ALVARO KIDD oriented to bed controls, call light, TV, heat, and A/C controls. ABOVE AND FURTHER ASSESSMENTS PER THIS RN.
[2020-04-30 04:57] LABS: BILIRUBIN,URINE NEGATIVE (NEGATIVE); CLARITY,URINE SL CLOUDY; COLOR,URINE YELLOW; GLUCOSE, URINE (UA) NEGATIVE (NEGATIVE); KETONES,URINE 1+ (NEGATIVE); LEUKOCYTE ESTERASE ,URINE 1+ (NEGATIVE); NITRITE,URINE NEGATIVE (NEGATIVE); PROTEIN,URINE 1+ (NEGATIVE)
[2020-04-30] MEDS ORDERED: FAMO-144 PO (05:14)
[2020-04-30] MEDS ORDERED: PREN-8 PO (05:14)
[2020-04-30 05:20] LABS: BACTERIA,URINE LARGE /HPF; HYALINE CASTS, URINE 0-2 /LPF
[2020-04-30] MEDS ORDERED: MINERAL OIL CONCENTRATE 99.9% 15 ML UDC TOP PRN (06:45)
[2020-04-30] MEDS ORDERED: D5 LR IV SOLUTION 1,000 ML IV SCH (06:45)
[2020-04-30 07:02] LABS: BASOPHILS # (AUTO) 0.1 10^3/uL (0.0-0.1); BASOPHILS % (AUTO) 1 % (0-10); EOSINOPHILS # (AUTO) 0.2 10^3/uL (0.0-0.3); EOSINOPHILS % (AUTO) 1 % (0-10); HEMATOCRIT 33 % (35-52); HEMOGLOBIN 10.2 g/dL (11.5-16.0); LYMPHOCYTES # (AUTO) 3.2 10^3/uL (1.0-4.0); LYMPHOCYTES % (AUTO) 24 % (12-44); MEAN CORPUSCULAR HEMOGLOBIN 26 pg (25-34); MEAN CORPUSCULAR HGB CONC 31 g/dL (32-36); MEAN CORPUSCULAR VOLUME 84 fL (80-99); MEAN PLATELET VOLUME 10.6 fL (9.0-12.2); MONOCYTES # (AUTO) 0.9 10^3/uL (0.0-1.0); MONOCYTES % (AUTO) 7 % (0-12); NEUTROPHILS # (AUTO) 8.8 10^3/uL (1.8-7.8); NEUTROPHILS % (AUTO) 65 % (42-75); PLATELET COUNT 386 10^3/uL (130-400); WHITE BLOOD COUNT 13.5 10^3/uL (4.3-11.0)
[2020-04-30] MEDS ORDERED: fentaNYL 2 mcg/ml BUPIVA 0.125 100 ML ONE (07:30)
[2020-04-30] MEDS ORDERED: LIDOCAINE PF 2% 5 ML (XYLOCAINE) VIAL ONE (07:50)
[2020-04-30] MEDS ORDERED: fentaNYL INJECTION 100 MCG/2 ML AMP ONE (07:50)
[2020-04-30] MEDS ORDERED: BUPIVACAINE 0.25% 30 ML (SENSORCAINE) VIAL ONE (07:50)
[2020-04-30] MEDS ORDERED: diphenhydrAMINE 50 MG/ML INJ (BENADRYL) IV PRN (08:15)
[2020-04-30] MEDS ORDERED: ONDANSETRON 4 MG/2 ML (SDV) Z0FRAN IV PRN (08:15)
[2020-04-30] MEDS ORDERED: LACTATED RINGERS 1,000 ML IV SCH (08:15)
[2020-04-30] MEDS ORDERED: EPIDURAL (fentaNYL 2 MCG/ML BUPIVA 0.125%)100 ML BAG EPI PRN (08:15)
[2020-04-30] MEDS ORDERED: NALOXONE 0.4 MG/ML 1 ML (NARCAN) VIAL IV PRN (08:15)
[2020-04-30] MEDS ORDERED: fentaNYL 2 mcg/ml BUPIVA 0.125 100 ML EPI PRN (08:30)
[2020-04-30] MEDS ORDERED: OXYTOCIN PRE-MIX DRIP 500 ML IV ONE (10:10)
[2020-04-30] MEDS ORDERED: OXYTOCIN PRE-MIX DRIP 500 ML IV SCH ×2 (10:15→14:15)
[2020-04-30] MEDS ORDERED: LIDOCAINE/EPI 2% 1:200,00 (XYLOCAINE) 10 ML VIAL ONE (13:16)
[2020-04-30] MEDS ORDERED: MISOPROSTOL 200 MCG (CYTOTEC) TABLET ONE (13:43)
--- NOTE | 2020-04-30 13:44 | NUR ---
Spontaneous vaginal delivery of placenta with cord. 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 pitocin increased to 999ml/hr as ordered by dr flores. noted moderate to heavy bleeding. 1347 cytotec 800mcg placed rectally per dr flores at this time 1349 ffu/0 with mod rubra noted, no clots expressed. vss. pt assisted to sf position 1357 epidural infusion stopped and epidural catheter dc'd with tip intact. 1404 vss. ffu/0 with moderate rubra noted, no clots expressed. 1419 BP noted. pt denies c/o headache, blurry vision 1430 bp rechecked. ffu/0 with lt-mod rubra noted, no clots expressed. 1504 ffu/0 with moderate rubra noted, no clots expressed.
[2020-04-30] MEDS ORDERED: CATHETER FLUSH 10 ML SYR IV SCH ×2 (14:00→22:00)
--- NOTE | 2020-04-30 14:04 | History & Physical-OB ---
OB - Chief Complaint & HPI Date/Time Date of Admission: Date of Admission: Date seen by a Provider: Apr 30, 2020 Time Seen by a Provider: 13:30 Chief Complaint/History OB-Reason for Admission/Chief: Onset of Labor Hx : 2 Hx Para: 1 Expected Date of Delivery: May 04, 2020 Gestational Age in Weeks: 39 Gestational Age in Days: 3 History of Labs O+, Ab neg, Rub NON IMMUNE, GC/Chyl neg, HIV/HepB/RPR NR Normal GTT GBS Neg Allergies and Home Medications Allergies Coded Allergies: No Known Drug Allergies (Unverified , 05/26/16) Home Medications Famotidine 10 Mg Tablet, 10 MG PO BID, (Reported) Vit W-Ca,Fe,FA(<1 mg) 1 Each Tablet, 1 EACH PO DAILY, (Reported) Patient Home Medication List Home Medication List Reviewed: Yes OB - History Hx of Present Care: Yes Ultrasounds: Normal mid trimester US Obstetrical Complications: None Medical Complications: None Information Induced Hypertension: No Maternal Gestational Diabetes: No Hemorrhage: No Obstetrical History Hx : 2 Hx Para: 1 Hx # Term Pregnancies: 1 Number of Living Children: 1 Hx Total # of Abortions (Spona: 0 Delivery History Hx Blood Disorders: No Adverse Rxn to Tranfusion: No Patient Past Medical History None Social History/Family History Alcohol Use: Denies Use Recreational Drug Use: No Smoking Cessation: Never smoker 2nd Hand Smoke Exposure: No Immunizations Tetanus Booster (TDap): Less than 5yrs (04/02/2020) Date of Influenza Vaccine: Jan 28, 2021 Rubella: not immune RPR/VDRL: Negative GBS Status: Negative HBsAG: Negative OB - Admission Exam Physical Exam Vitals: Vital Signs 04/30/20 04/30/20 05:00 07:00 Temp 36.8 Pulse 82 Resp 18 B/P (MAP) 148/86 (106) Pulse Ox 97 O2 Delivery Room Air HEENT: NCAT Heart: Rhythm Normal Lungs: Clear Abdomen: Gravid Cervical Dilatation: 10cm Effacement: 100% Station: +2 Membranes: Ruptured Amniotic Fluid: Clear Decelerations: No Decelerations Short Term Variability: Present Contractions on Admission: < 5 Minutes Apart Intensity: Firm Labs Laboratory Tests Test 04/30/20 04:50 04/30/20 06:30 04/30/20 10:15 Range/Units Urine Color YELLOW Urine Clarity SL CLOUDY Urine pH 6.0 5-9 Urine Specific [place] 1.025 H 1.016-1.022 Urine Protein 1+ H NEGATIVE Urine Glucose (UA) NEGATIVE NEGATIVE Urine Ketones 1+ H NEGATIVE Urine Nitrite NEGATIVE NEGATIVE Urine Bilirubin NEGATIVE NEGATIVE Urine Urobilinogen 0.2 < = 1.0 MG/DL Urine Leukocyte Esterase 1+ H NEGATIVE Urine RBC (Auto) TRACE-I NEGATIVE Urine RBC NONE /HPF Urine WBC 2-5 /HPF Urine Squamous Epithelial Cells 2-5 /HPF Urine Crystals NONE /LPF Urine Bacteria LARGE H /HPF Urine Casts PRESENT /LPF Urine Hyaline Casts 0-2 H /LPF Urine Mucus SMALL H /LPF Urine Culture Indicated YES White Blood Count 13.5 H 4.3-11.0 10^3/uL Red Blood Count 3.92 3.80-5.11 10^6/uL Hemoglobin 10.2 L 11.5-16.0 g/dL Hematocrit 33 L 35-52 % Mean Corpuscular Volume 84 80-99 fL Mean Corpuscular Hemoglobin 26 25-34 pg Mean Corpuscular Hemoglobin Concent 31 L 32-36 g/dL Red Cell Distribution Width 14.1 10.0-14.5 % Platelet Count 386 130-400 10^3/uL Mean Platelet Volume 10.6 9.0-12.2 fL Immature Granulocyte % (Auto) 2 % Neutrophils (%) (Auto) 65 42-75 % Lymphocytes (%) (Auto) 24 12-44 % Monocytes (%) (Auto) 7 0-12 % Eosinophils (%) (Auto) 1 0-10 % Basophils (%) (Auto) 1 0-10 % Neutrophils # (Auto) 8.8 H 1.8-7.8 10^3/uL Lymphocytes # (Auto) 3.2 1.0-4.0 10^3/uL Monocytes # (Auto) 0.9 0.0-1.0 10^3/uL Eosinophils # (Auto) 0.2 0.0-0.3 10^3/uL Basophils # (Auto) 0.1 0.0-0.1 10^3/uL Immature Granulocyte # (Auto) 0.3 H 0.0-0.1 10^3/uL OB - Assessment/Plan/Diagnosis Assessment Assessment: active labor Admission Dx Term 39 week gestation Active Labor Admission Status: Inpatient Order (span 2 midnights) Reason for Inpatient Admission: Labor Plan Plan: Expectant Management Other Plan 25 yo F @ 39.3 wga, here for Active Labor Plan - AROM - Expectant management - GBS Neg Copy Copies To 1: MOIRA MACK MD, HOLLY R MD Apr 30, 2020 14:04
--- NOTE | 2020-04-30 14:09 | OB Labor & Delivery Record ---
Vag Delivery Note Vag Delivery Note Date of Delivery: 04/30/20 Preoperative Diagnosis: Laure Steiner is a (25 /Para 2 / 1, Gestational Age (wks)39.3 here for Active Labor Postoperative Diagnosis: Same Surgeon: MOIRA MACK Business Analysis Consultant: Nathan Barbosa [id number] Anesthesia: Epidural Delivery Type: @ 1340 Findings: Viable Female , apgars 8/9, weight 8#8, 3850 grams Lacerations: none Intact placenta with 3 vessel cord. No nuchal cord, body cord or shoulder dystocia Cytotec 800 mcg placed for hemorrhage prophylaxis Estimated Blood Loss: 200 ml Complications: None Condition: Stable Description of Procedure: The patient is a 25 year old female who presented in active labor. She was adm itted and informed consent was obtained. Her labor course was unremarkable She progressed to complete dilatation and began to push. She was then set up for delivery. The 's head was delivered atraumatically in the KAT position. The shoulders and remainder of the 's body were then delivered without difficulty. Upon delivery, the head was held below the level of the perineum and the mouth and nares were bulb suctioned. Double nuchal cord reduced at perinium. The cord was doubly clamped and cut after 2 min delay and the was placed on maternal abdomen and attended to by the pediatric staff. An intact placenta with 3-vessel cord delivered via [place] and there was found to be minimal bleeding.~ Vigorous fundal massage was performed and the fu ndus was found to be firm. IV oxytocin was given. Examination of the vagina and perineum revealed no lacerations that required repair. Following the repair, sponge, instrument and needle counts were correct. Mom and baby were both in stable condition in the labor suite. Vitals - Labs Vital Signs - I&O Vital Signs Date Time Temp Pulse Resp B/P (MAP) Pulse Ox O2 Delivery O2 Flow Rate FiO2 04/30/20 07:00 82 18 97 Room Air 04/30/20 06:00 83 18 98 Room Air 04/30/20 05:00 36.8 75 18 148/86 (106) Room Air 04/30/20 04:56 36.8 75 16 98 Room Air Labs Laboratory Tests 04/30/20 04:50: Urine Color YELLOW, Urine Clarity SL CLOUDY, Urine pH 6.0, Urine Specific [place] 1.025H, Urine Protein 1+H, Urine Glucose (UA) NEGATIVE, Urine Ketones 1+H, Urine Nitrite NEGATIVE, Urine Bilirubin NEGATIVE, Urine Urobilinogen 0.2, Urine Leukocyte Esterase 1+H, Urine RBC (Auto) TRACE-I, Urine RBC NONE, Urine WBC 2-5, Urine Squamous Epithelial Cells 2-5, Urine Crystals NONE, Urine Bacteria LARGEH, Urine Casts PRESENT, Urine Hyaline Casts 0-2H, Urine Mucus SMALLH, Urine Culture Indicated YES 04/30/20 06:30: White Blood Count 13.5H, Red Blood Count 3.92, Hemoglobin 10.2L, Hematocrit 33L, Mean Corpuscular Volume 84, Mean Corpuscular Hemoglobin 26, Mean Corpuscular Hemoglobin Concent 31L, Red Cell Distribution Width 14.1, Platelet Count 386, Mean Platelet Volume 10.6, Immature Granulocyte % (Auto) 2, Neutrophils (%) (Auto) 65, Lymphocytes (%) (Auto) 24, Monocytes (%) (Auto) 7, Eosinophils (%) (Auto) 1, Basophils (%) (Auto) 1, Neutrophils # (Auto) 8.8H, Lymphocytes # (Auto) 3.2, Monocytes # (Auto) 0.9, Eosinophils # (Auto) 0.2, Basophils # (Auto) 0.1, Immature Granulocyte # (Auto) 0.3H 04/30/20 10:15: MOIRA MACK MD Apr 30, 2020 14:09
[2020-04-30] MEDS ORDERED: WITCH HAZEL(TUCKS) 40 EA JAR TOP PRN (14:15)
[2020-04-30] MEDS ORDERED: BENZOCAINE/MENTHOL (DERMOPLAST) 60 ML CAN TP PRN (14:15)
[2020-04-30] MEDS ORDERED: MEASLES,MUMPS,RUBELLA 1 EA INJ SQ ONE (14:15)
--- NOTE | 2020-04-30 15:48 | NUR ---
Dr Payne notified of BP's noted, pt denies c/o headache, blurry vision. No swelling noted. New order for labs received.
--- NOTE | 2020-04-30 16:00 | NUR ---
Assisted up to bathroom, void and pericare, pad changed and underwear on.
[2020-04-30 16:38] LABS: ALANINE AMINOTRANSFERASE 7 U/L (0-55); ALBUMIN 3.1 GM/DL (3.2-4.5); ALKALINE PHOSPHATASE 167 U/L (40-136); BILIRUBIN,TOTAL 0.5 MG/DL (0.1-1.0); BUN/CREATININE RATIO 6; CALCIUM 8.6 MG/DL (8.5-10.1); CARBON DIOXIDE 19 MMOL/L (21-32); CHLORIDE 108 MMOL/L (98-107); CREATININE SERUM 0.82 MG/DL (0.60-1.30); GFR ESTIMATED > 60; GLUCOSE 102 MG/DL (70-105); POTASSIUM 3.5 MMOL/L (3.6-5.0); SODIUM 136 MMOL/L (135-145); TOTAL PROTEIN 5.9 GM/DL (6.4-8.2); URIC ACID 5.3 MG/DL (2.6-7.2)
[2020-04-30] MEDS: IBUPROFEN 600 MG (MOTRIN) TAB PO SCH (16:38)
--- NOTE | 2020-04-30 16:45 | NUR ---
Pt transferred to room 312 via wheelchair. Pt to bed and oriented to room, call light and surroundings. Plan of care reviewed with pt and s.o.
[2020-04-30] MEDS: DOCUSATE SODIUM 100 MG (COLACE) CAP PO SCH (22:10)
--- NOTE | 2020-04-30 22:10 | NUR ---
Pt. requests shower at this time. IV covered and taped. Shower set up and bed changed. No other requests or questions at this time.
[2020-04-30] MEDS: ACETAMINOPHEN 500 MG TAB (TYLENOL) PO SCH (22:11)
[2020-05-01] MEDS: IBUPROFEN 600 MG (MOTRIN) TAB PO SCH ×3 (00:17→12:10)
[2020-05-01 01:30] VITALS: BP 131/60
[2020-05-01] MEDS: ACETAMINOPHEN 500 MG TAB (TYLENOL) PO SCH (06:14)
[2020-05-01 06:16] VITALS: BP 123/56
[2020-05-01 07:04] LABS: BASOPHILS # (AUTO) 0.1 10^3/uL (0.0-0.1); BASOPHILS % (AUTO) 0 % (0-10); EOSINOPHILS # (AUTO) 0.1 10^3/uL (0.0-0.3); EOSINOPHILS % (AUTO) 1 % (0-10); HEMATOCRIT 29 % (35-52); HEMOGLOBIN 8.8 g/dL (11.5-16.0); LYMPHOCYTES # (AUTO) 2.8 10^3/uL (1.0-4.0); LYMPHOCYTES % (AUTO) 18 % (12-44); MEAN CORPUSCULAR HEMOGLOBIN 25 pg (25-34); MEAN CORPUSCULAR HGB CONC 30 g/dL (32-36); MEAN CORPUSCULAR VOLUME 84 fL (80-99); MEAN PLATELET VOLUME 10.5 fL (9.0-12.2); MONOCYTES # (AUTO) 1.1 10^3/uL (0.0-1.0); MONOCYTES % (AUTO) 7 % (0-12); NEUTROPHILS # (AUTO) 11.6 10^3/uL (1.8-7.8); NEUTROPHILS % (AUTO) 72 % (42-75); PLATELET COUNT 310 10^3/uL (130-400); WHITE BLOOD COUNT 16.1 10^3/uL (4.3-11.0)
--- NOTE | 2020-05-01 07:44 | Anesthesia-Regional Post-Op ---
Regional Patient Condition Mental Status: Alert, Oriented x3 Circulation: Same as Pre-Op Headache: Absent Sensation: Full Recovery Motor Block: Absent Post Op Complications Complications None Follow Up Care/Instructions Patient Instructions None needed. Anesthesia/Patient Condition Patient is doing well, no complaints, stable vital signs, no apparent adverse anesthesia problems. No complications reported per nursing. BEVERLY DELUNA CRNA May 01, 2020 07:44
[2020-05-01 08:57] VITALS: BP 120/49
--- NOTE | 2020-05-01 08:57 | NUR ---
initial shift assessment completed, see interventions for further.
--- NOTE | 2020-05-01 09:20 | NUR ---
Joe Nieto here. pending dismissal orders received.
[2020-05-01] MEDS ORDERED: FERROUS SULF 325 MG (IRON) TAB PO SCH (12:00)
[2020-05-01] MEDS ORDERED: IBUP-844 PO (12:04)
--- NOTE | 2020-05-01 12:07 | Short Stay Summary ---
Discharge Summary Hospital Course Problems/Dx: (1) Status post vaginal delivery Final Diagnosis: see problem list Hospital Course Date of Admission: Apr 30, 2020 at 06:00 Admission Diagnosis : 1. 39wk GA 2. Onset of labor 3. iron deficiency anemia of Family Physician/Provider: [place] - Dr. Payne Date of Discharge: 05/01/20 Discharge Diagnosis: s/p iron deficiency anemia of Hospital Course: Routine course Labs and Pending Lab Test: Laboratory Tests 04/30/20 16:05: Sodium Level 136, Potassium Level 3.5L, Chloride Level 108H, Carbon Dioxide Level 19L, Anion Gap 9, Blood Urea Nitrogen 5L, Creatinine 0.82, Estimat Glomerular Filtration Rate > 60, BUN/Creatinine Ratio 6, Glucose Level 102, Uric Acid 5.3, Calcium Level 8.6, Corrected Calcium 9.3, Total Bilirubin 0.5, Aspartate Amino Transf (AST/SGOT) 18, Alanine Aminotransferase (ALT/SGPT) 7, Alkaline Phosphatase 167H, Lactate Dehydrogenase 196, Total Protein 5.9L, Albumin 3.1L 05/01/20 06:40: White Blood Count 16.1H, Red Blood Count 3.47L, Hemoglobin 8.8L, Hematocrit 29L, Mean Corpuscular Volume 84, Mean Corpuscular Hemoglobin 25, Mean Corpuscular Hemoglobin Concent 30L, Red Cell Distribution Width 14.1, Platelet Count 310, Mean Platelet Volume 10.5, Immature Granulocyte % (Auto) 2, Neutrophils (%) (Auto) 72, Lymphocytes (%) (Auto) 18, Monocytes (%) (Auto) 7, Eosinophils (%) (Auto) 1, Basophils (%) (Auto) 0, Neutrophils # (Auto) 11.6H, Lymphocytes # (Auto) 2.8, Monocytes # (Auto) 1.1H, Eosinophils # (Auto) 0.1, Basophils # (Auto) 0.1, Immature Granulocyte # (Auto) 0.3H Microbiology 04/30/20 Urine Culture - Final, Complete 3 or more isolates Home Meds Active Reported Acid Resident Programs Assistant (FAMOTIDINE) (Famotidine) 10 Mg Tablet 10 Mg PO BID Formula ( Vit W-Ca,Fe,FA(<1 mg)) 1 Each Tablet 1 Each PO DAILY Assessment/Pt Instructions follow up with Dr. Payne in 6 weeks Discharge Instructions Discharge Diet: No Restrictions Activity as Tolerated: Yes Discharge Physical Examination General Appearance: Alert, Oriented X3, Cooperative Psych/Mental Status: Mood NL Allergies: Coded Allergies: No Known Drug Allergies (Unverified , 05/26/16) Copy Copies To 1: MOIRA PAYNE MD Discharge Summary Date of Admission Apr 30, 2020 at 06:00 Date of Discharge Discharge Date: May 01, 2020 MARK SOTRM DO May 01, 2020 12:07
[2020-05-01] MEDS: DOCUSATE SODIUM 100 MG (COLACE) CAP PO SCH (12:10)
--- NOTE | 2020-05-01 15:11 | NUR ---
was called with bili level of 2.0. dismissal orders received
--- NOTE | 2020-05-01 16:25 | NUR ---
dismissal instructions given, verbalizes understanding. reviewed follow up appointments and Rx's. signature page signed, placed on chart.
--- NOTE | 2020-05-01 16:45 | NUR ---
pt ambulated to private vehicle with RN, and s/o @ side. infant secured in rear facing car seat. pt stable with no sx's of distress noted.
== END 2020-05-01 16:45 | disposition home or self-care (01) | DRG 807 ==
LOC: WSo 04:25 → LDRP 04:36 → WSo 06:00 → LDRP 16:56
PROVIDERS: ADMIT Family Medicine; ATTEND Family Medicine
PROC: 10E0XZZ Delivery of Products of Conception, External Approach (ICD-10-PCS; principal; 2020-04-30)
DX: O99.02 Anemia complicating childbirth (principal); Z37.0 Single live birth; Z3A.39 39 weeks gestation of pregnancy; D50.9 Iron deficiency anemia, unspecified; O69.81X0 Labor and delivery complicated by cord around neck, without compression, not applicable or unspecified; Z20.822 Contact with and (suspected) exposure to COVID-19
CPT/HCPCS: 36415; 80053; 81000; 82570; 83615; 84156; 84550; 85025; 86850; 86900; 86901; 87088; 87635; 99212

== ENCOUNTER 2020-06-09 00:08 | Emergency (ER) | payer MEDICAID ==
[~2020-06-09] VITALS: Ht 162 cm; Wt 63.0 kg
[~2020-06-09 00:08] MED LIST changes: +FAMO-144 PO; +IBUP-844 PO; +PREN-8 PO
[2020-06-09] MEDS ORDERED: ONDANSETRON 4 MG/2 ML (SDV) Z0FRAN ONE (00:45)
[2020-06-09] MEDS ORDERED: fentaNYL INJECTION 100 MCG/2 ML AMP ONE (00:45)
--- NOTE | 2020-06-09 00:47 | ED General ---
General Stated Complaint: DX: MASTITIS, FEVER, GENERAL PAIN Source of Information: Patient Exam Limitations: No Limitations History of Present Illness Date Seen by Provider: Jun 09, 2020 Time Seen by Provider: 00:30 Initial Comments Patient is a 25-year-old female who presents to the emergency department today with a chief complaint of intermittent fevers and chills and significant left breast pain. Patient states that she has been fighting plugged ducts and mastitis of the left breast for about a week. Patient states she has had increasing swelling and some drainage from around her nipple this evening. Patient states that she has been on clindamycin since last Tuesday. She has been taking it 4 times a day. She states that her primary care physician, Dr. Mack has been taking care of her left breast but this evening the pain became so severe that she could not tolerate it anymore. Patient denies any nausea, vomiting, diarrhea. She denies any urinary complaints. No abnormal vaginal discharge. She is 1 month post vaginal delivery of a viable female infant. No complications with delivery. She states that her daughter never would latch appropriately or take the breast very well so she quit breast-feeding a couple of weeks ago. Patient states the right breast is fine but the left breast is continued to swell and become engorged. All other review of systems reviewed and negative except as stated above. Timing/Duration: Constant, Getting Worse Modifying Factors: improves with Cold Therapy; worse with Movement Allergies and Home Medications Allergies Coded Allergies: No Known Drug Allergies (Unverified , 05/26/16) Home Medications Hydrocodone/Acetaminophen 1 Each Tablet, 1 TAB PO Q4H PRN for PAIN-MODERATE (5- 7) Prescribed by: DUNCAN MORALES on 06/09/20 0212 Ibuprofen 600 Mg Tablet, 600 MG PO Q6HR PRN for CRAMPS Prescribed by: MARK STORM on 05/01/20 1204 Vit W-Ca,Fe,FA(<1 mg) 1 Each Tablet, 1 EACH PO DAILY, (Reported) Patient Home Medication List Home Medication List Reviewed: Yes Review of Systems Review of Systems Constitutional: see HPI EENTM: no symptoms reported Respiratory: no symptoms reported Cardiovascular: no symptoms reported Gastrointestinal: no symptoms reported : No Musculoskeletal: no symptoms reported Skin: other (Significantly engorged left breast, red and painful) Past Yfvxuic-Kxtmet-Kryfwm Hx Patient Social History 2nd Hand Smoke Exposure: No Recent Hopitalizations: No Immunizations Up To Date Tetanus Booster (TDap): Less than 5yrs Date of Influenza Vaccine: Jan 28, 2021 Seasonal Allergies Seasonal Allergies: No Past Medical History Surgeries: Yes (BILATERAL OVARIAN CYSTS REMOVED WITH APPY 05/2016) Appendectomy Respiratory: Yes Asthma Cardiac: Yes (Pulmonary Valve Prolapse) Heart Murmur, Valvular Heart Disease Neurological: No Reproductive Disorders: No Female Reproductive Disorders: Ovarian Cyst Sexually Transmitted Disease: No HIV/AIDS: Yes Genitourinary: Yes Kidney Infection, Bladder Infection Gastrointestinal: No Musculoskeletal: No Endocrine: No HEENT: No Cancer: No Psychosocial: Yes Anxiety Integumentary: No Blood Disorders: No Adverse Reaction/Blood Tranf: No Family Medical History No Pertinent Family Hx Physical Exam Vital Signs Vital Signs - First Documented 06/09/20 00:45 Temp 36.8 Pulse 93 Resp 18 B/P (MAP) 163/117 (132) Pulse Ox 99 O2 Delivery Room Air Capillary Refill : Height, Weight, BMI Height: 5'2.00" Weight: 130lbs. 0oz. 58.992026hh; 208.05 BMI Method:Stated General Appearance: No Apparent Distress, WD/WN HEENT: PERRL/EOMI Respiratory: Lungs Clear, Normal Breath Sounds, No Accessory Muscle Use, No Respiratory Distress Cardiovascular: Regular Rate, Rhythm Gastrointestinal: Normal Bowel Sounds, Non Tender, Soft Extremity: Normal Capillary Refill, Normal Inspection, Normal Range of Motion, Non Tender Neurologic/Psychiatric: Alert, Oriented x3, Normal Mood/Affect Skin: Normal Color, Warm/Dry, Other (Left breast is quite engorged. She has very fluctuant meibomian glands are in the areola. The breast is very tender and warm. No spontaneous drainage.) Focused Exam Lactate Level 06/09/20 00:50: Lactic Acid Level 1.51 Lactic Acid Level Progress/Results/Core Measures Suspected Sepsis SIRS Temperature: Pulse: Respiratory Rate: Laboratory Tests 06/09/20 00:50: White Blood Count 16.0H Blood Pressure / Mean: 06/09/20 00:50: Lactic Acid Level 1.51 Laboratory Tests 06/09/20 00:50: Creatinine 0.95, Platelet Count 965H Results/Orders Lab Results My Orders Medications Given in ED Vital Signs/I&O Capillary Refill : Progress Note : Time: 02:02 Progress Note Labs obtained and reviewed, Laure has a 16,000 white count with a normal lactic acid. Her CRP is elevated at 10. Patient's breast is quite inflamed and engorged. She has tried multiple times to use a manual breast pump to try and express milk and is unable to do so. She just has increased pain. She is treated in the emergency department with 50 mcg of fentanyl. She is comfortable at this time. She is afebrile here in the department. She desires discharge. She was scheduled by [facility] to have a breast ultrasound tomorrow however is unsure of the time. In order to make sure that she gets that ultrasound tomorrow I am going to reorder the breast ultrasound and give her the number for radiology for in the morning. She will be sent home with a take-home pack of 5 mg hydrocodone tablets. She is instructed to also take ibuprofen as needed. She is also instructed to use ice packs to the breast for the discomfort. She verbalizes understanding. She is agreeable for discharge and ready to go home. All questions have been sought and answered. Departure Impression Primary Impression: Breast engorge-unspec Additional Impression: Mastitis, left, acute Disposition: 01 HOME, SELF-CARE Condition: Stable Departure-Patient Inst. Decision time for Depature: 02:08 Referrals: MOIRA MACK MD (PCP) Primary Care Physician [facility] [place] (Family) Primary Care Physician Patient Instructions: Mastitis Add. Discharge Instructions: Drink lots of fluids to stay well-hydrated. Continue to take the clindamycin as directed. Ice to the left breast as needed for comfort. Hydrocodone 5 mg 1 every 4-6 hours as needed for severe pain. Alternate with ib uprofen. Take an zkbf-int-qoaquly iron supplement such as Vitron C for your anemia. You also need to be on stool softeners while you are taking hydrocodone. Please call for your follow-up breast ultrasound tomorrow. Keep any and all follow-ups with Dr. Mack. Scripts Hydrocodone/Acetaminophen (Hydrocodone-Acetamin 5-325 mg) 1 Each Tablet 1 TAB PO Q4H PRN for PAIN-MODERATE (5-7), #14 TAB Prov: DUNCAN MORALES MD 06/09/20 Copy Copies To 1: GAULT,DUNCAN PAREDES MD, MD Jun 09, 2020 00:46
[2020-06-09 01:03] LABS: BASOPHILS # (AUTO) 0.1 10^3/uL (0.0-0.1); BASOPHILS % (AUTO) 0 % (0-10); EOSINOPHILS # (AUTO) 0.5 10^3/uL (0.0-0.3); EOSINOPHILS % (AUTO) 3 % (0-10); HEMATOCRIT 29 % (35-52); HEMOGLOBIN 8.5 g/dL (11.5-16.0); LYMPHOCYTES # (AUTO) 2.5 10^3/uL (1.0-4.0); LYMPHOCYTES % (AUTO) 16 % (12-44); MEAN CORPUSCULAR HEMOGLOBIN 23 pg (25-34); MEAN CORPUSCULAR HGB CONC 30 g/dL (32-36); MEAN CORPUSCULAR VOLUME 79 fL (80-99); MEAN PLATELET VOLUME 8.5 fL (9.0-12.2); MONOCYTES # (AUTO) 1.1 10^3/uL (0.0-1.0); MONOCYTES % (AUTO) 7 % (0-12); NEUTROPHILS # (AUTO) 11.4 10^3/uL (1.8-7.8); NEUTROPHILS % (AUTO) 71 % (42-75); PLATELET COUNT 965 10^3/uL (130-400)
[2020-06-09 01:08] LABS: CHLORIDE 102 MMOL/L (98-107); POTASSIUM 3.4 MMOL/L (3.6-5.0); SODIUM 141 MMOL/L (135-145)
[2020-06-09 01:09] LABS: CALCIUM 8.9 MG/DL (8.5-10.1)
[2020-06-09 01:10] LABS: GLUCOSE 94 MG/DL (70-105)
[2020-06-09 01:11] LABS: CARBON DIOXIDE 25 MMOL/L (21-32)
[2020-06-09 01:14] LABS: CREATININE SERUM 0.95 MG/DL (0.60-1.30); GFR ESTIMATED > 60
[2020-06-09 01:15] LABS: BUN/CREATININE RATIO 8
[2020-06-09 01:30] LABS: BAND NEUTROPHILS 3 %; LYMPHOCYTES % (MANUAL) 14 %; MONOCYTES % (MANUAL) 2 %; NEUTROPHILS % (MANUAL) 78 %
[2020-06-09 01:31] LABS: ANISOCYTOSIS SLIGHT; EOSINOPHILS % (MANUAL) 3 %; HYPOCHROMASIA SLIGHT; POLYCHROMASIA SLIGHT; STOMATOCYTES SLIGHT
[2020-06-09] MEDS ORDERED: ACHD5005 PO (02:12)
[2020-06-09 02:15] VITALS: BP 158/98
[2020-06-09] MEDS ORDERED: RX-HYDROCODONE/APAP 5/325 MG #4 TAB PK PO PRN (02:15)
== END 2020-06-09 02:15 | disposition home or self-care (01) ==
LOC: EDUNIT# 00:08 → ER 00:10
DX: N61.0 Mastitis without abscess (principal)
CPT/HCPCS: 36415; 80048; 83605; 85007; 85027; 86141; 87040

== ENCOUNTER → 2020-06-10 | Outpatient (CLI) | payer MEDICAID ==
[~2020-06-10] MED LIST changes: +CLIN300C12 PO; +IBUP-2185 PO
--- NOTE | 2020-06-10 14:34 | Diagnostic Imaging Report ---
INDICATION: Patient had been breast-feeding until recently. Patient has progressive redness and enlargement of the left breast as well as pain with some areas of draining around the areola. Patient also reports fever. FINDINGS: Sonographic interrogation of the left breast was performed. There is marked heterogeneity of the breast tissue throughout all quadrants. No definite discrete fluid collection is identified; however, the findings are most likely inflammatory. No discrete mass is identified. IMPRESSION: Heterogeneity to the breast tissue, likely owing to an infectious process such as mastitis. The possibility of organized fluid such as an abscess cannot be entirely excluded on these images. Close followup after therapy is recommended with a repeat study in 2-4 weeks to confirm clearing. ACR BI-RADS Category 3: Probably benign findings. Dictated by: Dictated on workstation # [id number]
== END ==
LOC: RAD 12:30
PROVIDERS: ATTEND Emergency Medicine
DX: N61.0 Mastitis without abscess (principal)
CPT/HCPCS: 76641

== ENCOUNTER 2020-06-11 11:01 | Inpatient (IN) | payer MEDICAID ==
[~2020-06-11] VITALS: Ht 152 cm; Wt 61.4 kg
[~2020-06-11 11:01] MED LIST changes: -CLIN300C12 PO; -IBUP-2185 PO
[2020-06-11] MEDS ORDERED: MAGNESIUM 1 GM/100 ML IVPB 100 ML IV ONE (12:02)
[2020-06-11] MEDS ORDERED: LABETALOL HCL 20 MG/4 ML VIAL IV ONE ×2 (12:15→13:15)
[2020-06-11 12:18] LABS: BASOPHILS # (AUTO) 0.1 10^3/uL (0.0-0.1); BASOPHILS % (AUTO) 1 % (0-10); EOSINOPHILS # (AUTO) 0.5 10^3/uL (0.0-0.3); EOSINOPHILS % (AUTO) 5 % (0-10); HEMATOCRIT 29 % (35-52); HEMOGLOBIN 8.6 g/dL (11.5-16.0); LYMPHOCYTES # (AUTO) 1.5 10^3/uL (1.0-4.0); LYMPHOCYTES % (AUTO) 15 % (12-44); MEAN CORPUSCULAR HEMOGLOBIN 23 pg (25-34); MEAN CORPUSCULAR HGB CONC 30 g/dL (32-36); MEAN CORPUSCULAR VOLUME 79 fL (80-99); MONOCYTES # (AUTO) 0.5 10^3/uL (0.0-1.0); MONOCYTES % (AUTO) 5 % (0-12); NEUTROPHILS % (AUTO) 73 % (42-75); PLATELET COUNT 985 10^3/uL (130-400); WHITE BLOOD COUNT 9.7 10^3/uL (4.3-11.0)
--- NOTE | 2020-06-11 12:18 | ED Respiratory ---
General Chief Complaint: Cough/Cold/Flu Symptoms Stated Complaint: COUGHING,SOB Nursing Triage Note: PT PRESENTS TO ED VIA POV FROM HOME WITH COMPLAINTS OF PRODUCTIVE COUGH STARTING THIS AM. PT REPORTS SHE IS CURRENTLY ON A ANTIBIOTIC FOR MASTITIS AND HAS PACKING PLACED. PT DENIES RECENT FEVER, SORE THROAT OR CONGESTION. Source: patient Exam Limitations: no limitations History of Present Illness Date Seen by Provider: Jun 11, 2020 Time Seen by Provider: 12:00 Initial Comments 25-year-old female presents to the emergency department today with a chief complaint of shortness of breath and coughing. Patient states she woke up around 5:00 this morning with significant cough and progressive shortness of breath throughout the morning. Patient denies any pain. She denies any significant swelling in her lower extremities. She has no fevers chills, sore throat, earaches, runny nose or congestion. Patient has recently been being treated for mastitis, is on clindamycin. I saw this patient 3 days ago and she appeared well except for her mastitis. Patient denies chest pain. She denies nausea. She states that she has had profuse sweating. No headaches, vision changes. No changes in urination. Patient is approximately 6 weeks a normal spontaneous vaginal delivery on April 30. She tells me that she had mildly elevated blood pressures the day after delivery but did not require medications to control her blood pressures. All other review of systems reviewed and negative except as stated. Timing/Duration: this morning Prior Episodes/Possible Cause: no prior episodes Modifying Factors: Improves With Coughing Associated Symptoms: cough, shortness of breath Allergies and Home Medications Allergies Coded Allergies: No Known Drug Allergies (Unverified , 05/26/16) Home Medications Hydrocodone/Acetaminophen 1 Each Tablet, 1 TAB PO Q4H PRN for PAIN-MODERATE (5- 7) Prescribed by: DUNCAN MORALES on 06/09/20 0212 Ibuprofen 600 Mg Tablet, 600 MG PO Q6HR PRN for CRAMPS Prescribed by: MARK STORM on 05/01/20 1204 Vit W-Ca,Fe,FA(<1 mg) 1 Each Tablet, 1 EACH PO DAILY, (Reported) Patient Home Medication List Home Medication List Reviewed: Yes Review of Systems Review of Systems Constitutional: see HPI EENTM: no symptoms reported Respiratory: cough, dyspnea on exertion, phlegm, short of breath Cardiovascular: no symptoms reported Gastrointestinal: no symptoms reported Genitourinary: no symptoms reported : No Musculoskeletal: no symptoms reported Psychiatric/Neurological: Anxiety All Other Systems Reviewed Negative Unless Noted: Yes Past Lrnbyjj-Ppkxaj-Rispan Hx Patient Social History Alcohol Use: Denies Use Smoking Status: Never a Smoker 2nd Hand Smoke Exposure: No Recent Infectious Disease Expo: No Recent Hopitalizations: No Immunizations Up To Date Tetanus Booster (TDap): Less than 5yrs Date of Influenza Vaccine: Jan 28, 2021 Seasonal Allergies Seasonal Allergies: No Past Medical History Surgeries: Yes (BILATERAL OVARIAN CYSTS REMOVED WITH APPY 05/2016) Appendectomy Respiratory: Yes Asthma Cardiac: Yes (Pulmonary Valve Prolapse) Heart Murmur, Valvular Heart Disease Neurological: No Reproductive Disorders: No Female Reproductive Disorders: Ovarian Cyst Sexually Transmitted Disease: No HIV/AIDS: Yes Genitourinary: Yes Kidney Infection, Bladder Infection Gastrointestinal: No Musculoskeletal: No Endocrine: No HEENT: No Cancer: No Psychosocial: Yes Anxiety Integumentary: No Blood Disorders: No Adverse Reaction/Blood Tranf: No Family Medical History No Pertinent Family Hx Physical Exam Vital Signs - First Documented Capillary Refill : Less Than 3 Seconds Height: 5'2.00" Weight: 130lbs. 0oz. 58.854593te; 27.00 BMI Method:Stated General Appearance: WD/WN, mild distress Eyes: Bilateral Eye Normal Inspection, Bilateral Eye PERRL, Bilateral Eye EOMI HEENT: normal ENT inspection Neck: full range of motion, supple Respiratory: accessory muscle use, rales, other (Tachypnea) Cardiovascular: regular rate, rhythm, no edema, tachycardia Gastrointestinal: non tender, soft Extremities: non-tender, normal inspection, no pedal edema, no calf tenderness Neurologic/Psychiatric: curriculum developer II-XII nml as tested, no motor/sensory deficits, alert, normal mood/affect, oriented x 3, other (3+ DTRs patellar bilaterally) Skin: normal color, diaphoresis Progress/Results/Core Measures Suspected Sepsis Recent Fever Within 48 Hours: No Infection Criteria Present: Documented Infection New/Unexplained Altered Menta: No Sepsis Screen: No Definite Risk SIRS Temperature: Pulse: 127 Respiratory Rate: 18 Laboratory Tests 06/11/20 11:59: White Blood Count 9.7 Blood Pressure 167 /131 Mean: 143 Laboratory Tests 06/11/20 11:59: Creatinine 0.84, INR Comment 0.9, Platelet Count 985H, Total Bilirubin 0.3 Results/Orders Lab Results Laboratory Tests Test 06/11/20 11:59 06/11/20 12:30 06/11/20 12:37 Range/Units White Blood Count 9.7 4.3-11.0 10^3/uL Red Blood Count 3.71 L 3.80-5.11 10^6/uL Hemoglobin 8.6 L 11.5-16.0 g/dL Hematocrit 29 L 35-52 % Mean Corpuscular Volume 79 L 80-99 fL Mean Corpuscular Hemoglobin 23 L 25-34 pg Mean Corpuscular Hemoglobin Concent 30 L 32-36 g/dL Red Cell Distribution Width 18.6 H 10.0-14.5 % Platelet Count 985 H 130-400 10^3/uL Mean Platelet Volume 9.0 9.0-12.2 fL Immature Granulocyte % (Auto) 1 % Neutrophils (%) (Auto) 73 42-75 % Lymphocytes (%) (Auto) 15 12-44 % Monocytes (%) (Auto) 5 0-12 % Eosinophils (%) (Auto) 5 0-10 % Basophils (%) (Auto) 1 0-10 % Neutrophils # (Auto) 7.0 1.8-7.8 10^3/uL Lymphocytes # (Auto) 1.5 1.0-4.0 10^3/uL Monocytes # (Auto) 0.5 0.0-1.0 10^3/uL Eosinophils # (Auto) 0.5 H 0.0-0.3 10^3/uL Basophils # (Auto) 0.1 0.0-0.1 10^3/uL Immature Granulocyte # (Auto) 0.1 0.0-0.1 10^3/uL Prothrombin Time 12.9 12.2-14.7 SEC INR Comment 0.9 0.8-1.4 Activated Partial Thromboplast Time 33 24-35 SEC D-Dimer 2.00 H 0.00-0.49 UG/ML Sodium Level 141 135-145 MMOL/L Potassium Level 3.7 3.6-5.0 MMOL/L Chloride Level 102 98-107 MMOL/L Carbon Dioxide Level 27 21-32 MMOL/L Anion Gap 12 5-14 MMOL/L Blood Urea Nitrogen 7 7-18 MG/DL Creatinine 0.84 0.60-1.30 MG/DL Estimat Glomerular Filtration Rate > 60 BUN/Creatinine Ratio 8 Glucose Level 80 70-105 MG/DL Uric Acid 4.5 2.6-7.2 MG/DL Calcium Level 8.7 8.5-10.1 MG/DL Corrected Calcium 9.3 8.5-10.1 MG/DL Magnesium Level 2.1 1.6-2.4 MG/DL Total Bilirubin 0.3 0.1-1.0 MG/DL Aspartate Amino Transf (AST/SGOT) 14 5-34 U/L Alanine Aminotransferase (ALT/SGPT) 8 0-55 U/L Alkaline Phosphatase 120 40-136 U/L Lactate Dehydrogenase 246 H 125-220 U/L Troponin I 0.037 H <0.028 NG/ML B-Type Natriuretic Peptide 1068.3 H <100.0 PG/ML Total Protein 7.5 6.4-8.2 GM/DL Albumin 3.2 3.2-4.5 GM/DL Procalcitonin 0.04 <0.10 NG/ML Coronavirus 2019 (BETTY) Negative Negative Blood Gas Puncture Site LTWRIST Blood Gas Patient Temperature 97.5 Arterial Blood pH 7.44 H 7.37-7.43 Arterial Blood Partial Pressure CO2 39 35-45 MMHG Arterial Blood Partial Pressure O2 55 L 79-93 MMHG Arterial Blood HCO3 26 23-27 MMOL/L Arterial Blood Total CO2 27.3 21.0-31.0 MMOL/L Arterial Blood Oxygen Saturation 86 L 94-100 % Arterial Blood Base Excess 2.1 -2.5-2.5 MMOL/L Jason Test POS Blood Gas Ventilator Setting NO Blood Gas Inspired Oxygen 6L My Orders Orders - DUNCAN MORALES MD Magnesium 1 Gm/100 Ml Ivpb (Magnesium Ruiz (06/11/20 12:02) Ed Iv/Invasive Line Start (06/11/20 12:09) Cbc With Automated Diff (06/11/20 12:09) Comprehensive Metabolic Panel (06/11/20 12:09) LDH (06/11/20 12:09) Uric Acid (06/11/20 12:09) Troponin I (06/11/20 12:09) Ekg Tracing (06/11/20 12:09) Fibrin Degradation Products (06/11/20 12:09) Chest 1 View, Ap/Pa Only (06/11/20 12:09) Arterial Blood Gas (06/11/20 12:09) Labetalol Injection (Normodyne Injection (06/11/20 12:15) Magnesium (06/11/20 12:13) Protime With Inr (06/11/20 12:18) Partial Thromboplastin Time (06/11/20 12:18) Covid 19 Inhouse Test (06/11/20 12:23) Magnesium 1 Gm/100 Ml Ivpb (Magnesium Ruiz (06/11/20 12:45) Medications Given in ED Vital Signs/I&O 06/11/20 06/11/20 11:45 11:45 Temp 36.1 Pulse 127 Resp 18 B/P (MAP) 167/131 (143) Pulse Ox 95 O2 Delivery Nasal Cannula Room Air O2 Flow Rate 4.00 Capillary Refill : Less Than 3 Seconds Blood Pressure Mean: 143 Progress Note : Time: 13:02 Progress Note Multiple reevaluations of the patient, she remains quite dyspneic therefore she was placed on BiPAP. She had immediate improvement of her respiratory effort. Heart rate has come down to 87. Oxygen saturations are 94 to 95%. She feels better and is not coughing quite as much. Blood pressure is still quite elevated at 170/125. We will give a second dose of labetalol 40 mg. This will bring her total to 60 mg. She has 4 g of magnesium sulfate ordered she has had 2 so far. Discussed the plan of care with the patient. She will be placed in the ICU overnight anticipate that she will be in the hospital at least 2 midnights. She does have a mildly bumped troponin. Chest x-ray shows patchy pulmonary edema bilaterally. Case has been discussed with Dr. Alexandra. CTA pulmonary ordered for elevated Ddimer 1322 BP 152/111 1516 Patient is just now getting her hydralazine. complaining of a headache. will give toradol. BP still 150's/111 left breast appears much better than when I saw her 3 days ago. dressing in place with drainage noted. Patient states she has packing in place that is due to be changed tomorrow. I did not take the dressing down. breast is not near as tender as it was previously. ECG Initial ECG Impression Date: Jun 11, 2020 Initial ECG Impression Time: 12:26 Initial ECG Rate: 115 Initial ECG Rhythm: S.Tach Initial ECG Intervals: Normal Initial ECG Impression: Normal Diagnostic Imaging Diagonstic Imaging: Xray Plain Films/CT/US/NM/MRI: chest Comments [facility] [place], [place] NAME: ALVARO KIDD [facility] REC#: [id number] PT STATUS: REG ER : 1995 PHYSICIAN: DUNCAN MORALES MD ADMIT DATE: 06/11/20/ER Signed Date of Exam:06/11/20 CHEST 1 VIEW, AP/PA ONLY EXAMINATION: Chest 1 view. HISTORY: Shortness of breath. Tachycardia. Recent childbirth 4 weeks ago. COMPARISON: 05/17/2017. FINDINGS: The cardiac silhouette is prominent with central pulmonary vascular congestion and patchy opacities in the bilateral perihilar and basilar regions. No large pleural effusion or pneumothorax. No acute osseous abnormalities. IMPRESSION: 1. Patchy perihilar and basilar opacities bilaterally, concerning for edema given the prominent cardiac silhouette. However, infection can also have this appearance and correlation with patient symptoms is recommended. Dictated by: Dictated on workstation # [id number] Dict: 06/11/20 1243 Trans: 06/11/20 1255 [facility] [id number] Interpreted by: ABEL MONTIEL DO Electronically signed by: ABEL MONTIEL DO 06/11/20 1255 Critical Care Note Critical Care Start Time: 12:15 Stop Time: 14:34 Total Time (minutes) 1 hour critical care time in the evaluation and management of this patient with preeclampsia. Time includes management of hypoxia, blood pressure, review of the medical record, discussion with admitting physician, discussion with cardiology, discussion with pulmonology. Departure Communication (Admissions) Time/Spoke to Admitting Phy: 12:[address] Alexandra Impression Primary Impression: Preeclampsia in period Disposition: ADMITTED INPATIENT Condition: Critical Admissions Decision to Admit Reason: Admit from ER (General) Decision to Admit/Date: Jun 11, 2020 Time/Decision to Admit Time: 13:19 Departure-Patient Inst. Referrals: MOIRA MACK MD (PCP) Primary Care Physician [facility] (Family) Primary Care Physician DUNCAN MORALES MD Jun 11, 2020 12:18
[2020-06-11 12:25] LABS: ALBUMIN 3.2 GM/DL (3.2-4.5); CHLORIDE 102 MMOL/L (98-107); POTASSIUM 3.7 MMOL/L (3.6-5.0); SODIUM 141 MMOL/L (135-145)
[2020-06-11 12:26] LABS: CALCIUM 8.7 MG/DL (8.5-10.1)
[2020-06-11 12:27] LABS: GLUCOSE 80 MG/DL (70-105); TOTAL PROTEIN 7.5 GM/DL (6.4-8.2)
[2020-06-11 12:28] LABS: CARBON DIOXIDE 27 MMOL/L (21-32)
[2020-06-11 12:29] LABS: BILIRUBIN,TOTAL 0.3 MG/DL (0.1-1.0)
[2020-06-11 12:31] LABS: ALKALINE PHOSPHATASE 120 U/L (40-136); CREATININE SERUM 0.84 MG/DL (0.60-1.30); GFR ESTIMATED > 60; INR 0.9 (0.8-1.4); PROTHROMBIN TIME PATIENT 12.9 SEC (12.2-14.7)
[2020-06-11 12:32] LABS: BUN/CREATININE RATIO 8
[2020-06-11 12:34] LABS: ALANINE AMINOTRANSFERASE 8 U/L (0-55); MAGNESIUM 2.1 MG/DL (1.6-2.4); URIC ACID 4.5 MG/DL (2.6-7.2)
[2020-06-11] MEDS: MAGNESIUM 1 GM/100 ML IVPB 100 ML IV SCH ×4 (12:42→17:20)
--- NOTE | 2020-06-11 12:46 | Diagnostic Imaging Report ---
EXAMINATION: Chest 1 view. HISTORY: Shortness of breath. Tachycardia. Recent childbirth 4 weeks ago. COMPARISON: 05/17/2017. FINDINGS: The cardiac silhouette is prominent with central pulmonary vascular congestion and patchy opacities in the bilateral perihilar and basilar regions. No large pleural effusion or pneumothorax. No acute osseous abnormalities. IMPRESSION: 1. Patchy perihilar and basilar opacities bilaterally, concerning for edema given the prominent cardiac silhouette. However, infection can also have this appearance and correlation with patient symptoms is recommended. Dictated by: Dictated on workstation # [id number]
[2020-06-11 12:50] LABS: ABG BASE EXCESS 2.1 MMOL/L (-2.5-2.5); ABG OXYGEN SATURATION 86 % (94-100); ABG PCO2 39 MMHG (35-45); ABG PH 7.44 (7.37-7.43); ABG PO2 55 MMHG (79-93); ABG TCO2 27.3 MMOL/L (21.0-31.0)
[2020-06-11 12:53] LABS: ALLENS TEST POS; INSPIRED O2 6L
[2020-06-11 12:54] LABS: PATIENT TEMP 97.5; VENTILATOR NO
[2020-06-11] MEDS ORDERED: HOLD METFORMIN - RECEIVED CONTRAST 20 ML VIAL IV SCH (13:15)
[2020-06-11] MEDS ORDERED: IOHEXOL 350 MG/ML 100 ML (OMNIPAQUE 350) VIAL IV ONE (13:15)
[2020-06-11] MEDS ORDERED: NS 100 ML (IVPB) BAG IV ONE (13:15)
[2020-06-11 13:36] VITALS: BP 151/116
[2020-06-11] MEDS ORDERED: FUROSEMIDE 40 MG/4 ML INJ (LASIX) IVP ONE ×2 (13:45→21:00)
[2020-06-11] MEDS ORDERED: hydrALAZINE (APESOLINE) 20 MG/ML VIAL IV ONE (14:15)
--- NOTE | 2020-06-11 14:17 | Diagnostic Imaging Report ---
PROCEDURE: CT angiography of the chest with contrast. TECHNIQUE: Multiple contiguous axial images were obtained through the chest after uneventful bolus administration of intravenous contrast. 3D reconstructed CTA MIP acquisitions were also performed. Auto Exposure Controls were utilized during the CT exam to meet ALARA standards for radiation dose reduction. DATE: June 11, 2020. COMPARISON: Chest radiograph June 11, 2020. INDICATION: 25-year-old female, shortness of breath. Positive d-dimer. Hypertension. FINDINGS: There is multifocal bilateral fairly nodular an additional less well-defined alveolar consolidation. Consolidation is more notable in the right lung than the left. There is no pneumothorax. There is a small right pleural effusion. There is no sizable left pleural effusion. There is no identified pulmonary embolus. The main pulmonary artery is normal in caliber. The heart is not enlarged. There is no pericardial effusion. There is no evidence of aortic dissection. There is no identified abnormally enlarged mediastinal or hilar lymph node. There are asymmetrically prominent and abnormally enlarged left axillary lymph nodes measuring up to 12 mm in short axis for example on axial image 49. There is a large gas and fluid containing masslike abnormality in the left breast measuring approximately 7.6 x 4.1 cm in axial dimension. This abnormal gas may extend to the skin surface. This is incompletely imaged. Correlation with physical exam and patient history is needed. The imaged portions of the upper abdomen are unremarkable. There is no identified acute bony abnormality. IMPRESSION: CT CHEST. 1. Multifocal nodular and additional ill-defined airspace consolidation involving the lungs bilaterally with more involvement of the right lung compared to the left. Multifocal pneumonia including atypical infectious etiologies is in the differential diagnosis. Other alveolar consolidative processes and causes of an acute pneumonitis would also be considered. 2. Large gas and fluid containing-like mass abnormality in the left breast measuring approximately 7.6 x 4.1 cm in axial extent with areas of abnormal gas potentially extending to the skin surface. Recommend correlation with physical exam and with patient history. This may potentially reflect a large abscess. 3. No identified pulmonary embolus. 4. Small right pleural effusion. Dictated by: Dictated on workstation # [id number]
--- NOTE | 2020-06-11 15:06 | Consultation-Cardiology ---
HPI-Cardiology Cardiology Consultation Date of Consultation 06/11/20 Date of Admission Time Seen by Provider: 15:00 Indication: Dyspnea, preeclampsia HPI Patient is a 25 y/o female who presented to the ER with acute dyspnea. Reports she woke up at approx 5 am this morning with acute onset dyspnea and productive cough. She is approx 6 weeks with spontaneous vaginal delivery, reports no complications during or delivery, reports no complications with previous . Noted to be hypertensive. Stephanie being treated for mastitis and was seen in the ER on 06/09. Currently complains of dyspnea, denies any chest pain, reporting episodes of dizziness over the past 2 weeks. Home Medications & Allergies Allergies: Coded Allergies: No Known Drug Allergies (Unverified , 05/26/16) Home Medication List Reviewed: Yes BOG-Hazcrz-Thmnbb Hx Patient Social History Recreational Drug Use: No Smoking Status: Never a Smoker 2nd Hand Smoke Exposure: No Recent Hopitalizations: No Immunizations Up To Date Tetanus Booster (TDap): Less than 5yrs Date of Influenza Vaccine: Jan 28, 2021 Family Medical History Significant Family History: No Pertinent Family Hx Review of Systems-General Review of Systems Constitutional: see HPI, fever, malaise, weakness EENTM: no symptoms reported; No blurred vision, No double vision Respiratory: cough, dyspnea on exertion, orthopnea, phlegm, short of breath Cardiovascular: no symptoms reported; No chest pain, No edema, No Hx of Intervention, No palpitations, No syncope Gastrointestinal: no symptoms reported Genitourinary: no symptoms reported : No Musculoskeletal: no symptoms reported Psychiatric/Neurological: Anxiety All Other Systems Reviewed Negative Unless Noted: Yes Reviewed Test Results Reviewed Test Results Lab Laboratory Tests 06/11/20 11:59: White Blood Count 9.7, Red Blood Count 3.71L, Hemoglobin 8.6L, Hematocrit 29L, Mean Corpuscular Volume 79L, Mean Corpuscular Hemoglobin 23L, Mean Corpuscular Hemoglobin Concent 30L, Red Cell Distribution Width 18.6H, Platelet Count 985H, Mean Platelet Volume 9.0, Immature Granulocyte % (Auto) 1, Neutrophils (%) (Auto) 73, Lymphocytes (%) (Auto) 15, Monocytes (%) (Auto) 5, Eosinophils (%) (Auto) 5, Basophils (%) (Auto) 1, Neutrophils # (Auto) 7.0, Lymphocytes # (Auto) 1.5, Monocytes # (Auto) 0.5, Eosinophils # (Auto) 0.5H, Basophils # (Auto) 0.1, Immature Granulocyte # (Auto) 0.1, Prothrombin Time 12.9, INR Comment 0.9, Activated Partial Thromboplast Time 33, D-Dimer 2.00H, Sodium Level 141, Potassium Level 3.7, Chloride Level 102, Carbon Dioxide Level 27, Anion Gap 12, Blood Urea Nitrogen 7, Creatinine 0.84, Estimat Glomerular Filtration Rate > 60, BUN/Creatinine Ratio 8, Glucose Level 80, Uric Acid 4.5, Calcium Level 8.7, Corrected Calcium 9.3, Magnesium Level 2.1, Total Bilirubin 0.3, Aspartate Amino Transf (AST/SGOT) 14, Alanine Aminotransferase (ALT/SGPT) 8, Alkaline Phosphatase 120, Lactate Dehydrogenase 246H, Troponin I 0.037H, B-Type Natriuretic Peptide 1068.3H, Total Protein 7.5, Albumin 3.2 06/11/20 12:30: Coronavirus 2019 (BETTY) Negative 06/11/20 12:37: Blood Gas Puncture Site LTWRIST, Blood Gas Patient Temperature 97.5, Arterial Blood pH 7.44H, Arterial Blood Partial Pressure CO2 39, Arterial Blood Partial Pressure O2 55L, Arterial Blood HCO3 26, Arterial Blood Total CO2 27.3, Arterial Blood Oxygen Saturation 86L, Arterial Blood Base Excess 2.1, Jason Test POS, Blood Gas Ventilator Setting NO, Blood Gas Inspired Oxygen 6L ECG Impression ECG Initial ECG Rhythm: Normal Sinus Physical Exam Physical Exam Vital Signs Vital Signs - First Documented Capillary Refill : Less Than 3 Seconds Height, Weight, BMI Height: 5'2.00" Weight: 130lbs. 0oz. 58.091125dg; 27.00 BMI Method:Stated General Appearance: Anxious, Mild Distress Eyes: Bilateral Eye Normal Inspection, Bilateral Eye PERRL, Bilateral Eye EOMI HEENT: PERRL/EOMI Neck: Non Tender, Supple Respiratory: Chest Non Tender, Respiratory Distress Cardiovascular: Regular Rate, Rhythm; No JVD Gastrointestinal: Non Tender, Soft A/P-Cardiology Admission Diagnosis Acute resiratory distress Elevated troponin preeclamsia Mastitis Assessment/Plan Acute respiratory distress, hypoxemia, CTA showing no evidence of PE questionable pneumonia. Dr. Dobson consulted. Continue supportive care. I will evaluate 2D Echo Mildly elevated troponin, likely type II RI secondary to hypoxemia, evaluate 2D Echo. Peripartum heart failure, severe cardiomyopathy, started on diuretics, plan for life vest and start Entresto and Coreg as tolerated preeclampsia, given labetolol and hydralzine IV in ER. Continue to monitor blood pressure Mastitis- CTA chest showing mass to left breast concerning for abcess. Has been maintained on antibiotics as outpatient. Management per medical services Hx of MVP, I will evaluate 2D Echo Thank you for allowing us to participate in the management of Ms. Newell. This is Lesley Razo PA-C, as a scribe for Dr. Díaz Patient was seen with Lesley, discussed the management plan, reviewed the findings. Discussed the consultation and agree with the scribed note Patient is in acute respiratory insufficiency, on BiPAP at this time, limited history, workup is in progress to evaluate the source of her respiratory failure which appeared to be pneumonia and congestive heart failure, Patient is on BiPAP, will consider intubation for airway protection, Elevated BNP Echo showed dilated LV, severe systolic dysfunction, EF 25-30%, Moderated MR, PA 45-50 mmHg, given Lasix and will continue with diuretics, plan to initiate Entresto and Coreg if she can tolerate it Malignant/labile hypertension, adjust medication according to her blood pressure changes Admit to ICU LESLEY HOLT Jun 11, 2020 15:06 TRACY DÍAZ MD Jun 11, 2020 15:29
[2020-06-11] MEDS ORDERED: KETOROLAC 30 MG/ML VIAL IVP ONE (15:15)
[2020-06-11] MEDS ORDERED: CATHETER FLUSH 10 ML SYR IV PRN (16:00)
--- NOTE | 2020-06-11 16:07 | Pulmonary Consultation ---
History of Present Illness History of Present Illness Date Seen by Provider: Jun 11, 2020 Time Seen by Provider: 16:01 Date of Admission Reason for Visit: Dyspnea, preeclampsia History of Present Illness 25yo who is approximately 6 weeks normal spontaneous vaginal delivery on April 30. and has been dx and currently undergoing treatment for mastitis presented to ED secondary to worsening SOB and cough. Denies fever or pulmonary congestion. She woke up around 5:00 this morning with significant cough and progressive shortness of breath throughout the morning. Denies F/C. Denies CP. She has had profuse sweating. No headaches, vision changes. No changes in urination. Upon ED arrival she was noted to be hypertensive. BNP is elevated at 1068. Echo is pending. Allergies and Home Medications Allergies Coded Allergies: No Known Drug Allergies (Unverified , 05/26/16) Home Medications Hydrocodone/Acetaminophen 1 Each Tablet, 1 TAB PO Q4H PRN for PAIN-MODERATE (5- 7) Prescribed by: DUNCAN MORALES on 06/09/20 0212 Ibuprofen 600 Mg Tablet, 600 MG PO Q6HR PRN for CRAMPS Prescribed by: MARK STORM on 05/01/20 1204 Vit W-Ca,Fe,FA(<1 mg) 1 Each Tablet, 1 EACH PO DAILY, (Reported) Past Wsfotgj-Izvlqu-Vddiwm Hx Patient Social History Alcohol Use: Denies Use Smoking Status: Never a Smoker 2nd Hand Smoke Exposure: No Recent Infectious Disease Expo: No Recent Hopitalizations: No Immunizations Up To Date Tetanus Booster (TDap): Less than 5yrs Date of Influenza Vaccine: Jan 28, 2021 Seasonal Allergies Seasonal Allergies: No Past Medical History Surgeries: Yes (BILATERAL OVARIAN CYSTS REMOVED WITH APPY 05/2016) Appendectomy Respiratory: Yes Asthma Cardiac: Yes (Pulmonary Valve Prolapse) Heart Murmur, Valvular Heart Disease Neurological: No Reproductive Disorders: No Female Reproductive Disorders: Ovarian Cyst Sexually Transmitted Disease: No HIV/AIDS: Yes Genitourinary: Yes Kidney Infection, Bladder Infection Gastrointestinal: No Musculoskeletal: No Endocrine: No HEENT: No Cancer: No Psychosocial: Yes Anxiety Integumentary: No Blood Disorders: No Adverse Reaction/Blood Tranf: No Family Medical History No Pertinent Family Hx Review of Systems Time Seen by Provider: 16:08 Sepsis Event Evaluation Height, Weight, BMI Height: 5'2.00" Weight: 130lbs. 0oz. 58.705553kf; 27.00 BMI Method:Stated Exam Exam Vital Signs Date Time Temp Pulse Resp B/P (MAP) Pulse Ox O2 Delivery O2 Flow Rate FiO2 06/11/20 13:36 85 29 98 35.00 06/11/20 11:45 Room Air 06/11/20 11:45 36.1 127 18 167/131 (143) 95 Nasal Cannula 4.00 Height & Weight Height: 5'2.00" Weight: 130lbs. 0oz. 58.975092eh; 27.00 BMI Method:Stated General Appearance: Anxious, Mild Distress HEENT: PERRL/EOMI Neck: Non Tender, Supple Respiratory: Chest Non Tender, Respiratory Distress Cardiovascular: Regular Rate, Rhythm Capillary Refill: Less Than 3 Seconds Gastrointestinal: non tender, soft Results Lab Laboratory Tests 06/11/20 11:59 Assessment/Plan Assessment/Plan Acute respiratory failure r/o cardiomyopathy -Echo pending -Lasix -- pt was given lasix while in ED NSTEMI -Cardiology consulted HTN r/o preeclampsia -Check UA for proteinuria -Denies DODSON Mastitis with left breast abscess -Continue Abx from out patient -Consult surgery Anemia -Monitor PABLO HIGGINS DO Jun 11, 2020 16:07
[2020-06-11] MEDS ORDERED: hydrALAZINE (APESOLINE) 20 MG/ML VIAL IV PRN (16:15)
[2020-06-11] MEDS ORDERED: PHARMACY TO DOSE IV SCH (17:00)
[2020-06-11] MEDS ORDERED: VANCOMYCIN 1250 MG/NS 250 ML IVPB IV NR ×2 (17:00)
[2020-06-11] MEDS ORDERED: PIPERACILLIN/TAZO 4.5 GM/NS 100 ML IV NR ×2 (17:00)
[2020-06-11 17:08] LABS: BILIRUBIN,URINE NEGATIVE (NEGATIVE); CLARITY,URINE CLEAR; COLOR,URINE YELLOW; GLUCOSE, URINE (UA) NEGATIVE (NEGATIVE); KETONES,URINE NEGATIVE (NEGATIVE); LEUKOCYTE ESTERASE ,URINE NEGATIVE (NEGATIVE); NITRITE,URINE NEGATIVE (NEGATIVE); PROTEIN,URINE NEGATIVE (NEGATIVE)
[2020-06-11 17:24] LABS: BACTERIA,URINE MODERATE /HPF; WBC,URINE 0-2 /HPF
--- NOTE | 2020-06-11 17:40 | History & Physical ---
HPI History of Present Illness: 25-year-old presents to [facility] emergency department in the morning of June 11, 2020 with acute respiratory distress. She had been doing fairly normal up until this morning at approximately 5 a.m. when she awoke. She also had a cough but denied any fever or chills. She had delivered spontaneous vaginal on April 30, 2020 and this was uncomplicated. She is currently being treated for mastitis and recently had what she describes as incision and drainage with placement of wic. She reports there has been some drainage. She otherwise denies any chest pain. Source: patient Exam Limitations: clinical condition Date seen by provider: Jun 11, 2020 Time Seen by Provider: 17:10 Attending Physician Jan Khan MD PCP Kyra Payne MD Consult Date of Admission Jun 11, 2020 at 12:47 Home Medications Home Medications Reviewed patient Home Medication Reconciliation performed by pharmacy medication reconciliations thin film technician and/or nursing. Patients Allergies have been reviewed. Allergies Coded Allergies: No Known Drug Allergies (Unverified , 05/26/16) BZX-[id number]-Oxzxgh Hx Patient Social History Smoking Status: Never a Smoker 2nd Hand Smoke Exposure: No Recent Hopitalizations: No Alcohol Use?: No Immunizations Up To Date Tetanus Booster (TDap): Less than 5yrs Date of Influenza Vaccine: Jan 16, 2021 Past Medical History None Family Medical History Significant Family History: No Pertinent Family Hx Review of Systems ([facility]) Constitutional: see HPI Reviewed Test Results Reviewed Test Results Lab Laboratory Tests Test 06/11/20 11:59 06/11/20 12:30 06/11/20 12:37 06/11/20 15:03 Range/Units White Blood Count 9.7 4.3-11.0 10^3/uL Red Blood Count 3.71 L 3.80-5.11 10^6/uL Hemoglobin 8.6 L 11.5-16.0 g/dL Hematocrit 29 L 35-52 % Mean Corpuscular Volume 79 L 80-99 fL Mean Corpuscular Hemoglobin 23 L 25-34 pg Mean Corpuscular Hemoglobin Concent 30 L 32-36 g/dL Red Cell Distribution Width 18.6 H 10.0-14.5 % Platelet Count 985 H 130-400 10^3/uL Mean Platelet Volume 9.0 9.0-12.2 fL Immature Granulocyte % (Auto) 1 % Neutrophils (%) (Auto) 73 42-75 % Lymphocytes (%) (Auto) 15 12-44 % Monocytes (%) (Auto) 5 0-12 % Eosinophils (%) (Auto) 5 0-10 % Basophils (%) (Auto) 1 0-10 % Neutrophils # (Auto) 7.0 1.8-7.8 10^3/uL Lymphocytes # (Auto) 1.5 1.0-4.0 10^3/uL Monocytes # (Auto) 0.5 0.0-1.0 10^3/uL Eosinophils # (Auto) 0.5 H 0.0-0.3 10^3/uL Basophils # (Auto) 0.1 0.0-0.1 10^3/uL Immature Granulocyte # (Auto) 0.1 0.0-0.1 10^3/uL Prothrombin Time 12.9 12.2-14.7 SEC INR Comment 0.9 0.8-1.4 Activated Partial Thromboplast Time 33 24-35 SEC D-Dimer 2.00 H 0.00-0.49 UG/ML Sodium Level 141 135-145 MMOL/L Potassium Level 3.7 3.6-5.0 MMOL/L Chloride Level 102 98-107 MMOL/L Carbon Dioxide Level 27 21-32 MMOL/L Anion Gap 12 5-14 MMOL/L Blood Urea Nitrogen 7 7-18 MG/DL Creatinine 0.84 0.60-1.30 MG/DL Estimat Glomerular Filtration Rate > 60 BUN/Creatinine Ratio 8 Glucose Level 80 70-105 MG/DL Uric Acid 4.5 2.6-7.2 MG/DL Calcium Level 8.7 8.5-10.1 MG/DL Corrected Calcium 9.3 8.5-10.1 MG/DL Magnesium Level 2.1 1.6-2.4 MG/DL Total Bilirubin 0.3 0.1-1.0 MG/DL Aspartate Amino Transf (AST/SGOT) 14 5-34 U/L Alanine Aminotransferase (ALT/SGPT) 8 0-55 U/L Alkaline Phosphatase 120 40-136 U/L Lactate Dehydrogenase 246 H 125-220 U/L Troponin I 0.037 H <0.028 NG/ML B-Type Natriuretic Peptide 1068.3 H <100.0 PG/ML Total Protein 7.5 6.4-8.2 GM/DL Albumin 3.2 3.2-4.5 GM/DL Procalcitonin 0.04 <0.10 NG/ML Coronavirus 2019 (BETTY) Negative Negative Blood Gas Puncture Site LTWRIST Blood Gas Patient Temperature 97.5 Arterial Blood pH 7.44 H 7.37-7.43 Arterial Blood Partial Pressure CO2 39 35-45 MMHG Arterial Blood Partial Pressure O2 55 L 79-93 MMHG Arterial Blood HCO3 26 23-27 MMOL/L Arterial Blood Total CO2 27.3 21.0-31.0 MMOL/L Arterial Blood Oxygen Saturation 86 L 94-100 % Arterial Blood Base Excess 2.1 -2.5-2.5 MMOL/L Jason Test POS Blood Gas Ventilator Setting NO Blood Gas Inspired Oxygen 6L Test 06/11/20 16:55 Range/Units Urine Color YELLOW Urine Clarity CLEAR Urine pH 7.0 5-9 Urine Specific [place] 1.015 L 1.016-1.022 Urine Protein NEGATIVE NEGATIVE Urine Glucose (UA) NEGATIVE NEGATIVE Urine Ketones NEGATIVE NEGATIVE Urine Nitrite NEGATIVE NEGATIVE Urine Bilirubin NEGATIVE NEGATIVE Urine Urobilinogen 0.2 < = 1.0 MG/DL Urine Leukocyte Esterase NEGATIVE NEGATIVE Urine RBC (Auto) 2+ H NEGATIVE Urine RBC NONE /HPF Urine WBC 0-2 /HPF Urine Squamous Epithelial Cells 2-5 /HPF Urine Crystals NONE /LPF Urine Bacteria MODERATE H /HPF Urine Casts PRESENT /LPF Urine Hyaline Casts 2-5 H /LPF Urine Mucus N /LPF Urine Culture Indicated YES Radiology [facility] [place] NAME: ALVARO KIDD [facility] REC#: [id number] PT STATUS: REG ER : 1995 PHYSICIAN: DUNCAN MORALES MD ADMIT DATE: 06/11/20/ER Signed Date of Exam:06/11/20 CHEST 1 VIEW, AP/PA ONLY EXAMINATION: Chest 1 view. HISTORY: Shortness of breath. Tachycardia. Recent childbirth 4 weeks ago. COMPARISON: 05/17/2017. FINDINGS: The cardiac silhouette is prominent with central pulmonary vascular congestion and patchy opacities in the bilateral perihilar and basilar regions. No large pleural effusion or pneumothorax. No acute osseous abnormalities. IMPRESSION: 1. Patchy perihilar and basilar opacities bilaterally, concerning for edema given the prominent cardiac silhouette. However, infection can also have this appearance and correlation with patient symptoms is recommended. Dictated by: Dictated on workstation # [id number] Dict: 06/11/20 1243 Trans: 06/11/20 1255 [facility] [id number] Interpreted by: ABEL MONTIEL DO Electronically signed by: ABEL MONTIEL DO 06/11/20 1255 NAME: ALVARO KIDD [facility] REC#: [id number] PT STATUS: ADM IN : 1995 PHYSICIAN: DUNCAN MORALES MD ADMIT DATE: 06/11/20/ICU Signed Date of Exam:06/11/20 CT ANGIO CHEST W PROCEDURE: CT angiography of the chest with contrast. TECHNIQUE: Multiple contiguous axial images were obtained through the chest after uneventful bolus administration of intravenous contrast. 3D reconstructed CTA MIP acquisitions were also performed. Auto Exposure Controls were utilized during the CT exam to meet ALARA standards for radiation dose reduction. DATE: June 11, 2020. COMPARISON: Chest radiograph June 11, 2020. INDICATION: 25-year-old female, shortness of breath. Positive d-dimer. Hypertension. FINDINGS: There is multifocal bilateral fairly nodular an additional less well-defined alveolar consolidation. Consolidation is more notable in the right lung than the left. There is no pneumothorax. There is a small right pleural effusion. There is no sizable left pleural effusion. There is no identified pulmonary embolus. The main pulmonary artery is normal in caliber. The heart is not enlarged. There is no pericardial effusion. There is no evidence of aortic dissection. There is no identified abnormally enlarged mediastinal or hilar lymph node. There are asymmetrically prominent and abnormally enlarged left axillary lymph nodes measuring up to 12 mm in short axis for example on axial image 49. There is a large gas and fluid containing masslike abnormality in the left breast measuring approximately 7.6 x 4.1 cm in axial dimension. This abnormal gas may extend to the skin surface. This is incompletely imaged. Correlation with physical exam and patient history is needed. The imaged portions of the upper abdomen are unremarkable. There is no identified acute bony abnormality. IMPRESSION: CT CHEST. 1. Multifocal nodular and additional ill-defined airspace consolidation involving the lungs bilaterally with more involvement of the right lung compared to the left. Multifocal pneumonia including atypical infectious etiologies is in the differential diagnosis. Other alveolar consolidative processes and causes of an acute pneumonitis would also be considered. 2. Large gas and fluid containing-like mass abnormality in the left breast measuring approximately 7.6 x 4.1 cm in axial extent with areas of abnormal gas potentially extending to the skin surface. Recommend correlation with physical exam and with patient history. This may potentially reflect a large abscess. 3. No identified pulmonary embolus. 4. Small right pleural effusion. Dictated by: Dictated on workstation # [id number] Dict: 06/11/20 1403 Trans: 06/11/20 1710 [facility] [id number] Interpreted by: ENRIQUE RIZVI MD Electronically signed by: ENRIQUE RIZVI MD 06/11/20 4892 Physical Exam-([facility]) Physical Exam Vital Signs VS - Last 72 Hours, by Label 06/11/20 06/11/20 06/11/20 06/11/20 11:45 11:45 13:36 16:17 Temp 36.1 Pulse 127 85 85 Resp 18 29 20 B/P (MAP) 167/131 (143) 159/118 Pulse Ox 95 98 98 O2 Delivery Nasal Cannula Room Air O2 Flow Rate 4.00 35.00 06/11/20 06/11/20 06/11/20 06/11/20 16:28 16:30 17:00 17:00 Pulse 118 117 96 Resp 32 18 B/P (MAP) 165/132 (143) 165/119 (134) Pulse Ox 99 96 95 O2 Delivery High Flow N/C High Flow N/C High Flow N/C O2 Flow Rate 6.00 6.00 6.00 06/11/20 06/11/20 06/11/20 06/11/20 18:00 18:58 19:00 19:00 Pulse 102 98 97 97 Resp 37 35 B/P (MAP) 164/120 (135) 155/117 (130) Pulse Ox 95 95 94 O2 Delivery High Flow N/C High Flow N/C O2 Flow Rate 6.00 6.00 06/11/20 06/11/20 06/11/20 06/11/20 19:00 19:33 20:00 20:00 Temp 36.8 Pulse Ox 95 99 O2 Delivery High Flow N/C NIV Bilevel NIV Bilevel O2 Flow Rate 6.00 30.00 FiO2 25 06/11/20 06/11/20 06/11/20 06/11/20 20:00 20:16 21:00 21:38 Pulse 80 93 77 Resp 27 22 23 B/P (MAP) 160/114 (129) 143/114 (124) Pulse Ox 98 98 99 O2 Delivery NIV Bilevel NIV Bilevel NIV Bilevel O2 Flow Rate 25.00 25.00 25.00 06/11/20 06/11/20 06/11/20 06/11/20 22:00 22:54 23:00 23:04 Temp 36.8 Pulse 80 96 Resp 8 9 B/P (MAP) 150/102 (118) 136/107 (117) Pulse Ox 98 98 99 O2 Delivery NIV Bilevel High Flow N/C High Flow N/C High Flow N/C O2 Flow Rate 25.00 4.00 4.00 4.00 06/12/20 06/12/20 06/12/20 06/12/20 00:00 00:11 01:00 01:00 Pulse 82 77 77 Resp 28 12 B/P (MAP) 144/107 (119) 142/98 (113) Pulse Ox 97 98 O2 Delivery High Flow N/C High Flow N/C High Flow N/C O2 Flow Rate 4.00 2.00 2.00 06/12/20 06/12/20 06/12/20 06/12/20 02:00 02:38 03:00 03:49 Pulse 79 73 Resp 23 B/P (MAP) 142/111 (121) 140/103 (115) Pulse Ox 97 98 99 99 O2 Delivery High Flow N/C High Flow N/C High Flow N/C High Flow N/C O2 Flow Rate 2.00 2.00 2.00 2.00 06/12/20 06/12/20 06/12/20 06/12/20 03:52 04:00 05:00 05:23 Temp 36.3 Pulse 72 70 Resp 22 21 B/P (MAP) 143/108 (120) 134/109 (117) Pulse Ox 98 99 O2 Delivery High Flow N/C High Flow N/C Room Air O2 Flow Rate 2.00 2.00 06/12/20 06:00 Pulse 69 Resp 21 B/P (MAP) 144/105 (118) Pulse Ox 93 O2 Delivery High Flow N/C O2 Flow Rate 2.00 Capillary Refill : Less Than 3 SecondsLess Than 3 Seconds General Appearance: mild distress (as of 1709 in the afternoon on June 11) Eyes: Bilateral Eye Normal Inspection HEENT: pharynx normal Neck: supple Respiratory: lungs clear Cardiovascular: regular rate, rhythm Gastrointestinal: soft Rectal: deferred Back: normal inspection Extremities: normal range of motion, no pedal edema Neurologic/Psychiatric: oriented x 3 Skin: normal color Assessment/Plan Assessment/Plan Admission Dx 1. Acute respiratory distresspneumonitis versus pulmonary edema 2. Hypertension urgency 3. Elevated BNP 4. Elevated d-dimer 5. Thrombocytosis 6. Increased troponin 7. Anemia 8. Mastitis with what appears to be abscess left breast Admission Status: Inpatient Order (span 2 midnights) Reason for Inpatient Admission: patient admitted to the intensive care unit for further pulmonary and cardiac workup. She initially was placed on BiPAP but as of afternoon she is off BiPAP and breathing on her own area did she will also seek surgery for the abscess to the left breast. Assessment & Plan 1. Acute respiratory distresspneumonitis versus pulmonary edema -ICU admission -She has received Lasix in the ED with good urine output and appears to be improved with regard to respiratory effort and off the BiPAP currently -She has been placed on vancomycin and Zosyn -Blood cultures pending 2. Hypertension urgency -She has received labetalol 20 units and 40 units through the ED. She has also received hydralazine 5 mg and does have available 10 mg hydralazine every 6 hours as needed for elevated systolic above 160. -She has also been started on amlodipine 10 mg daily by cardiology. 3. Elevated BNP -Echocardiogram has been performed but results are pending 4. Elevated d-dimer -pulmonary consultation 5. Thrombocytosis -Monitor platelet count in the a.m. 6. Increased troponin -Cardiology consultation 7. Anemia -monitor and transfuse if hemoglobin does drop lower 8. Mastitis with what appears to be abscess left breast -Surgery consultation most likely will need further I&D JAN KHAN MD Jun 11, 2020 17:40
--- NOTE | 2020-06-11 18:25 | Consultation - Surgery ---
History of Present Illness History of Present Illness Patient Consulted On(stanley/time) 06/11/20 18:16 Time Seen by Provider: 17:23 Reason for Visit: Dyspnea, preeclampsia History of Present Illness Surgery asked to consult regarding Mastitis with abscess. HPI per Dr. Alexandra: 25-year-old female presents to the emergency department today with a chief complaint of shortness of breath and coughing. Patient states she woke up around 5:00 this morning with significant cough and progressive shortness of breath throughout the morning. Patient denies any pain. She denies any significant swelling in her lower extremities. She has no fevers chills, sore throat, earaches, runny nose or congestion. Patient has recently been being treated for mastitis, is on clindamycin. I saw this patient 3 days ago and she appeared well except for her mastitis. Patient denies chest pain. She denies nausea. She states that she has had profuse sweating. No headaches, vision changes. No changes in urination. Patient is approximately 6 weeks a normal spontaneous vaginal delivery on April 30. She tells me that she had mildly elevated blood pressures the day after delivery but did not require medications to control her blood pressures. When I spoke to pt this evening she stated her breast "got congested" around 2-3 weeks ago, she tried everything for that. Unfortunately, that didn't work and then she was told to "bind" it; which made it worse. Went to the ER and they told her to try and pump it out; which also did not work. She states the left breast was at least twice the size of right, lots of redness and described a 10 out of 10 pain that was only relieved when it spontaneously opened yesterday. She states no one has gotten a culture of the fluid. Allergies and Home Medications Allergies Coded Allergies: No Known Drug Allergies (Unverified , 05/26/16) Home Medications Hydrocodone/Acetaminophen 1 Each Tablet, 1 TAB PO Q4H PRN for PAIN-MODERATE (5- 7) Prescribed by: DUNCAN MORALES on 06/09/20 0212 Ibuprofen 600 Mg Tablet, 600 MG PO Q6HR PRN for CRAMPS Prescribed by: MARK STORM on 05/01/20 1204 Vit W-Ca,Fe,FA(<1 mg) 1 Each Tablet, 1 EACH PO DAILY, (Reported) Patient Home Medication List Home Medication List Reviewed: Yes Past Vtlijqf-Zncgwa-Wczgot Hx Patient Social History Smoking Status: Never a Smoker 2nd Hand Smoke Exposure: No Recent Hopitalizations: No Alcohol Use?: No Immunizations Up To Date Tetanus Booster (TDap): Less than 5yrs Date of Influenza Vaccine: Jan 16, 2021 Seasonal Allergies Seasonal Allergies: No Surgeries History of Surgeries: Yes (BILATERAL OVARIAN CYSTS REMOVED WITH APPY 05/2016) Surgeries: Appendectomy Respiratory History of Respiratory Disorde: Yes Respiratory Disorders: Asthma Cardiovascular History of 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, Valvular Heart Disease Neurological History of Neurological Disord: No Reproductive System : No Hx Reproductive Disorders: No Sexually Transmitted Disease: No HIV/AIDS: Yes Female Reproductive Disorders: Ovarian Cyst Genitourinary History of Genitourinary Disor: Yes Genitourinary Disorders: Kidney Infection, Bladder Infection Gastrointestinal History of Gastrointestinal Di: No Musculoskeletal History of Musculoskeletal Dis: No Endocrine History of Endocrine Disorders: No HEENT History of HEENT Disorders: No Cancer History of Cancer: No Psychosocial History of Psychiatric Problem: Yes Behavioral Health Disorders: Anxiety Integumentary History of Skin or Integumenta: No Blood Transfusions History of Blood Disorders: No Adverse Reaction to a Blood Tr: No Family Medical History Significant Family History: Heart Disease (mother), Cancer (denies), Hypertens ion (mother) Review of Systems-General Constitutional: malaise, weakness EENTM: No blurred vision, No double vision, No mouth pain, No mouth swelling, No epistaxis Respiratory: cough, dyspnea on exertion; No phlegm; short of breath Cardiovascular: No chest pain, No Hx of Intervention, No palpitations Gastrointestinal: No abdominal pain, No nausea, No vomiting Genitourinary: No dysuria, No frequency, No hematuria Musculoskeletal: No joint pain, No joint swelling, No muscle pain, No muscle stiffness Skin: change in color; No change in hair/nails; other (erythema and swelling breast) Psychiatric/Neurological: Anxiety; Denies Depressed, Denies Pre-Existing Deficit, Denies Seizure, Denies Tremors Physical Exam-General Problems Physical Exam Vital Signs Vital Signs - First Documented Capillary Refill : Less Than 3 SecondsLess Than 3 Seconds General Appearance: WD/WN, mild distress (secondary to pain) Eyes: Bilateral Eye PERRL, Bilateral Eye EOMI HEENT: pharynx normal; No scleral icterus (R), No scleral icterus (L) Neck: non-tender, full range of motion, supple, normal inspection Respiratory: respiratory distress (mild - improved with vapotherm), decreased breath sounds, accessory muscle use, other (tachypnea) Cardiovascular: no murmur, tachycardia Gastrointestinal: non tender, soft, no organomegaly, no pulsatile mass Back: no CVA tenderness, no vertebral tenderness Extremities: non-tender, no calf tenderness, normal capillary refill Neurologic/Psychiatric: ekg monitor tech II-XII nml as tested, no motor/sensory deficits, alert, normal mood/affect, oriented x 3 Skin: other (left breast is firm, tender, small 4mm opening between 12 and 1 o'clock, purulent fluid coming out of opening) Lymphatic: no adenopathy (neck, supraclavicular, axillary or groin) Data Review Labs Laboratory Tests 06/11/20 11:59: White Blood Count 9.7, Red Blood Count 3.71L, Hemoglobin 8.6L, Hematocrit 29L, Mean Corpuscular Volume 79L, Mean Corpuscular Hemoglobin 23L, Mean Corpuscular Hemoglobin Concent 30L, Red Cell Distribution Width 18.6H, Platelet Count 985H, Mean Platelet Volume 9.0, Immature Granulocyte % (Auto) 1, Neutrophils (%) (Auto) 73, Lymphocytes (%) (Auto) 15, Monocytes (%) (Auto) 5, Eosinophils (%) (Auto) 5, Basophils (%) (Auto) 1, Neutrophils # (Auto) 7.0, Lymphocytes # (Auto) 1.5, Monocytes # (Auto) 0.5, Eosinophils # (Auto) 0.5H, Basophils # (Auto) 0.1, Immature Granulocyte # (Auto) 0.1, Prothrombin Time 12.9, INR Comment 0.9, Activated Partial Thromboplast Time 33, D-Dimer 2.00H, Sodium Level 141, Pot assium Level 3.7, Chloride Level 102, Carbon Dioxide Level 27, Anion Gap 12, Blood Urea Nitrogen 7, Creatinine 0.84, Estimat Glomerular Filtration Rate > 60, BUN/Creatinine Ratio 8, Glucose Level 80, Uric Acid 4.5, Calcium Level 8.7, Corrected Calcium 9.3, Magnesium Level 2.1, Total Bilirubin 0.3, Aspartate Amino Transf (AST/SGOT) 14, Alanine Aminotransferase (ALT/SGPT) 8, Alkaline Phosphatase 120, Lactate Dehydrogenase 246H, Troponin I 0.037H, B-Type [place] riuretic Peptide 1068.3H, Total Protein 7.5, Albumin 3.2, Procalcitonin 0.04 06/11/20 12:30: Coronavirus 2019 (BETTY) Negative 06/11/20 12:37: Blood Gas Puncture Site LTWRIST, Blood Gas Patient Temperature 97.5, Arterial Blood pH 7.44H, Arterial Blood Partial Pressure CO2 39, Arterial Blood Partial Pressure O2 55L, Arterial Blood HCO3 26, Arterial Blood Total CO2 27.3, Arterial Blood Oxygen Saturation 86L, Arterial Blood Base Excess 2.1, Jason Test POS, Blood Gas Ventilator Setting NO, Blood Gas Inspired Oxygen 6L 06/11/20 15:03: 06/11/20 16:55: Urine Color YELLOW, Urine Clarity CLEAR, Urine pH 7.0, Urine Specific [place] 1.015L, Urine Protein NEGATIVE, Urine Glucose (UA) NEGATIVE, Urine Ketones NEGATIVE, Urine Nitrite NEGATIVE, Urine Bilirubin NEGATIVE, Urine Urobilinogen 0.2, Urine Leukocyte Esterase NEGATIVE, Urine RBC (Auto) 2+H, Urine RBC NONE, Urine WBC 0-2, Urine Squamous Epithelial Cells 2-5, Urine Crystals NONE, Urine Bacteria MODERATEH, Urine Casts PRESENT, Urine Hyaline Casts 2-5H, Urine Mucus N, Urine Culture Indicated YES Microbiology 06/11/20 Influenza Types A,B Antigen (PIERRE) - Final, Complete Radiology Date of Exam:06/11/20 CT ANGIO CHEST W PROCEDURE: CT angiography of the chest with contrast. TECHNIQUE: Multiple contiguous axial images were obtained through the chest after uneventful bolus administration of intravenous contrast. 3D reconstructed CTA MIP acquisitions were also performed. Auto Exposure Controls were utilized during the CT exam to meet ALARA standards for radiation dose reduction. DATE: June 11, 2020. COMPARISON: Chest radiograph June 11, 2020. INDICATION: 25-year-old female, shortness of breath. Positive d-dimer. Hypertension. FINDINGS: There is multifocal bilateral fairly nodular an additional less well-defined alveolar consolidation. Consolidation is more notable in the right lung than the left. There is no pneumothorax. There is a small right pleural effusion. There is no sizable left pleural effusion. There is no identified pulmonary embolus. The main pulmonary artery is normal in caliber. The heart is not enlarged. There is no pericardial effusion. There is no evidence of aortic dissection. There is no identified abnormally enlarged mediastinal or hilar lymph node. There are asymmetrically prominent and abnormally enlarged left axillary lymph nodes measuring up to 12 mm in short axis for example on axial image 49. There is a large gas and fluid containing masslike abnormality in the left breast measuring approximately 7.6 x 4.1 cm in axial dimension. This abnormal gas may extend to the skin surface. This is incompletely imaged. Correlation with physical exam and patient history is needed. The imaged portions of the upper abdomen are unremarkable. There is no identified acute bony abnormality. IMPRESSION: CT CHEST. 1. Multifocal nodular and additional ill-defined airspace consolidation involving the lungs bilaterally with more involvement of the right lung compared to the left. Multifocal pneumonia including atypical infectious etiologies is in the differential diagnosis. Other alveolar consolidative processes and causes of an acute pneumonitis would also be considered. 2. Large gas and fluid containing-like mass abnormality in the left breast measuring approximately 7.6 x 4.1 cm in axial extent with areas of abnormal gas potentially extending to the skin surface. Recommend correlation with physical exam and with patient history. This may potentially reflect a large abscess. 3. No identified pulmonary embolus. 4. Small right pleural effusion. Dictated by: Dictated on workstation # [id number] Dict: 06/11/20 1403 Trans: 06/11/20 1710 [facility] [place] [id number] Interpreted by: ENRIQUE RIZVI MD Electronically signed by: ENRIQUE RIZVI MD 06/11/20 4075 Assessment/Plan Assessment/Plan Assessment/Plan Left Breast Mastitis with Abscess Tachycardia Tachypnea Hypoxia NSTEMI Pt is a 25 yo post- female who is having increasing Mastitis and has confirmed abscess of left breast on CT; I reviewed it myself and saw a large a bscess collection and a lot of air under the skin. CTA of chest did not show a PE. Her heart and lung issues are most likely related to post- problems. She is currently PUI (rapid was negative) and we are waiting on her PCR test. The plan is NPO after MN, IV fluids, O2 increase as needed to maintain pulse ox, pain control, wound culture and IV ABX. Should continue the ABX she is on for now; change if they don't treat cultured bacteria. She will need a formal incision and drainage, probably with debridement of any necrotic tissue and packing of wound. She will then need daily dressing changes and flushing of cavity. We will wait until we get confirmatory negative Covid test; hopefully can do surgery tomorrow. I explained all of this to pt and we went over possible complications of surgery; not limited to pain, bleeding, infection, scar and need for further procedure. I did explain how we would have to leave the incision open; this is the best way to let it heal. All questions answered to her satisfaction. AJAY WEST DO Jun 11, 2020 18:25
[2020-06-11 18:58] VITALS: BP 162/116
[2020-06-11] MEDS ORDERED: RT-ALBUTEROL INHALER HFA (VENTOLIN HFA) 18 GM IH PRN (19:45)
[2020-06-11] MEDS: CARVEDILOL 6.25 MG (COREG) TAB PO SCH (20:13)
[2020-06-11] MEDS: SACUBITRIL/VALSARTAN 24/26 MG (ENTRESTO) TABLET PO SCH (20:13)
[2020-06-11] MEDS: CATHETER FLUSH 10 ML SYR IV SCH (20:31)
[2020-06-11] MEDS ORDERED: FUROSEMIDE 40 MG/4 ML INJ (LASIX) ONE (20:41)
[2020-06-11 21:38] VITALS: BP 149/103
[2020-06-11] MEDS: RT-ALBUTEROL INHALER HFA (VENTOLIN HFA) 18 GM IH SCH (21:38)
[2020-06-11] MEDS: VANCOMYCIN 750 MG/NS 250 ML IVPB IV SCH ×2 (22:49)
[2020-06-11] MEDS: PIPERACILLIN/TAZOBACTAM (BULK) 4.5 GM in NS (IVPB) 100 ML IV SCH (22:49)
[2020-06-12] VITALS (8 sets, daily range): BP systolic 98–120; BP diastolic 62–86
[2020-06-12] MEDS: RT-ALBUTEROL INHALER HFA (VENTOLIN HFA) 18 GM IH SCH ×4 (02:37→20:42)
[2020-06-12 03:57] LABS: BASOPHILS # (AUTO) 0.1 10^3/uL (0.0-0.1); BASOPHILS % (AUTO) 1 % (0-10); EOSINOPHILS # (AUTO) 0.3 10^3/uL (0.0-0.3); EOSINOPHILS % (AUTO) 4 % (0-10); HEMATOCRIT 32 % (35-52); HEMOGLOBIN 9.3 g/dL (11.5-16.0); LYMPHOCYTES # (AUTO) 1.5 10^3/uL (1.0-4.0); LYMPHOCYTES % (AUTO) 16 % (12-44); MEAN CORPUSCULAR HEMOGLOBIN 23 pg (25-34); MEAN CORPUSCULAR HGB CONC 29 g/dL (32-36); MEAN CORPUSCULAR VOLUME 78 fL (80-99); MEAN PLATELET VOLUME 8.7 fL (9.0-12.2); MONOCYTES # (AUTO) 0.6 10^3/uL (0.0-1.0); MONOCYTES % (AUTO) 6 % (0-12); NEUTROPHILS # (AUTO) 7.1 10^3/uL (1.8-7.8); NEUTROPHILS % (AUTO) 73 % (42-75); WHITE BLOOD COUNT 9.7 10^3/uL (4.3-11.0)
[2020-06-12 04:09] LABS: PLATELET COUNT 1095 10^3/uL (130-400)
[2020-06-12 04:26] LABS: CHLORIDE 100 MMOL/L (98-107); POTASSIUM 4.2 MMOL/L (3.6-5.0); SODIUM 139 MMOL/L (135-145)
[2020-06-12 04:27] LABS: CALCIUM 8.8 MG/DL (8.5-10.1)
[2020-06-12 04:28] LABS: GLUCOSE 99 MG/DL (70-105)
[2020-06-12 04:29] LABS: CARBON DIOXIDE 25 MMOL/L (21-32)
[2020-06-12 04:31] LABS: PHOSPHORUS 4.7 MG/DL (2.3-4.7)
[2020-06-12 04:32] LABS: CREATININE SERUM 0.86 MG/DL (0.60-1.30); GFR ESTIMATED > 60
--- NOTE | 2020-06-12 04:32 | Diagnostic Imaging Report ---
Indication: Shortness of breath Portable chest 4:02 AM Comparison with previous day shows considerable improvement of the perihilar pulmonary infiltrates. There are no effusions or pneumothoraces. IMPRESSION: Significantly improved bilateral perihilar infiltrates. Dictated by: Dictated on workstation # [id number]
[2020-06-12 04:33] LABS: BUN/CREATININE RATIO 8
[2020-06-12 04:35] LABS: MAGNESIUM 2.8 MG/DL (1.6-2.4)
[2020-06-12 05:02] LABS: FREE T4 (FREE THYROXINE) 1.23 NG/DL (0.70-1.48)
--- NOTE | 2020-06-12 05:13 | Pulmonary Progress Note ---
Subjective Time Seen by a Provider: 05:02 Subjective/Events-last exam Plan is for surgery today for I&D of left breast. Sepsis Event Evaluation Height, Weight, BMI Height: 5'2.00" Weight: 130lbs. 0oz. [id number]; 27.48 BMI Method:Stated Exam Exam Vital Signs Date Time Temp Pulse Resp B/P (MAP) Pulse Ox O2 Delivery O2 Flow Rate FiO2 06/12/20 04:00 72 22 143/108 (120) 98 High Flow N/C 2.00 06/12/20 03:52 36.3 06/12/20 03:49 99 High Flow N/C 2.00 06/12/20 03:00 73 23 140/103 (115) 99 High Flow N/C 2.00 06/12/20 02:38 98 High Flow N/C 2.00 06/12/20 02:00 79 21 142/111 (121) 97 High Flow N/C 2.00 06/12/20 01:00 77 12 142/98 (113) 98 High Flow N/C 2.00 06/12/20 01:00 77 06/12/20 00:11 High Flow N/C 2.00 06/12/20 00:00 82 28 144/107 (119) 97 High Flow N/C 4.00 06/11/20 23:04 99 High Flow N/C 4.00 06/11/20 23:00 96 9 136/107 (117) 98 High Flow N/C 4.00 06/11/20 22:54 36.8 High Flow N/C 4.00 06/11/20 22:00 80 8 150/102 (118) 98 NIV Bilevel 25.00 06/11/20 21:38 77 23 99 25.00 06/11/20 21:00 93 22 143/114 (124) 98 NIV Bilevel 25.00 06/11/20 20:16 NIV Bilevel 25.00 06/11/20 20:00 80 27 160/114 (129) 98 NIV Bilevel 06/11/20 20:00 99 NIV Bilevel 25 06/11/20 20:00 36.8 06/11/20 19:33 NIV Bilevel 30.00 06/11/20 19:00 95 High Flow N/C 6.00 06/11/20 19:00 97 06/11/20 19:00 97 35 155/117 (130) 94 High Flow N/C 6.00 06/11/20 18:58 98 95 06/11/20 18:00 102 37 164/120 (135) 95 High Flow N/C 6.00 06/11/20 17:00 95 High Flow N/C 6.00 06/11/20 17:00 96 18 165/119 (134) 96 High Flow N/C 6.00 06/11/20 16:30 117 32 165/132 (143) 99 High Flow N/C 6.00 06/11/20 16:28 118 06/11/20 16:17 85 20 159/118 98 06/11/20 13:36 85 29 98 35.00 06/11/20 11:45 Room Air 06/11/20 11:45 36.1 127 18 167/131 (143) 95 Nasal Cannula 4.00 I & O 06/12/20 06:59 Intake Total 500 ml Output Total 2625 ml Balance -2125 ml Height & Weight Height: 5'2.00" Weight: 130lbs. 0oz. 58.452643ef; 27.48 BMI Method:Stated General Appearance: Anxious, Mild Distress HEENT: PERRL/EOMI Neck: Non Tender, Supple Respiratory: Chest Non Tender, Respiratory Distress Cardiovascular: Regular Rate, Rhythm; No JVD Capillary Refill: Less Than 3 Seconds Gastrointestinal: non tender, soft, no organomegaly, no pulsatile mass Results Lab Laboratory Tests 06/11/20 11:59 06/12/20 03:42 Assessment/Plan Assessment/Plan Acute respiratory failure r/o -Echo pending -Lasix -- pt was given lasix while in ED -COVID is negative -Influenza is negativae cardiomyopathy with EF 25-30% -Life vest pending -Plan is for surgery today for I&D of left breast NSTEMI -Cardiology consulted HTN -monitor Mastitis with left breast abscess -Continue Abx from out patient -Consult surgery - Anemia -Monitor DVT ppx -Lovenox if ok with surgery PABLO HIGGINS DO Jun 12, 2020 05:13
[2020-06-12] MEDS: PIPERACILLIN/TAZOBACTAM (BULK) 4.5 GM in NS (IVPB) 100 ML IV SCH ×3 (05:20→23:53)
[2020-06-12] MEDS: VANCOMYCIN 750 MG/NS 250 ML IVPB IV SCH ×4 (05:20→15:19)
[2020-06-12] MEDS: CATHETER FLUSH 10 ML SYR IV SCH ×3 (05:21→20:15)
--- NOTE | 2020-06-12 06:58 | Progress Note - Surgery ---
ALVARO CLAUDIO,MED STUDENT 06/12/20 0658: Subjective Date Seen by a Provider: Jun 12, 2020 Time Seen by a Provider: 06:17 Subjective/Events-last exam Pt seen and examined this morning. She is sleeping when I enter the room. She states she is feeling much better but does have a headache that she feels is worse behind her left eye. Denies chest pain or SOB. Is on room air and 02 saturation 97%. Does report pain in her left breast unchanged from yesterday. Has been NPO since midnight Review of Systems General: No Chills, No Night Sweats HEENT: Head Aches; No Visual Changes Pulmonary: No Dyspnea, No Cough Cardiovascular: No: Chest Pain, Edema Gastrointestinal: No: Nausea, Vomiting, Abdominal Pain Musculoskeletal: other (pain in left breast) Neurological: No: Weakness, Numbness Objective Exam Vital Signs Date Time Temp Pulse Resp B/P (MAP) Pulse Ox O2 Delivery O2 Flow Rate FiO2 06/12/20 06:00 69 21 144/105 (118) 93 High Flow N/C 2.00 06/12/20 05:23 Room Air 06/12/20 05:00 70 21 134/109 (117) 99 High Flow N/C 2.00 06/12/20 04:00 72 22 143/108 (120) 98 High Flow N/C 2.00 06/12/20 03:52 36.3 06/12/20 03:49 99 High Flow N/C 2.00 06/12/20 03:00 73 23 140/103 (115) 99 High Flow N/C 2.00 06/12/20 02:38 98 High Flow N/C 2.00 06/12/20 02:00 79 21 142/111 (121) 97 High Flow N/C 2.00 06/12/20 01:00 77 12 142/98 (113) 98 High Flow N/C 2.00 06/12/20 01:00 77 06/12/20 00:11 High Flow N/C 2.00 06/12/20 00:00 82 28 144/107 (119) 97 High Flow N/C 4.00 06/11/20 23:04 99 High Flow N/C 4.00 06/11/20 23:00 96 9 136/107 (117) 98 High Flow N/C 4.00 06/11/20 22:54 36.8 High Flow N/C 4.00 06/11/20 22:00 80 8 150/102 (118) 98 NIV Bilevel 25.00 06/11/20 21:38 77 23 99 25.00 06/11/20 21:00 93 22 143/114 (124) 98 NIV Bilevel 25.00 06/11/20 20:16 NIV Bilevel 25.00 06/11/20 20:00 80 27 160/114 (129) 98 NIV Bilevel 06/11/20 20:00 99 NIV Bilevel 25 06/11/20 20:00 36.8 06/11/20 19:33 NIV Bilevel 30.00 06/11/20 19:00 95 High Flow N/C 6.00 06/11/20 19:00 97 06/11/20 19:00 97 35 155/117 (130) 94 High Flow N/C 6.00 06/11/20 18:58 98 95 06/11/20 18:00 102 37 164/120 (135) 95 High Flow N/C 6.00 06/11/20 17:00 95 High Flow N/C 6.00 06/11/20 17:00 96 18 165/119 (134) 96 High Flow N/C 6.00 06/11/20 16:30 117 32 165/132 (143) 99 High Flow N/C 6.00 06/11/20 16:28 118 06/11/20 16:17 85 20 159/118 98 06/11/20 13:36 85 29 98 35.00 06/11/20 11:45 Room Air 06/11/20 11:45 36.1 127 18 167/131 (143) 95 Nasal Cannula 4.00 I & O 06/12/20 06:59 Intake Total 500 ml Output Total 3075 ml Balance -2575 ml Capillary Refill : Less Than 3 SecondsLess Than 3 Seconds General Appearance: No Apparent Distress, WD/WN, Mild Distress HEENT: PERRL/EOMI, Moist Mucous Membranes Neck: Full Range of Motion Respiratory: Lungs Clear, No Accessory Muscle Use, No Respiratory Distress; No Crackles Cardiovascular: Regular Rate, Rhythm Peripheral Pulses: 2+ Dorsalis Pedis (R), 2+ Left Dors-Pedis (L), 2+ Radial Pulses (R), 2+ Radial Pulses (L) Gastrointestinal: non tender, soft; No distended Extremity: No Calf Tenderness, No Pedal Edema Neurologic/Psychiatric: Alert, Oriented x3, No Motor/Sensory Deficits, Normal Mood/Affect Skin: Normal Color, Warm/Dry, Other (dressing in place to left breast, c/d/i) Results Lab Laboratory Tests 06/11/20 11:59: White Blood Count 9.7, Red Blood Count 3.71L, Hemoglobin 8.6L, Hematocrit 29L, Mean Corpuscular Volume 79L, Mean Corpuscular Hemoglobin 23L, Mean Corpuscular Hemoglobin Concent 30L, Red Cell Distribution Width 18.6H, Platelet Count 985H, Mean Platelet Volume 9.0, Immature Granulocyte % (Auto) 1, Neutrophils (%) (Auto) 73, Lymphocytes (%) (Auto) 15, Monocytes (%) (Auto) 5, Eosinophils (%) (Auto) 5, Basophils (%) (Auto) 1, Neutrophils # (Auto) 7.0, Lymphocytes # (Auto) 1.5, Monocytes # (Auto) 0.5, Eosinophils # (Auto) 0.5H, Basophils # (Auto) 0.1, Immature Granulocyte # (Auto) 0.1, Prothrombin Time 12.9, INR Comment 0.9, Activated Partial Thromboplast Time 33, D-Dimer 2.00H, Sodium Level 141, Potassium Level 3.7, Chloride Level 102, Carbon Dioxide Level 27, Anion Gap 12, Blood Urea Nitrogen 7, Creatinine 0.84, Estimat Glomerular Filtration Rate > 60, BUN/Creatinine Ratio 8, Glucose Level 80, Uric Acid 4.5, Calcium Level 8.7, Corrected Calcium 9.3, Magnesium Level 2.1, Total Bilirubin 0.3, Aspartate Amino Transf (AST/SGOT) 14, Alanine Aminotransferase (ALT/SGPT) 8, Alkaline Phosphatase 120, Lactate Dehydrogenase 246H, Troponin I 0.037H, B-Type Natriuretic Peptide 1068.3H, Total Protein 7.5, Albumin 3.2, Procalcitonin 0.04 06/11/20 12:30: Coronavirus 2019 (BETTY) Negative 06/11/20 12:37: Blood Gas Puncture Site LTWRIST, Blood Gas Patient Temperature 97.5, Arterial Blood pH 7.44H, Arterial Blood Partial Pressure CO2 39, Arterial Blood Partial Pressure O2 55L, Arterial Blood HCO3 26, Arterial Blood Total CO2 27.3, Arterial Blood Oxygen Saturation 86L, Arterial Blood Base Excess 2.1, Jason Test POS, Blood Gas Ventilator Setting NO, Blood Gas Inspired Oxygen 6L 06/11/20 15:03: Coronavirus (COVID-19)(PCR) Negative 06/11/20 16:55: Urine Color YELLOW, Urine Clarity CLEAR, Urine pH 7.0, Urine Specific [place] 1.015L, Urine Protein NEGATIVE, Urine Glucose (UA) NEGATIVE, Urine Ketones NEGATIVE, Urine Nitrite NEGATIVE, Urine Bilirubin NEGATIVE, Urine Urobilinogen 0.2, Urine Leukocyte Esterase NEGATIVE, Urine RBC (Auto) 2+H, Urine RBC NONE, Urine WBC 0-2, Urine Squamous Epithelial Cells 2-5, Urine Crystals NONE, Urine Bacteria MODERATEH, Urine Casts PRESENT, Urine Hyaline Casts 2-5H, Urine Mucus N, Urine Culture Indicated YES 06/12/20 03:42: White Blood Count 9.7, Red Blood Count 4.10, Hemoglobin 9.3L, Hematocrit 32L, Mean Corpuscular Volume 78L, Mean Corpuscular Hemoglobin 23L, Mean Corpuscular Hemoglobin Concent 29L, Red Cell Distribution Width 18.6H, Platelet Count 1095*H , Mean Platelet Volume 8.7L, Immature Granulocyte % (Auto) 1, Neutrophils (%) (Auto) 73, Lymphocytes (%) (Auto) 16, Monocytes (%) (Auto) 6, Eosinophils (%) (Auto) 4, Basophils (%) (Auto) 1, Neutrophils # (Auto) 7.1, Lymphocytes # (Auto) 1.5, Monocytes # (Auto) 0.6, Eosinophils # (Auto) 0.3, Basophils # (Auto) 0.1, Immature Granulocyte # (Auto) 0.1, Sodium Level 139, Potassium Level 4.2, Chloride Level 100, Carbon Dioxide Level 25, Anion Gap 14, Blood Urea Nitrogen 7, Creatinine 0.86, Estimat Glomerular Filtration Rate > 60, BUN/Creatinine Ratio 8, Glucose Level 99, Calcium Level 8.8, Phosphorus Level 4.7, Magnesium Level 2.8H, Thyroid Stimulating Hormone (TSH) 1.76, Free Thyroxine 1.23 Microbiology 06/11/20 Influenza Types A,B Antigen (PIERRE) - Final, Complete Assessment/Plan Assessment/Plan Assessment/Plan Left Breast Mastitis with Abscess Cardiomyopathy- echo showed EF of 25-30% NSTEMI Thrombocytosis, platelets elevated to [id number] this AM Plan for OR today for I&D and debridement of left breast abscess. COVID PCR came back negative Continue IV fluids, pain control and IV abx Obtain wound culture Monitor O2 sats and supplemental oxygen as needed Heme/Onc consulted for thrombocytosis AJAY PHIPPS DO 06/12/20 1112: Subjective Time Seen by a Provider: 07:45 Subjective/Events-last exam Pt seen and examined, states she is feeling better and breathing is better. Breast pain is the same. Review of Systems General: No Chills, No Night Sweats HEENT: Head Aches; No Visual Changes Pulmonary: No Dyspnea, No Cough Cardiovascular: No: Chest Pain, Edema Gastrointestinal: No: Nausea, Vomiting, Abdominal Pain Objective Exam General Appearance: No Apparent Distress, WD/WN HEENT: PERRL/EOMI, Moist Mucous Membranes Respiratory: Lungs Clear, Normal Breath Sounds, No Accessory Muscle Use, No Respiratory Distress Cardiovascular: Regular Rate, Rhythm, No Murmur Gastrointestinal: non tender, soft; No distended Skin: Other (dressing in place to left breast, c/d/i) Assessment/Plan Assessment/Plan Assessment/Plan Left Breast Mastitis with Abscess Cardiomyopathy- echo showed EF of 25-30% NSTEMI Thrombocytosis, platelets elevated to [id number] this AM Plan for OR today for I&D and debridement of left breast abscess. COVID PCR came back negative Continue IV fluids, pain control and IV abx Obtain wound culture Monitor O2 sats and supplemental oxygen as needed Heme/Onc consulted for thrombocytosis Supervisory-Addendum Brief Verification & Attestation Participated in pt care: history, MDM, physical Personally performed: exam, history, MDM Care discussed with: Medical Student Procedures: n/a Verification and Attestation of Medical Student E/M Service A medical student performed and documented this service. I then reviewed and verified all information documented by the medical student and made modifications to such information, when appropriate. I personally performed a physical exam, medical decision making and then discussed any differences between the notes and made revisions as necessary to create one note. Ajay Phipps , 06/12/20 , 11:12 ALVARO CLAUDIO,MED STUDENT Jun 12, 2020 06:58 AJAY PHIPPS DO Jun 12, 2020 11:12
[2020-06-12] MEDS ORDERED: ACETAMINOPHEN 325 MG TABLET PO PRN (07:00)
--- NOTE | 2020-06-12 07:10 | Progress Note ---
Subjective Subjective/Events-last exam patient is off BiPAP an breathing with 2 L nasal cannula comfortably. She is not voicing any pain. Objective Exam Last Set of Vital Signs Vital Signs Date Time Temp Pulse Resp B/P (MAP) Pulse Ox O2 Delivery O2 Flow Rate FiO2 06/12/20 06:00 69 21 144/105 (118) 93 High Flow N/C 2.00 06/12/20 03:52 36.3 06/11/20 20:00 25 Capillary Refill : Less Than 3 SecondsLess Than 3 Seconds I&O Intake and Output 06/12/20 00:00 Intake Total 500 ml Output Total 1175 ml Balance -675 ml Intake Oral 100 ml IV Total 400 ml Output Urine Total 1175 ml Daily Weight Change No General: No Acute Distress Neck: Supple Lungs: Clear to Auscultation Heart: Regular Rate Abdomen: Soft Skin: No Rashes Psych/Mental Status: Mental Status NL Results/Procedures Lab Laboratory Tests 06/11/20 11:59: White Blood Count 9.7, Red Blood Count 3.71L, Hemoglobin 8.6L, Hematocrit 29L, Mean Corpuscular Volume 79L, Mean Corpuscular Hemoglobin 23L, Mean Corpuscular Hemoglobin Concent 30L, Red Cell Distribution Width 18.6H, Platelet Count 985H, Mean Platelet Volume 9.0, Immature Granulocyte % (Auto) 1, Neutrophils (%) (Auto) 73, Lymphocytes (%) (Auto) 15, Monocytes (%) (Auto) 5, Eosinophils (%) (Auto) 5, Basophils (%) (Auto) 1, Neutrophils # (Auto) 7.0, Lymphocytes # (Auto) 1.5, Monocytes # (Auto) 0.5, Eosinophils # (Auto) 0.5H, Basophils # (Auto) 0.1, Immature Granulocyte # (Auto) 0.1, Prothrombin Time 12.9, INR Comment 0.9, Activated Partial Thromboplast Time 33, D-Dimer 2.00H, Sodium Level 141, Potassium Level 3.7, Chloride Level 102, Carbon Dioxide Level 27, Anion Gap 12, Blood Urea Nitrogen 7, Creatinine 0.84, Estimat Glomerular Filtration Rate > 60, BUN/Creatinine Ratio 8, Glucose Level 80, Uric Acid 4.5, Calcium Level 8.7, Corrected Calcium 9.3, Magnesium Level 2.1, Total Bilirubin 0.3, Aspartate Amino Transf (AST/SGOT) 14, Alanine Aminotransferase (ALT/SGPT) 8, Alkaline Phosphatase 120, Lactate Dehydrogenase 246H, Troponin I 0.037H, B-Type Natriuretic Peptide 1068.3H, Total Protein 7.5, Albumin 3.2, Procalcitonin 0.04 06/11/20 12:30: Coronavirus 2019 (BETTY) Negative 06/11/20 12:37: Blood Gas Puncture Site LTWRIST, Blood Gas Patient Temperature 97.5, Arterial Blood pH 7.44H, Arterial Blood Partial Pressure CO2 39, Arterial Blood Partial Pressure O2 55L, Arterial Blood HCO3 26, Arterial Blood Total CO2 27.3, Arterial Blood Oxygen Saturation 86L, Arterial Blood Base Excess 2.1, Jason Test POS, Blood Gas Ventilator Setting NO, Blood Gas Inspired Oxygen 6L 06/11/20 15:03: Coronavirus (COVID-19)(PCR) Negative 06/11/20 16:55: Urine Color YELLOW, Urine Clarity CLEAR, Urine pH 7.0, Urine Specific [place] 1.015L, Urine Protein NEGATIVE, Urine Glucose (UA) NEGATIVE, Urine Ketones NEGATIVE, Urine Nitrite NEGATIVE, Urine Bilirubin NEGATIVE, Urine Urobilinogen 0.2, Urine Leukocyte Esterase NEGATIVE, Urine RBC (Auto) 2+H, Urine RBC NONE, Urine WBC 0-2, Urine Squamous Epithelial Cells 2-5, Urine Crystals NONE, Urine Bacteria MODERATEH, Urine Casts PRESENT, Urine Hyaline Casts 2-5H, Urine Mucus N, Urine Culture Indicated YES 06/12/20 03:42: White Blood Count 9.7, Red Blood Count 4.10, Hemoglobin 9.3L, Hematocrit 32L, Mean Corpuscular Volume 78L, Mean Corpuscular Hemoglobin 23L, Mean Corpuscular Hemoglobin Concent 29L, Red Cell Distribution Width 18.6H, Platelet Count 1095*H , Mean Platelet Volume 8.7L, Immature Granulocyte % (Auto) 1, Neutrophils (%) (Auto) 73, Lymphocytes (%) (Auto) 16, Monocytes (%) (Auto) 6, Eosinophils (%) (Auto) 4, Basophils (%) (Auto) 1, Neutrophils # (Auto) 7.1, Lymphocytes # (Auto) 1.5, Monocytes # (Auto) 0.6, Eosinophils # (Auto) 0.3, Basophils # (Auto) 0.1, Immature Granulocyte # (Auto) 0.1, Sodium Level 139, Potassium Level 4.2, Chloride Level 100, Carbon Dioxide Level 25, Anion Gap 14, Blood Urea Nitrogen 7, Creatinine 0.86, Estimat Glomerular Filtration Rate > 60, BUN/Creatinine Ratio 8, Glucose Level 99, Calcium Level 8.8, Phosphorus Level 4.7, Magnesium Level 2.8H, Thyroid Stimulating Hormone (TSH) 1.76, Free Thyroxine 1.23 Microbiology 06/11/20 Influenza Types A,B Antigen (PIERRE) - Final, Complete Radiology Date of Exam:06/11/20 CT ANGIO CHEST W PROCEDURE: CT angiography of the chest with contrast. TECHNIQUE: Multiple contiguous axial images were obtained through the chest after uneventful bolus administration of intravenous contrast. 3D reconstructed CTA MIP acquisitions were also performed. Auto Exposure Controls were utilized during the CT exam to meet ALARA standards for radiation dose reduction. DATE: June 11, 2020. COMPARISON: Chest radiograph June 11, 2020. INDICATION: 25-year-old female, shortness of breath. Positive d-dimer. Hypertension. FINDINGS: There is multifocal bilateral fairly nodular an additional less well-defined alveolar consolidation. Consolidation is more notable in the right lung than the left. There is no pneumothorax. There is a small right pleural effusion. There is no sizable left pleural effusion. There is no identified pulmonary embolus. The main pulmonary artery is normal in caliber. The heart is not enlarged. There is no pericardial effusion. There is no evidence of aortic dissection. There is no identified abnormally enlarged mediastinal or hilar lymph node. There are asymmetrically prominent and abnormally enlarged left axillary lymph nodes measuring up to 12 mm in short axis for example on axial image 49. There is a large gas and fluid containing masslike abnormality in the left breast measuring approximately 7.6 x 4.1 cm in axial dimension. This abnormal gas may extend to the skin surface. This is incompletely imaged. Correlation with physical exam and patient history is needed. The imaged portions of the upper abdomen are unremarkable. There is no identified acute bony abnormality. IMPRESSION: CT CHEST. 1. Multifocal nodular and additional ill-defined airspace consolidation involving the lungs bilaterally with more involvement of the right lung compared to the left. Multifocal pneumonia including atypical infectious etiologies is in the differential diagnosis. Other alveolar consolidative processes and causes of an acute pneumonitis would also be considered. 2. Large gas and fluid containing-like mass abnormality in the left breast measuring approximately 7.6 x 4.1 cm in axial extent with areas of abnormal gas potentially extending to the skin surface. Recommend correlation with physical exam and with patient history. This may potentially reflect a large abscess. 3. No identified pulmonary embolus. 4. Small right pleural effusion. Dictated by: Dictated on workstation # [id number] Dict: 06/11/20 1403 Trans: 06/11/20 1710 [facility] [id number] Interpreted by: ENRIQUE RIZVI MD Electronically signed by: ENRIQUE RIZVI MD 06/11/20 5420 Assessment/Plan Assessment/Plan Admission Status: Inpatient Order (span 2 midnights) Assessment & Plan 1. Acute respiratory distresspneumonitis versus pulmonary edema -ICU admission -She has received Lasix in the ED with good urine output and appears to be improved with regard to respiratory effort and off the BiPAP currently -She has been placed on vancomycin and Zosyn -Blood cultures pending 06/12 -echocardiogram revealed patient has cardiomyopathy -She is currently on Carvidiol and receiving 40 mg Lasix daily -Cardiology consulted 2. Hypertension urgency -She has received labetalol 20 units and 40 units through the ED. She has also received hydralazine 5 mg and does have available 10 mg hydralazine every 6 hours as needed for elevated systolic above 160. -She has also been started on amlodipine 10 mg daily by cardiology. 3. Elevated BNP -Echocardiogram has been performed but results are pending 4. Elevated d-dimer -pulmonary consultation 5. Thrombocytosis -Monitor platelet count in the a.m. 06/12 -hematology will be consulted 6. Increased troponin -Cardiology consultation 7. Anemia -monitor and transfuse if hemoglobin does drop lower 8. Mastitis with what appears to be abscess left breast -Surgery consultation most likely will need further I&D 06/12 -surgery planning on draining abscess today. ALFONSO KHAN MD Jun 12, 2020 07:10
--- NOTE | 2020-06-12 08:53 | Cardiology Progress Note ---
Subjective Date Seen by Provider: Jun 12, 2020 Time Seen by Provider: 08:50 Subjective/Events-last exam Patient was seen at bedside, laying down comfortably, breathing better, not requiring oxygen supplement Review of Systems General: No Chills, No Night Sweats; Fatigue; No Malaise, No Appetite, No Other HEENT: No Head Aches, No Visual Changes, No Eye Pain, No Ear Pain, No Dysphasia, No Sinus Congestion, No Post Nasal Drip, No Sore Throat, No Other Pulmonary: Dyspnea; No Cough, No Pleuritic Chest Pain, No Other Cardiovascular: No: Chest Pain, Palpitations, Orthopnea, Paroxysmal Noc. Dyspnea, Edema, Lt Headedness, Other Objective-Cardiology Exam Last Set of Vital Signs Vital Signs 06/11/20 06/12/20 06/12/20 06/12/20 20:00 03:52 06:00 07:13 Temp 36.3 Pulse 69 Resp 21 B/P (MAP) 144/105 (118) Pulse Ox 93 O2 Delivery Room Air O2 Flow Rate 2.00 FiO2 25 Capillary Refill : Less Than 3 SecondsLess Than 3 Seconds I&O Intake and Output 06/12/20 00:00 Intake Total 500 ml Output Total 1175 ml Balance -675 ml Intake Oral 100 ml IV Total 400 ml Output Urine Total 1175 ml Daily Weight Change No General: Alert, Oriented X3, Cooperative, No Acute Distress HEENT: Atraumatic, PERRLA Neck: Supple Lungs: Clear to Auscultation Heart: Regular Rate, Normal S1, Normal S2, Gallops Abdomen: Soft Extremities: No Clubbing, No Cyanosis, No Edema, Normal Pulses, No Tenderness/Swelling Skin: No Rashes Neuro: Normal Gait, Normal Speech, Strength at 5/5 X4 Ext, Normal Tone, Sensation Intact Psych/Mental Status: Mental Status NL Results Lab Laboratory Tests 06/11/20 11:59 06/12/20 03:42 A/P-Cardiology Admission Diagnosis Acute resiratory distress Elevated troponin preeclamsia Mastitis Assessment/Plan Status post acute respiratory failure, better at this time, not requiring oxygen supplement Congestive heart failure, acute left ventricular systolic dysfunction, probably nonischemic, I am suspecting peripartum cardiomyopathy, responded well to diuretics. I am planning for LifeVest, started on Coreg and Entresto and she is tolerating them well. Mild elevation in troponin, probably type II myocardial infarction secondary to congestive heart failure, underlying ischemic etiology cannot be entirely exclud ed. I'm planning to evaluate Lexiscan stress test once clinically more stable, continue to monitor troponin trend Thrombocytosis, probably reactive, worsening today probably secondary to volume contractions and diuretics. Agree with consulting hematology, I will start patient on aspirin 81 mg daily Mastitis- CTA chest showing mass to left breast concerning for abscess. Has been maintained on antibiotics as outpatient. Management per medical services Hx of MVP, I will evaluate 2D Echo TRACY AGUIRRE MD Jun 12, 2020 8:52 am
[2020-06-12] MEDS ORDERED: amLODIPine 5 MG (NORVASC) TAB PO SCH (09:00)
[2020-06-12] MEDS ORDERED: amLODIPine 10 MG (NORVASC) TAB PO SCH (09:00)
[2020-06-12] MEDS: SACUBITRIL/VALSARTAN 24/26 MG (ENTRESTO) TABLET PO SCH ×2 (09:16→20:08)
[2020-06-12] MEDS: FUROSEMIDE 40 MG/4 ML INJ (LASIX) IVP SCH (09:16)
[2020-06-12] MEDS: CARVEDILOL 6.25 MG (COREG) TAB PO SCH ×2 (09:16→20:08)
[2020-06-12] MEDS: PANTOPRAZOLE 40 MG (PROTONIX) TAB PO SCH (09:19)
[2020-06-12] MEDS: ASPIRIN E.C. 81 MG (ECOTRIN) TAB PO SCH (09:19)
[2020-06-12] MEDS ORDERED: MIDAZOLAM 2 MG/2 ML (VERSED) VIAL ONE (09:41)
[2020-06-12] MEDS ORDERED: fentaNYL INJECTION 100 MCG/2 ML AMP ONE (09:41)
[2020-06-12] MEDS ORDERED: ONDANSETRON 4 MG/2 ML (SDV) Z0FRAN ONE (09:41)
[2020-06-12] MEDS ORDERED: proPOfol 200 MG/20 ML (DIPRIVAN) VIAL IV ONE (09:41)
[2020-06-12] MEDS ORDERED: SEVOFLURANE (ULTANE) 15 ML INHAL SOLN ONE (09:41)
[2020-06-12] MEDS ORDERED: LIDOCAINE PF 2% 5 ML (XYLOCAINE) VIAL ONE (09:41)
[2020-06-12] MEDS ORDERED: LIDOCAINE/EPI 1%-1:100,000 (XYLOCAINE) 50 ML ONE (11:05)
[2020-06-12] MEDS ORDERED: ACHD5005 PO (11:06)
[2020-06-12] MEDS ORDERED: IBUP-2185 PO (11:06)
[2020-06-12] MEDS ORDERED: CLIN300C12 PO (11:06)
--- NOTE | 2020-06-12 11:31 | Progress Note-Post Operative ---
Post-Operative Progess Note Surgeon (s)/Cold Roll Packer Sheet Iron (s) Surgeon AJAY WEST DO Cold Roll Packer Sheet Iron: MAX Joe Pre-Operative Diagnosis Mastitis with Abscess of left breast Post-Operative Diagnosis same Procedure & Operative Findings Date of Procedure 06/12/20 Procedure Performed/Findings I&D with debridement and packing, debridement of 1cm Anesthesia Type LMA Estimated Blood Loss Estimated blood loss (mL): scant Specimens/Packing Specimens Removed necrotic tissue Packin" iodophor packing, 1 bottle AJAY WEST DO Jun 12, 2020 11:31
[2020-06-12] MEDS ORDERED: PROMETHAZINE INJ 25 MG/ML (PHENERGAN) AMP IVP ONE (11:45)
[2020-06-12] MEDS ORDERED: MEPERIDINE (DEMEROL) INJ 50 MG/ML IVP ONE (11:45)
[2020-06-12] MEDS ORDERED: ONDANSETRON 4 MG/2 ML (SDV) Z0FRAN IVP PRN (11:45)
[2020-06-12] MEDS ORDERED: morphine INJ 10 MG/ML 1ML (SYR OR VIAL) IVP ONE (11:45)
--- NOTE | 2020-06-12 12:14 | Anesthesia-General Post-Op ---
General Patient Condition Mental Status/LOC: Same as Preop Cardiovascular: Satisfactory Nausea/Vomiting: Absent Respiratory: Satisfactory Pain: Controlled Complications: Absent Post Op Complications Complications None Follow Up Care/Instructions Patient Instructions None needed. Anesthesia/Patient Condition Patient Condition Patient is doing well, no complaints, stable vital signs, no apparent adverse anesthesia problems. No complications reported per nursing. BEVERLY DELUNA CRNA Jun 12, 2020 12:14
[2020-06-12] MEDS ORDERED: TROUGH ORDER-PHARMACY XX NR ×3 (14:00→19:00)
--- NOTE | 2020-06-12 15:39 | Oncology Consultation ---
Visit Information Visit Information Date of Admission Jun 11, 2020 at 12:47 Attending Physician Jan Alexandra MD Admitting Physician Kyra Payne MD Chief Complaint Thrombocytosis over 1 million in the setting of pneumonia and mastitis/abscess 6 weeks . Interval History This is a 25 year old female, 6 weeks of normal spontaneous delivery who has been diagnosed with mastitis under the antibiotic treatment and presented to ED with worsening of SOB and cough. CT of chest showed 1. Multifocal nodular and additional ill-defined airspace consolidation involving the lungs bilaterally with more involvement of the right lung compared to the left. Multifocal pneumonia including atypical infectious etiologies is in the differential diagnosis. Other alveolar consolidative processes and causes of an acute pneumonitis would also be considered. 2. Large gas and fluid containing- like mass abnormality in the left breast measuring approximately 7.6 x 4.1 cm in axial extent with areas of abnormal gas potentially extending to the skin surface. Recommend correlation with physical exam and with patient history. This may potentially reflect a large abscess. 3. No identified pulmonary embolus. 4. Small right pleural effusion. She was also noticed to have Plt 900 range yesterday and 1095 today. Hb 9.3, WBC 9.7 No fever. I consulted the patient on: 06/12/20 15:35 Time Seen by Provider: 15:00 Review of Systems Constitutional: see HPI Health Status Allergies Coded Allergies: No Known Drug Allergies (Unverified , 05/26/16) Home Medications Clindamycin HCl (Clindamycin HCl) 300 Mg Capsule, 300 MG PO QID, (Reported) FILLED 06-07-2020 #28/7 DAY SUPPLY Hydrocodone/Acetaminophen (Hydrocodone-Acetamin 5-325 mg) 1 Each Tablet, 1 TAB PO Q4H PRN for PAIN-MODERATE (5-7), (Reported) Ibuprofen (Ibuprofen) 200 Mg Capsule, 400-600 MG PO Q8H PRN for PAIN-MILD (1-4), (Reported) RFS-Uhmzij-Bvrdcv Hx Patient Social History Smoking Status: Never a Smoker 2nd Hand Smoke Exposure: No Recent Hopitalizations: No Alcohol Use?: No Immunizations Up To Date Tetanus Booster (TDap): Less than 5yrs Date of Influenza Vaccine: Jan 16, 2021 Family Medical History Significant Family History: Heart Disease (mother), Cancer (denies), Hypertension (mother) Physical Exam Vital Signs Vital Signs - First Documented 06/11/20 20:00 FiO2 25 Capillary Refill : Less Than 3 SecondsLess Than 3 Seconds Height, Weight, BMI Height: 5'2.00" Weight: 130lbs. 0oz. 58.822391wj; 27.48 BMI Method:Stated General Appearance: No Apparent Distress HEENT: PERRL/EOMI Neck: Supple Respiratory: No Accessory Muscle Use, No Respiratory Distress Cardiovascular: Regular Rate, Rhythm Gastrointestinal: Non Tender, Soft Neurologic/Psychiatric: Alert, Oriented x3 Skin: Normal Color, Warm/Dry, Other (breast covered with dressing and tender) Data Review Labs Laboratory Tests 06/13/20 03:08 Laboratory Tests 06/11/20 11:59: Red Blood Count 3.71L, Hemoglobin 8.6L, Hematocrit 29L, Mean Corpuscular Volume 79L, Mean Corpuscular Hemoglobin 23L, Mean Corpuscular Hemoglobin Concent 30L, Red Cell Distribution Width 18.6H, Platelet Count 985H, Eosinophils # (Auto) 0.5H, D-Dimer 2.00H, Lactate Dehydrogenase 246H, Troponin I 0.037H, B-Type Natriuretic Peptide 1068.3H 06/11/20 12:30: 06/11/20 12:37: Arterial Blood pH 7.44H, Arterial Blood Partial Pressure O2 55L, Arterial Blood Oxygen Saturation 86L 06/11/20 15:03: 06/11/20 16:55: Urine Specific [place] 1.015L, Urine RBC (Auto) 2+H, Urine Bacteria MODERATEH, Urine Hyaline Casts 2-5H 06/12/20 03:42: Hemoglobin 9.3L, Hematocrit 32L, Mean Corpuscular Volume 78L, Mean Corpuscular Hemoglobin 23L, Mean Corpuscular Hemoglobin Concent 29L, Red Cell Distribution Width 18.6H, Platelet Count 1095*H, Mean Platelet Volume 8.7L, Magnesium Level 2.8H 06/12/20 14:43: Vancomycin Level Trough 25.0H 06/12/20 18:54: 06/13/20 03:08: Hemoglobin 9.4L, Hematocrit 32L, Mean Corpuscular Volume 79L, Mean Corpuscular Hemoglobin 23L, Mean Corpuscular Hemoglobin Concent 29L, Red Cell Distribution Width 19.1H, Platelet Count 1101*H, Neutrophils (%) (Auto) 84H, Lymphocytes (%) (Auto) 10L, Neutrophils # (Auto) 7.9H, Glucose Level 109H, B-Type Natriuretic Peptide 798.7H Laboratory Tests 06/13/20 03:08 Impression & Plan Impression & Plan IMP: 1. Thrombocytosis, most likely reactive to the infection and anemia (marrow over compensation). 2. Mastitis/abscess per CT scan 3. Six weeks normal spontaneous delivery 4. Bilateral pneumonia per CT scan. No embolism. 5. Cardiomegaly per CT scan Rec: 1. Surgical consultation for the breast abscess 2. Treat infection and f/u culture results. 3. Correct anemia. Pt can take oral iron pills if she is able to tolerate. If not, consider IV iron. 4. No need to treat for Plt number. It will correct itself once we get her infection under control and her anemia improves. KALIN BAE MD Jun 12, 2020 15:39
[2020-06-12] MEDS ORDERED: NS (IVPB) 250 ML ONE (19:48)
[2020-06-12] MEDS ORDERED: VANCOMYCIN 1000 MG/VIAL ONE (19:48)
[2020-06-12] MEDS ORDERED: VANCOMYCIN 1 GM/NS 250 ML IVPB IV SCH ×2 (20:00)
[2020-06-13] MEDS: RT-ALBUTEROL INHALER HFA (VENTOLIN HFA) 18 GM IH SCH ×3 (01:51→15:40)
[2020-06-13 03:56] LABS: BASOPHILS # (AUTO) 0.1 10^3/uL (0.0-0.1); BASOPHILS % (AUTO) 1 % (0-10); EOSINOPHILS % (AUTO) 0 % (0-10); HEMATOCRIT 32 % (35-52); HEMOGLOBIN 9.4 g/dL (11.5-16.0); LYMPHOCYTES % (AUTO) 10 % (12-44); MEAN CORPUSCULAR HEMOGLOBIN 23 pg (25-34); MEAN CORPUSCULAR HGB CONC 29 g/dL (32-36); MEAN CORPUSCULAR VOLUME 79 fL (80-99); MEAN PLATELET VOLUME 9.1 fL (9.0-12.2); MONOCYTES # (AUTO) 0.5 10^3/uL (0.0-1.0); MONOCYTES % (AUTO) 5 % (0-12); NEUTROPHILS # (AUTO) 7.9 10^3/uL (1.8-7.8); NEUTROPHILS % (AUTO) 84 % (42-75); WHITE BLOOD COUNT 9.4 10^3/uL (4.3-11.0)
[2020-06-13 04:00] LABS: PLATELET COUNT 1101 10^3/uL (130-400)
[2020-06-13 04:14] LABS: ALBUMIN 3.2 GM/DL (3.2-4.5)
[2020-06-13 04:15] LABS: CHLORIDE 101 MMOL/L (98-107); POTASSIUM 4.1 MMOL/L (3.6-5.0); SODIUM 137 MMOL/L (135-145)
[2020-06-13 04:16] LABS: CALCIUM 8.6 MG/DL (8.5-10.1)
[2020-06-13 04:17] LABS: GLUCOSE 109 MG/DL (70-105); TOTAL PROTEIN 7.1 GM/DL (6.4-8.2)
[2020-06-13 04:18] LABS: CARBON DIOXIDE 24 MMOL/L (21-32)
[2020-06-13 04:19] LABS: BILIRUBIN,TOTAL 0.4 MG/DL (0.1-1.0)
[2020-06-13 04:20] LABS: ALKALINE PHOSPHATASE 92 U/L (40-136); PHOSPHORUS 4.4 MG/DL (2.3-4.7)
[2020-06-13 04:21] LABS: CREATININE SERUM 0.99 MG/DL (0.60-1.30); GFR ESTIMATED > 60
[2020-06-13 04:22] LABS: BUN/CREATININE RATIO 17
[2020-06-13 04:23] LABS: MAGNESIUM 2.3 MG/DL (1.6-2.4)
[2020-06-13 04:24] LABS: ALANINE AMINOTRANSFERASE 8 U/L (0-55)
[2020-06-13] MEDS: CATHETER FLUSH 10 ML SYR IV SCH ×2 (06:01→14:05)
--- NOTE | 2020-06-13 06:21 | Pulmonary Progress Note ---
Subjective Time Seen by a Provider: 06:18 Subjective/Events-last exam Pt appears to be doing better. Sepsis Event Evaluation Height, Weight, BMI Height: 5'2.00" Weight: 130lbs. 0oz. 58.080187yn; 27.48 BMI Method:Stated Exam Exam Vital Signs Date Time Temp Pulse Resp B/P (MAP) Pulse Ox O2 Delivery O2 Flow Rate FiO2 06/13/20 06:00 56 18 127/93 (104) 95 Room Air 06/13/20 05:00 55 18 117/82 (94) 95 Room Air 06/13/20 05:00 55 15 117/82 (94) 95 Room Air 06/13/20 04:00 56 19 127/79 (95) 94 Room Air 06/13/20 04:00 56 17 114/79 (91) 93 Room Air 06/13/20 04:00 98 Room Air 06/13/20 03:00 56 19 127/79 (95) 94 Room Air 06/13/20 03:00 56 17 114/79 (91) 92 Room Air 06/13/20 02:00 73 16 146/76 (99) 91 Room Air 06/13/20 01:00 62 21 114/85 (95) 98 Room Air 06/13/20 01:00 63 06/13/20 00:00 98 Room Air 06/12/20 23:53 36.3 06/12/20 23:00 71 20 121/85 (97) 97 Room Air 06/12/20 21:00 80 18 127/78 (94) 97 Room Air 06/12/20 20:42 99 Room Air 1.00 06/12/20 20:00 77 17 128/86 (100) 97 Room Air 06/12/20 20:00 36.5 06/12/20 20:00 98 Room Air 06/12/20 19:00 90 06/12/20 19:00 87 20 117/86 (96) 96 Room Air 06/12/20 18:00 85 27 119/82 (94) 96 Room Air 06/12/20 17:00 90 13 113/83 (93) 97 Room Air 06/12/20 16:00 86 19 124/96 (105) 95 Room Air 06/12/20 15:55 98 High Flow N/C 2.00 06/12/20 15:00 82 19 118/89 (99) 97 High Flow N/C 2.00 06/12/20 14:33 98 High Flow N/C 1.00 06/12/20 14:00 70 25 116/92 (100) 97 High Flow N/C 2.00 06/12/20 13:00 70 06/12/20 13:00 70 22 126/88 (101) 97 High Flow N/C 2.00 06/12/20 12:50 OxyMask 2 06/12/20 12:45 98 High Flow N/C 2.00 06/12/20 12:40 36 18 120/83 (95) 97 OxyMask 2 06/12/20 12:30 18 120/83 (95) 97 OxyMask 2 06/12/20 12:30 OxyMask 2 06/12/20 12:20 18 113/83 (93) 98 OxyMask 2 06/12/20 12:10 20 117/86 (96) 98 OxyMask 2 06/12/20 12:10 OxyMask 4 06/12/20 12:00 19 112/83 (93) 99 OxyMask 4 06/12/20 12:00 22 125/107 (113) 96 High Flow N/C 2.00 06/12/20 11:55 20 112/82 (92) 100 OxyMask 6 06/12/20 11:50 OxyMask 6 06/12/20 11:39 36.2 16 98/62 (74) 98 OxyMask 8 06/12/20 11:39 OxyMask 8 06/12/20 10:00 67 22 96 High Flow N/C 2.00 06/12/20 09:00 75 21 150/112 (125) 94 High Flow N/C 2.00 06/12/20 08:00 81 15 143/104 (117) 92 High Flow N/C 2.00 06/12/20 08:00 98 High Flow N/C 2.00 06/12/20 07:13 93 Room Air 06/12/20 07:00 90 06/12/20 07:00 92 11 142/104 (117) 95 High Flow N/C 2.00 I & O 06/13/20 07:00 Intake Total 1477.5 ml Output Total 1820 ml Balance -342.5 ml Height & Weight Height: 5'2.00" Weight: 130lbs. 0oz. 58.329762sq; 27.48 BMI Method:Stated General Appearance: No Apparent Distress, WD/WN HEENT: PERRL/EOMI, Moist Mucous Membranes Neck: Full Range of Motion Respiratory: Lungs Clear, Normal Breath Sounds, No Accessory Muscle Use, No Respiratory Distress Cardiovascular: Regular Rate, Rhythm, No Murmur Capillary Refill: Less Than 3 Seconds Peripheral Pulses: 2+ Dorsalis Pedis (R), 2+ Left Dors-Pedis (L), 2+ Radial Pulses (R), 2+ Radial Pulses (L) Gastrointestinal: non tender, soft; No distended Extremity: No Calf Tenderness, No Pedal Edema Neurologic/Psychiatric: Alert, Oriented x3, No Motor/Sensory Deficits, Normal Mood/Affect Skin: Other (dressing in place to left breast, c/d/i) Results Lab Laboratory Tests 06/11/20 11:59 06/12/20 03:42 06/13/20 03:08 Assessment/Plan Assessment/Plan Acute respiratory failure r/o -Echo pending -Lasix -COVID is negative -Influenza is negativae cardiomyopathy with EF 25-30% -Life vest pending -Plan is for surgery today for I&D of left breast NSTEMI -Cardiology consulted HTN -monitor Mastitis with left breast abscess s/p I&D -Continue Abx from out patient -Consult surgery - Anemia -Monitor DVT ppx -Lovenox if ok with surgery PABLO HIGGINS DO Jun 13, 2020 06:21
[2020-06-13] MEDS ORDERED: FLUCONAZOLE 200 MG/100 ML 100 ML IV ONE (06:30)
[2020-06-13] MEDS: MAGNESIUM 1 GM/100 ML IVPB 100 ML IV SCH ×2 (06:53→07:47)
--- NOTE | 2020-06-13 07:24 | Progress Note ---
Subjective Subjective/Events-last exam patient is resting comfortably in bed this morning. She is not wearing any nasal cannula oxygen. She reports breathing much better. She also is a little bit sore on her left breast but overall that feels better as well since the abscess was drained yesterday. Objective Exam Last Set of Vital Signs Vital Signs Date Time Temp Pulse Resp B/P (MAP) Pulse Ox O2 Delivery O2 Flow Rate FiO2 06/13/20 06:00 56 18 127/93 (104) 95 Room Air 06/12/20 23:53 36.3 06/12/20 20:42 1.00 06/11/20 20:00 25 Capillary Refill : Less Than 3 SecondsLess Than 3 Seconds I&O Intake and Output 06/13/20 00:00 Intake Total 1547.5 ml Output Total 3595 ml Balance -2047.5 ml Intake Oral 1170 ml IV Total 377.5 ml Output Urine Total 3595 ml General: No Acute Distress Lungs: Clear to Auscultation Heart: Regular Rate Abdomen: Soft Results/Procedures Lab Laboratory Tests 06/12/20 14:43: Vancomycin Level Trough 25.0H 06/12/20 18:54: Vancomycin Level Trough 18.2 06/13/20 03:08: White Blood Count 9.4, Red Blood Count 4.11, Hemoglobin 9.4L, Hematocrit 32L, Mean Corpuscular Volume 79L, Mean Corpuscular Hemoglobin 23L, Mean Corpuscular Hemoglobin Concent 29L, Red Cell Distribution Width 19.1H, Platelet Count 1101*H , Mean Platelet Volume 9.1, Immature Granulocyte % (Auto) 1, Neutrophils (%) (Auto) 84H, Lymphocytes (%) (Auto) 10L, Monocytes (%) (Auto) 5, Eosinophils (%) (Auto) 0, Basophils (%) (Auto) 1, Neutrophils # (Auto) 7.9H, Lymphocytes # (Auto) 1.0, Monocytes # (Auto) 0.5, Eosinophils # (Auto) 0.0, Basophils # (Auto) 0.1, Immature Granulocyte # (Auto) 0.1, Sodium Level 137, Potassium Level 4.1, Chloride Level 101, Carbon Dioxide Level 24, Anion Gap 12, Blood Urea Nitrogen 17, Creatinine 0.99, Estimat Glomerular Filtration Rate > 60, BUN/Creatinine Ratio 17, Glucose Level 109H, Calcium Level 8.6, Corrected Calcium 9.2, Phosphorus Level 4.4, Magnesium Level 2.3, Total Bilirubin 0.4, Aspartate Amino Transf (AST/SGOT) 7, Alanine Aminotransferase (ALT/SGPT) 8, Alkaline Phosphatase 92, Troponin I < 0.028, B-Type Natriuretic Peptide 798.7H, Total Protein 7.1, Albumin 3.2 Microbiology 06/11/20 Gram Stain, Resulted Pending 06/11/20 Wound Culture - Preliminary, Resulted Staphylococcus aureus 06/11/20 Influenza Types A,B Antigen (PIERRE) - Final, Complete 06/11/20 Urine Culture - Final, Complete YEAST See Comments Radiology Date of Exam:06/11/20 CT ANGIO CHEST W PROCEDURE: CT angiography of the chest with contrast. TECHNIQUE: Multiple contiguous axial images were obtained through the chest after uneventful bolus administration of intravenous contrast. 3D reconstructed CTA MIP acquisitions were also performed. Auto Exposure Controls were utilized during the CT exam to meet ALARA standards for radiation dose reduction. DATE: June 11, 2020. COMPARISON: Chest radiograph June 11, 2020. INDICATION: 25-year-old female, shortness of breath. Positive d-dimer. Hypertension. FINDINGS: There is multifocal bilateral fairly nodular an additional less well-defined alveolar consolidation. Consolidation is more notable in the right lung than the left. There is no pneumothorax. There is a small right pleural effusion. There is no sizable left pleural effusion. There is no identified pulmonary embolus. The main pulmonary artery is normal in caliber. The heart is not enlarged. There is no pericardial effusion. There is no evidence of aortic dissection. There is no identified abnormally enlarged mediastinal or hilar lymph node. There are asymmetrically prominent and abnormally enlarged left axillary lymph nodes measuring up to 12 mm in short axis for example on axial image 49. There is a large gas and fluid containing masslike abnormality in the left breast measuring approximately 7.6 x 4.1 cm in axial dimension. This abnormal gas may extend to the skin surface. This is incompletely imaged. Correlation with physical exam and patient history is needed. The imaged portions of the upper abdomen are unremarkable. There is no identified acute bony abnormality. IMPRESSION: CT CHEST. 1. Multifocal nodular and additional ill-defined airspace consolidation involving the lungs bilaterally with more involvement of the right lung compared to the left. Multifocal pneumonia including atypical infectious etiologies is in the differential diagnosis. Other alveolar consolidative processes and causes of an acute pneumonitis would also be considered. 2. Large gas and fluid containing-like mass abnormality in the left breast measuring approximately 7.6 x 4.1 cm in axial extent with areas of abnormal gas potentially extending to the skin surface. Recommend correlation with physical exam and with patient history. This may potentially reflect a large abscess. 3. No identified pulmonary embolus. 4. Small right pleural effusion. Dictated by: Dictated on workstation # [id number] Dict: 06/11/20 1403 Trans: 06/11/[address] [facility] [id number] Interpreted by: ENRIQUE RIZVI MD Electronically signed by: ENRIQUE RIZVI MD 06/11/20 7691 Assessment/Plan Assessment/Plan Assessment & Plan 1. Acute respiratory distresspneumonitis versus pulmonary edema -ICU admission -She has received Lasix in the ED with good urine output and appears to be improved with regard to respiratory effort and off the BiPAP currently -She has been placed on vancomycin and Zosyn -Blood cultures pending 06/12 -echocardiogram revealed patient has cardiomyopathy -She is currently on Carvidiol and receiving 40 mg Lasix daily -Cardiology consulted 06/13 -awaiting LifeVest -Suspect she'll be transferred to [facility] today, awaiting cardiology visit 2. Hypertension urgency -She has received labetalol 20 units and 40 units through the ED. She has also received hydralazine 5 mg and does have available 10 mg hydralazine every 6 hours as needed for elevated systolic above 160. -She has also been started on amlodipine 10 mg daily by cardiology. 3. Elevated BNP -Echocardiogram has been performed but results are pending 4. Elevated d-dimer -pulmonary consultation 5. Thrombocytosis -Monitor platelet count in the a.m. 06/12 -hematology will be consulted 6. Increased troponin -Cardiology consultation 7. Anemia -monitor and transfuse if hemoglobin does drop lower 8. Mastitis with what appears to be abscess left breast -Surgery consultation most likely will need further I&D 06/12 -surgery planning on draining abscess today. ALFONSO KHAN MD Jun 13, 2020 07:24
[2020-06-13] MEDS: ASPIRIN E.C. 81 MG (ECOTRIN) TAB PO SCH (07:50)
[2020-06-13] MEDS: PANTOPRAZOLE 40 MG (PROTONIX) TAB PO SCH (07:50)
[2020-06-13] MEDS: FUROSEMIDE 40 MG/4 ML INJ (LASIX) IVP SCH (07:50)
[2020-06-13] MEDS: SACUBITRIL/VALSARTAN 24/26 MG (ENTRESTO) TABLET PO SCH (07:50)
[2020-06-13] MEDS: CARVEDILOL 6.25 MG (COREG) TAB PO SCH (07:50)
--- NOTE | 2020-06-13 07:57 | Progress Note - Surgery ---
ALVARO CLAUDIO,MED STUDENT 06/13/20 0757: Subjective Date Seen by a Provider: Jun 13, 2020 Time Seen by a Provider: 06:11 Subjective/Events-last exam Pt seen and examined this morning. States that her breathing is much better and the pain in her left breast has improved after surgery. Denies fever, chills, SOB, chest pain, n/v, abd pain or dysuria. Review of Systems General: No Chills HEENT: No Head Aches Pulmonary: No Dyspnea, No Cough Cardiovascular: No: Chest Pain, Edema Gastrointestinal: No: Nausea, Vomiting, Abdominal Pain Genitourinary: No Dysuria Musculoskeletal: other (L breast pain ) Neurological: No: Weakness, Numbness Objective Exam Vital Signs Date Time Temp Pulse Resp B/P (MAP) Pulse Ox O2 Delivery O2 Flow Rate FiO2 06/13/20 06:00 56 18 127/93 (104) 95 Room Air 06/13/20 05:00 55 18 117/82 (94) 95 Room Air 06/13/20 05:00 55 15 117/82 (94) 95 Room Air 06/13/20 04:00 56 19 127/79 (95) 94 Room Air 06/13/20 04:00 56 17 114/79 (91) 93 Room Air 06/13/20 04:00 98 Room Air 06/13/20 03:00 56 19 127/79 (95) 94 Room Air 06/13/20 03:00 56 17 114/79 (91) 92 Room Air 06/13/20 02:00 73 16 146/76 (99) 91 Room Air 06/13/20 01:00 62 21 114/85 (95) 98 Room Air 06/13/20 01:00 63 06/13/20 00:00 98 Room Air 06/12/20 23:53 36.3 06/12/20 23:00 71 20 121/85 (97) 97 Room Air 06/12/20 21:00 80 18 127/78 (94) 97 Room Air 06/12/20 20:42 99 Room Air 1.00 06/12/20 20:00 77 17 128/86 (100) 97 Room Air 06/12/20 20:00 36.5 06/12/20 20:00 98 Room Air 06/12/20 19:00 90 06/12/20 19:00 87 20 117/86 (96) 96 Room Air 06/12/20 18:00 85 27 119/82 (94) 96 Room Air 06/12/20 17:00 90 13 113/83 (93) 97 Room Air 06/12/20 16:00 86 19 124/96 (105) 95 Room Air 06/12/20 15:55 98 High Flow N/C 2.00 06/12/20 15:00 82 19 118/89 (99) 97 High Flow N/C 2.00 06/12/20 14:33 98 High Flow N/C 1.00 06/12/20 14:00 70 25 116/92 (100) 97 High Flow N/C 2.00 06/12/20 13:00 70 06/12/20 13:00 70 22 126/88 (101) 97 High Flow N/C 2.00 06/12/20 12:50 OxyMask 2 06/12/20 12:45 98 High Flow N/C 2.00 06/12/20 12:40 36 18 120/83 (95) 97 OxyMask 2 06/12/20 12:30 18 120/83 (95) 97 OxyMask 2 06/12/20 12:30 OxyMask 2 06/12/20 12:20 18 113/83 (93) 98 OxyMask 2 06/12/20 12:10 20 117/86 (96) 98 OxyMask 2 06/12/20 12:10 OxyMask 4 06/12/20 12:00 19 112/83 (93) 99 OxyMask 4 06/12/20 12:00 22 125/107 (113) 96 High Flow N/C 2.00 06/12/20 11:55 20 112/82 (92) 100 OxyMask 6 06/12/20 11:50 OxyMask 6 06/12/20 11:39 36.2 16 98/62 (74) 98 OxyMask 8 06/12/20 11:39 OxyMask 8 06/12/20 10:00 67 22 96 High Flow N/C 2.00 06/12/20 09:00 75 21 150/112 (125) 94 High Flow N/C 2.00 06/12/20 08:00 81 15 143/104 (117) 92 High Flow N/C 2.00 06/12/20 08:00 98 High Flow N/C 2.00 I & O 06/13/20 07:00 Intake Total 1857.5 ml Output Total 1945 ml Balance -87.5 ml Capillary Refill : Less Than 3 SecondsLess Than 3 Seconds General Appearance: No Apparent Distress, WD/WN HEENT: PERRL/EOMI, Moist Mucous Membranes Respiratory: Lungs Clear, No Accessory Muscle Use, No Respiratory Distress, Decreased Breath Sounds (bilateral bases, improved from yesterday) Cardiovascular: Regular Rate, Rhythm, No Murmur Peripheral Pulses: 2+ Dorsalis Pedis (R), 2+ Left Dors-Pedis (L), 2+ Radial Pulses (R), 2+ Radial Pulses (L) Gastrointestinal: normal bowel sounds, non tender, soft; No distended Extremity: No Calf Tenderness, No Pedal Edema Neurologic/Psychiatric: Alert, Oriented x3, No Motor/Sensory Deficits, Normal Mood/Affect Skin: Normal Color, Warm/Dry, Other (dressing in place to left breast, c/d/i) Results Lab Laboratory Tests 06/12/20 14:43: Vancomycin Level Trough 25.0H 06/12/20 18:54: Vancomycin Level Trough 18.2 06/13/20 03:08: White Blood Count 9.4, Red Blood Count 4.11, Hemoglobin 9.4L, Hematocrit 32L, Mean Corpuscular Volume 79L, Mean Corpuscular Hemoglobin 23L, Mean Corpuscular Hemoglobin Concent 29L, Red Cell Distribution Width 19.1H, Platelet Count 1101*H , Mean Platelet Volume 9.1, Immature Granulocyte % (Auto) 1, Neutrophils (%) (Auto) 84H, Lymphocytes (%) (Auto) 10L, Monocytes (%) (Auto) 5, Eosinophils (%) (Auto) 0, Basophils (%) (Auto) 1, Neutrophils # (Auto) 7.9H, Lymphocytes # (Auto) 1.0, Monocytes # (Auto) 0.5, Eosinophils # (Auto) 0.0, Basophils # (Auto) 0.1, Immature Granulocyte # (Auto) 0.1, Sodium Level 137, Potassium Level 4.1, Chloride Level 101, Carbon Dioxide Level 24, Anion Gap 12, Blood Urea Nitrogen 17, Creatinine 0.99, Estimat Glomerular Filtration Rate > 60, BUN/Creatinine Ratio 17, Glucose Level 109H, Calcium Level 8.6, Corrected Calcium 9.2, Phosphorus Level 4.4, Magnesium Level 2.3, Total Bilirubin 0.4, Aspartate Amino Transf (AST/SGOT) 7, Alanine Aminotransferase (ALT/SGPT) 8, Alkaline Phosphatase 92, Troponin I < 0.028, B-Type Natriuretic Peptide 798.7H, Total Protein 7.1, Albumin 3.2 Microbiology 06/11/20 Gram Stain, Resulted Pending 06/11/20 Wound Culture - Preliminary, Resulted Staphylococcus aureus 06/11/20 Influenza Types A,B Antigen (PIERRE) - Final, Complete 06/11/20 Urine Culture - Final, Complete YEAST See Comments Assessment/Plan Assessment/Plan Assessment/Plan Left Breast Mastitis with Abscess, s/p I&D with iodoform packing in place Cardiomyopathy- echo showed EF of 25-30% NSTEMI Thrombocytosis, likely reactive, platelets elevated to 1101 from 1095 yesterday Local wound care to left breast- daily packing COVID negative Continue IV fluids, pain control Wound culture showed MRSA, continue Vanc Monitor O2 sats and supplemental oxygen as needed Urine culture grew yeast, fluconazole ordered per LUIS DANIEL Morris DO 06/13/20 0942: Subjective Time Seen by a Provider: 09:31 Subjective/Events-last exam Pt seen and examined, states her breast pain is much better. She is breathing fine without O2. Review of Systems General: No Chills HEENT: No Head Aches Pulmonary: No Dyspnea, No Cough Cardiovascular: No: Chest Pain, Edema Gastrointestinal: No: Nausea, Vomiting, Abdominal Pain Objective Exam General Appearance: No Apparent Distress, WD/WN HEENT: PERRL/EOMI Respiratory: Lungs Clear, No Accessory Muscle Use, No Respiratory Distress, Decreased Breath Sounds (bilateral bases, improved from yesterday) Cardiovascular: Regular Rate, Rhythm, No Murmur Gastrointestinal: non tender, soft; No distended Assessment/Plan Assessment/Plan Assessment/Plan Left Breast Mastitis with Abscess, s/p I&D with iodoform packing in place Cardiomyopathy- echo showed EF of 25-30% NSTEMI Thrombocytosis, likely reactive, platelets elevated to 1101 from 1095 yesterday Local wound care to left breast- daily packing COVID negative Continue IV fluids, pain control Wound culture showed MRSA, continue Vanc and wait for sensitivity Monitor O2 sats and supplemental oxygen as needed Urine culture grew yeast, fluconazole ordered per Dr. Dobson Pt can go home once we have sensitivity and can send her on the correct oral ABX. If she goes home tomorrow, then plan to repack wound tomorrow. Otherwise, pt can come to my office tuesday and have my staff change dressing. Supervisory-Addendum Brief Verification & Attestation Participated in pt care: history, MDM, physical Personally performed: exam, history, MDM Care discussed with: Medical Student Procedures: n/a Verification and Attestation of Medical Student E/M Service A medical student performed and documented this service. I then reviewed and verified all information documented by the medical student and made modifications to such information, when appropriate. I personally performed a physical exam, medical decision making and then discussed any differences between the notes and made revisions as necessary to create one note. Luis Daniel Wets , 06/13/20 , 09:42 ALVARO CLAUDIO,MED STUDENT Jun 13, 2020 07:57 LUIS DANIEL WEST DO Jun 13, 2020 09:42
[2020-06-13] MEDS ORDERED: VANCOMYCIN INJECTION 750 MG in NS (IVPB) 250 ML IV SCH (08:00)
--- NOTE | 2020-06-13 08:14 | Diagnostic Imaging Report ---
INDICATION: Shortness of air, dyspnea. TECHNIQUE: Single view chest 3:10 AM. CORRELATION STUDY: 06/11/2020-06/12/2020 FINDINGS: Mediastinal structures appearing generally stable. Previous imaging demonstrated scattered somewhat nodular patchy densities throughout both lung cody. Overall improved from prior. Some residual areas of consolidation about both lung bases left greater than right do persist. IMPRESSION: 1. Presumably demonstrated bilateral pulmonary nodular opacities improved from prior. Some residual opacities particularly at the lung bases left greater than right do persist. Dictated by: Dictated on workstation # [id number]
--- NOTE | 2020-06-13 09:48 | Discharge Inst-Surgical ---
Discharge Inst-Surgical Depart Medication/Instructions Patient Instructions Follow up Appt: Make appointment for 1 week. [phone] Instructions: No lifting greater than 20 pounds. No strenuous activity. May shower in 24 hours, no tub bath or soaking. Use incentive spirometer at home as directed. No Smoking Skin/Wound Care: May remove bandages in am. You need to leave the Dermabond on incision it will fall off on it's own. Symptoms to Report: Appetite Changes, Extremity Discoloration, Numbness/Tingling, Swelling Increased, Bleeding Excessive, Eyesight Changes, Pain Increased, Urine Color Change, Constipation(Persistent), Fever over 101 degree F, Pain/Pressure in chest, Urinating Difficulty, Cough Up/Vomit Blood, Heart Beat Irreg/Pounding, Pain/Pressure in jaw, Cramps in feet or legs, Lightheadedness, Pain/Pressure in shoulder, Diarrhea(Persistent), Memory Changes Suddenly, Questions/Concerns, Weight gain consecutive days, Dizziness/Fainting, Nausea/Vomiting, Shortness of Breath, Weight gain over 2 pounds If questions or concerns contact your physician Or seek help at emergency department. Activity Activity as Tolerated: Yes Activity Instructions: Avoid Stress to Incision Driving Instructions: No Driving/Refer to Dr. Loomis Discharge Diet: No Restrictions Diet After 24 Hours: Clear Liquid if Nauseous If Any Problems/Questions/Issu: Contact Your Physician, Go to Emergency Room Skin/Wound Care Infection Signs and Symptoms: Increased Redness, Foul Odor of Wound, Increased Drainage, Skin Itchy or Has a Rash, Increased Swelling, Temperature Above 101 F Wound Care Comment: Please go Tuesday to my clinic to have packing changed. Bathing Instructions: AJAY Craft DO Jun 13, 2020 09:48
[2020-06-13] MEDS ORDERED: FERROUS SULF 325 MG (IRON) TAB PO SCH (10:00)
--- NOTE | 2020-06-13 10:47 | Cardiology Progress Note ---
Subjective Date Seen by Provider: Jun 13, 2020 Time Seen by Provider: 10:46 Subjective/Events-last exam Patient is laying down in bed, feeling better. No new complaint Review of Systems General: No Chills, No Night Sweats; Fatigue; No Malaise, No Appetite, No Other HEENT: No Head Aches, No Visual Changes, No Eye Pain, No Ear Pain, No Dysphasia, No Sinus Congestion, No Post Nasal Drip, No Sore Throat, No Other Pulmonary: No Dyspnea, No Cough, No Pleuritic Chest Pain, No Other Cardiovascular: No: Chest Pain, Palpitations, Orthopnea, Paroxysmal Noc. Dyspnea, Edema, Lt Headedness, Other Objective-Cardiology Exam Last Set of Vital Signs Vital Signs 06/11/20 06/12/20 06/12/20 06/13/20 06/13/20 20:00 20:42 23:53 09:00 10:09 Temp 36.3 Pulse 76 Resp 14 B/P (MAP) 149/102 (118) Pulse Ox 98 O2 Delivery Room Air O2 Flow Rate 1.00 FiO2 25 Capillary Refill : Less Than 3 SecondsLess Than 3 Seconds I&O Intake and Output 06/13/20 00:00 Intake Total 1547.5 ml Output Total 3595 ml Balance -2047.5 ml Intake Oral 1170 ml IV Total 377.5 ml Output Urine Total 3595 ml General: Alert, Oriented X3, Cooperative, No Acute Distress HEENT: Atraumatic, PERRLA Neck: Supple Lungs: Clear to Auscultation Heart: Regular Rate, Normal S1, Normal S2 Abdomen: Normal Bowel Sounds, Soft Extremities: No Clubbing, No Cyanosis, No Edema, Normal Pulses, No Tenderness/Swelling Skin: No Rashes Neuro: Normal Gait, Normal Speech, Strength at 5/5 X4 Ext, Normal Tone, Sensation Intact Psych/Mental Status: Mental Status NL Results Lab Laboratory Tests 06/13/20 03:08 A/P-Cardiology Admission Diagnosis Acute resiratory distress Elevated troponin preeclamsia Mastitis Assessment/Plan Status post acute respiratory failure, recovered, not requiring oxygen supplement, doing well. Congestive heart failure, acute left ventricular systolic dysfunction, probably nonischemic, I am suspecting peripartum cardiomyopathy, responded well to diuretics. I am planning for LifeVest, started on Coreg and Entresto and she is tolerating them well. Planning to repeat 2-D echo Moderate to severe mitral regurgitation, I will reevaluate 2-D echo today. Mild elevation in troponin, probably type II myocardial infarction secondary to congestive heart failure, underlying ischemic etiology cannot be entirely excluded. I'm planning to evaluate Lexiscan stress test as an outpatient Thrombocytosis, probably reactive, worsening today probably secondary to volume contractions and diuretics. Agree with consulting hematology, I will start patient on aspirin 81 mg daily Mastitis- CTA chest showing mass to left breast concerning for abscess. Has been maintained on antibiotics as outpatient. Management per medical services Hx of [facility], I will evaluate 2D Echo TRACY AGUIRRE MD Jun 13, 2020 10:47 am
--- NOTE | 2020-06-13 13:53 | Progress Note ---
Progress Note Assessment/Plan Date Seen by Provider: Jun 13, 2020 Time Seen by Provider: 13:48 Events since last exam Pt had surgical I+D yesterday Plt is about the same today 1101. Hb and WBC stable Pt is stable. I started her oral iron pills today. It may take several days to 2 weeks to have the Plt number down. NO need to treat the reactive Plt number. Normal in-pt post-op anticoagulation per surgical procedure. Assessment/Plan A/P 1. Reactive thrombocytosis. If her Plt is still not back to normal 2 weeks after the infection under control and anemia corrected, please refer her to me as out-pt follow up. 2. Anemia, from the blood loss and infection. Start oral iron pills today and continue for a months if she can tolerate. 3. Mastitis/abscess, s/p I+D. f/u with PCP and surgeon. Vitals Last set of Vitals Signs Vital Signs Date Time Temp Pulse Resp B/P (MAP) Pulse Ox O2 Delivery O2 Flow Rate FiO2 06/13/20 12:57 79 06/13/20 12:00 36.6 06/13/20 10:09 98 Room Air 06/13/20 09:00 14 149/102 (118) 06/12/20 20:42 1.00 06/11/20 20:00 25 I&O I&O Intake and Output 06/13/20 00:00 Intake Total 1547.5 ml Output Total 3595 ml Balance -2047.5 ml Intake Oral 1170 ml IV Total 377.5 ml Output Urine Total 3595 ml Labs Laboratory Tests 06/12/20 14:43: Vancomycin Level Trough 25.0H 06/12/20 18:54: Vancomycin Level Trough 18.2 06/13/20 03:08: White Blood Count 9.4, Red Blood Count 4.11, Hemoglobin 9.4L, Hematocrit 32L, Mean Corpuscular Volume 79L, Mean Corpuscular Hemoglobin 23L, Mean Corpuscular Hemoglobin Concent 29L, Red Cell Distribution Width 19.1H, Platelet Count 1101*H , Mean Platelet Volume 9.1, Immature Granulocyte % (Auto) 1, Neutrophils (%) (Auto) 84H, Lymphocytes (%) (Auto) 10L, Monocytes (%) (Auto) 5, Eosinophils (%) (Auto) 0, Basophils (%) (Auto) 1, Neutrophils # (Auto) 7.9H, Lymphocytes # (Auto) 1.0, Monocytes # (Auto) 0.5, Eosinophils # (Auto) 0.0, Basophils # (Auto) 0.1, Immature Granulocyte # (Auto) 0.1, Sodium Level 137, Potassium Level 4.1, Chloride Level 101, Carbon Dioxide Level 24, Anion Gap 12, Blood Urea Nitrogen 17, Creatinine 0.99, Estimat Glomerular Filtration Rate > 60, BUN/Creatinine Ratio 17, Glucose Level 109H, Calcium Level 8.6, Corrected Calcium 9.2, Phosphorus Level 4.4, Magnesium Level 2.3, Total Bilirubin 0.4, Aspartate Amino Transf (AST/SGOT) 7, Alanine Aminotransferase (ALT/SGPT) 8, Alkaline Phosphatase 92, Troponin I < 0.028, B-Type Natriuretic Peptide 798.7H, Total Protein 7.1, Albumin 3.2 Microbiology 06/11/20 Gram Stain - Final, Resulted 06/11/20 Wound Culture - Preliminary, Resulted Staphylococcus aureus 06/11/20 Influenza Types A,B Antigen (PIERRE) - Final, Complete 06/11/20 Urine Culture - Final, Complete YEAST See Comments KALIN BAE MD Jun 13, 2020 13:53
[2020-06-13] MEDS ORDERED: SULF1TAB35 PO (14:34)
[2020-06-13] MEDS ORDERED: FURO-124 PO (14:34)
[2020-06-13] MEDS ORDERED: PANT40TA52 PO (14:39)
[2020-06-13] MEDS ORDERED: ASPI-1238 PO (14:39)
[2020-06-13] MEDS ORDERED: CARV6.252 PO (14:39)
[2020-06-13] MEDS ORDERED: FERR325T18 PO (14:39)
[2020-06-13] MEDS ORDERED: SACU1TAB2 PO (14:39)
--- NOTE | 2020-06-13 23:17 | OPERATIVE REPORT ---
DATE OF SERVICE: 06/12/2020 PREOPERATIVE DIAGNOSIS: Left breast mastitis with abscess. POSTOPERATIVE DIAGNOSIS: Left breast mastitis with abscess. PROCEDURE: Left breast I and D with debridement and then packing of breast. SURGEON: Luis Daniel West DO [employer] HELPER: BALTAZAR Waldron. ANESTHESIA: LMA. SPECIMEN: Necrotic tissue. BLOOD LOSS: Scant. FLUIDS: Per anesthesia. POSTOPERATIVE CONDITION: Stable. INDICATION FOR PROCEDURE: The patient is a 25-year-old female who unfortunately has some mastitis with abscess opened spontaneously, but still has a large amount of purulent fluid. It needed to be opened, flushed and drained. FINDINGS: The patient had a large abscess cavity, some necrotic tissue, washed out and drained and packed. PROCEDURE NOTE: After informed consent was obtained, the patient was brought to the operating room, placed on the operating table in supine position. She was sterilely prepped and draped in normal fashion. I then made an incision with #15 blade along the areolar line at site of previous spontaneous opening and then around from about the 12 o'clock to 3 o'clock position, got a lot of purulent fluid, suctioned this out and then started dissecting down. There was some necrotic tissue under the nipple. About a centimeter was debrided to remove necrotic tissue with Bovie electrocautery, then broke up all the loculations. Unfortunately, the area of abscess cavity was basically almost the entire breast under the nipple area. Copiously irrigated with normal saline. Looked around, no obvious bleeding signs and after irrigating again and suctioned this out, we irrigated 3 times, then elected to pack with 1-inch iodoform packing, packed this area and then with a pressure dressing placed, the patient was then transferred to recovery room in stable condition. Sponge, instrument and needle count correct at the end of the case. Job ID: [id number] DocumentID: [id number] Dictated Date: 06/13/2020 17:37:57 Tie Tamper Date: 06/13/2020 23:15:47 Dictated By: LUIS DANIEL WEST DO [facility]
[2020-06-14] MEDS ORDERED: TROUGH ORDER-PHARMACY XX NR (07:00)
[2020-06-14] MEDS ORDERED: FLUCONAZOLE 200 MG/100 ML 50 ML, EMPTY IV BAG (PVC) 1 EA IV SCH ×2 (09:00)
== END 2020-06-13 16:07 | disposition home or self-care (01) | DRG 769 ==
LOC: EDUNIT# 11:01 → ER 11:02 → ICU 12:47
PROVIDERS: ADMIT Family Medicine; ATTEND Family Medicine
PROC: 5A1935Z Respiratory Ventilation, Less than 24 Consecutive Hours (ICD-10-PCS; 2020-06-11)
PROC: 0HBU0ZZ Excision of Left Breast, Open Approach (ICD-10-PCS; 2020-06-12)
PROC: 0H9U0ZZ Drainage of Left Breast, Open Approach (ICD-10-PCS; principal; 2020-06-12 11:05)
DX: O99.43 Diseases of the circulatory system complicating the puerperium (principal); I50.21 Acute systolic (congestive) heart failure; I21.A1 Myocardial infarction type 2; J18.9 Pneumonia, unspecified organism; O90.3 Peripartum cardiomyopathy; O91.12 Abscess of breast associated with the puerperium; O14.95 Unspecified pre-eclampsia, complicating the puerperium; I34.1 Nonrheumatic mitral (valve) prolapse; O99.53 Diseases of the respiratory system complicating the puerperium; I11.0 Hypertensive heart disease with heart failure; I16.0 Hypertensive urgency; I34.0 Nonrheumatic mitral (valve) insufficiency; D50.0 Iron deficiency anemia secondary to blood loss (chronic); D47.3 Essential (hemorrhagic) thrombocythemia; Z79.1 Long term (current) use of non-steroidal anti-inflammatories (NSAID); Z79.891 Long term (current) use of opiate analgesic; Z20.822 Contact with and (suspected) exposure to COVID-19
CPT/HCPCS: 36415; 71045; 71275; 80048; 80053; 80202; 81000; 82805; 83615; 83735; 83880; 84100; 84145; 84439; 84443; 84484; 84550; 84703; 85025; 85027; 85379; 85610; 85730; 87070; 87077; 87081; 87088; 87186; 87205; 87635; 87804; 93005; 93306; 93308; 94640; 94660; 94664; 99291

== ENCOUNTER → 2020-08-04 | Outpatient (CLI) | payer MEDICAID ==
[~2020-08-04] VITALS: Ht 160 cm; Wt 61.0 kg
[~2020-08-04] MED LIST changes: +ASPI-1238 PO; +CARV6.252 PO; +CATHETER FLUSH 10 ML SYR IV PRN; +CLIN300C12 PO; +FERR325T18 PO; +FURO-124 PO; +IBUP-2185 PO; +PANT40TA52 PO; +REGADENOSON 0.4 MG/5 ML SYR (LEXISCAN) IV ONE; +SACU1TAB2 PO; +SULF1TAB35 PO
[2020-08-04 08:53] VITALS: BP 117/65
--- NOTE | 2020-08-04 10:57 | Cardiology Stress Test Report ---
Stress Test Report Date of Procedure/Referring: Date of Procedure: Aug 04, 2020 PCP Tracy Díaz MD Admitting Physician Kyra Payne MD Indications: Heart Failure Baseline Heart Rate: 63 Baseline Blood Pressure: Blood Pressure Systolic: 117 Blood Pressure Diastolic: 65 Baseline Vitals Vital Signs Date Time Temp Pulse Resp B/P (MAP) Pulse Ox O2 Delivery O2 Flow Rate FiO2 08/04/20 08:53 67 117/65 (82) 99 Baseline EKG: Baseline EKG: NSR Summary After explaining the procedure to the patient, she signed a consent and then brought to the stress nuclear laboratory. Patient received 0.4 mg Lexiscan for stress test, ECG, heart rate and blood pressure were monitored continuously. Resting and stress dose of radio tracer w ere injected, imaging was acquired and reviewed in short axis, horizontal long axis and vertical long axis views. TID: 1.07 SSS: 4 SDS: 4 EF: 55 1. Patient tolerated Lexiscan well 2. Patient had mild sinus tachycardia after Lexiscan injection, resolved during recovery 3. Breast attenuation with mild decreased uptake at the anterior apical segment and apical segment of the anteroseptum with mild reversibility, probably secondary to breast attenuation 4. Normal left ventricular size, EF 55% TRACY DÍAZ MD Aug 04, 2020 10:56
== END ==
LOC: CARD 07:30
PROVIDERS: ATTEND Internal Medicine Cardiovascular Disease
DX: I50.9 Heart failure, unspecified (principal)
CPT/HCPCS: 78452; 93017; A9502

== ENCOUNTER → 2020-08-07 | Outpatient (CLI) | payer MEDICAID ==
[~2020-08-07] MED LIST changes: -CATHETER FLUSH 10 ML SYR IV PRN; -REGADENOSON 0.4 MG/5 ML SYR (LEXISCAN) IV ONE
== END ==
LOC: CARD 15:41
PROVIDERS: ATTEND Physician Assistant
DX: I11.0 Hypertensive heart disease with heart failure (principal); I50.22 Chronic systolic (congestive) heart failure
CPT/HCPCS: 93306